=== PATIENT | female | born 1955 | race Caucasian/White ===

== ENCOUNTER 2020-04-28 10:26 | Outpatient (REF) | payer MEDICARE, SELFPAY ==
--- NOTE | 2020-04-28 10:35 | MM_ITS ---
EXAMINATION: BONE DENSITOMETRY CLINICAL INDICATION: Age-related osteoporosis without current pathological fracture. COMPARISON: Previous BD dated 05/17/2018 and baseline BD dated 01/31/2008. TECHNIQUE: Using a Manifest DXA System (software version: 13.1) manufactured by [employer], dual-energy x-ray absorptiometry was performed of the lumbar spine and left hip. The images are of good technical quality. Summary results are attached. FINDINGS: AP SPINE L1-L4: Current: BMD 1.152 g/cm2, Z-score 1.2, T-score -0.2, normal, 6.1% increase from previous, 5.6% increase from baseline (<5% change is not significant). Prior: BMD 1.086 g/cm2. Baseline: BMD 1.091 g/cm2. LEFT FEMUR, NECK: Current: BMD 0.716 g/cm2, Z-score -0.9, T-score -2.3, osteopenia. Prior: BMD 0.668 g/cm2. Baseline: BMD 0.821 g/cm2. LEFT FEMUR, TOTAL: Current: BMD 0.831 g/cm2, Z-score -0.3, T-score -1.4, osteopenia, 1.7% decrease from previous, 10.7% decrease from baseline (<5% change is not significant). Prior: BMD 0.845 g/cm2. Baseline: BMD 0.931 g/cm2. IDENTIFIED RISK FACTORS: Osteoporosis. Chronic glucocorticoids. Menopause. HISTORY OF FRACTURE: None listed. MEDICATIONS: Calcium supplement and/or multivitamin. Vitamin D. Bisphosphonates. IMPRESSION: 1. DIAGNOSIS: Osteopenia based on the lowest T-score value of -2.3 in the femoral neck applying World Health Organization criteria. 2. 10-YEAR FRACTURE RISK PREDICTION, FRAX: Major osteoporotic fracture (clinical spine, forearm, hip or shoulder) 19.8%. Hip fracture 4.6%. 3. Treatment Recommendations: NOF guidelines recommend consideration for treatment in postmenopausal women and men age 50 and older presenting with the following: -A hip or vertebral (clinical or morphometric) fracture. -T-score less than or equal to -2.5 at the femoral neck or spine after appropriate evaluation to exclude secondary causes. -Low bone mass at the hip or spine and a 10-year fracture probability by FRAX of greater than or equal to 3% for hip fracture or greater than or equal to 20% for major osteoporotic fracture based on the [place] adapted WHO algorithm. 4. Other Recommendations: All treatment decisions require clinical judgment and consideration of individual patient factors, including patient preferences, comorbidities, previous drug use, risk factors not captured in the FRAX model (e.g. frailty, falls, vitamin D deficiency, increased bone turnover, interval significant decline in bone density) and possible under or overestimation of fracture risk by FRAX. Additional medical evaluation for secondary cause of low bone mineral density may be appropriate. FUTURE SCAN RECOMMENDATION: People with diagnosed cases of osteoporosis or at high risk for fracture should have regular bone mineral density tests. For patients eligible for Medicare, routine testing is allowed once every 2 years. The testing frequency can be increased to one year for patients who have rapidly progressing disease, those who are receiving or discontinuing medical therapy to restore bone mass, or have additional risk factors.
== END 2020-04-28 10:27 | disposition home or self-care (01) ==
LOC: HO.MAMMO 10:26
PROVIDERS: Visit Provider Internal Medicine Endocrinology, Diabetes & Metabolism
DX: Z13.820 Encounter for screening for osteoporosis (principal); M85.80 Other specified disorders of bone density and structure, unspecified site; E27.49 Other adrenocortical insufficiency; Z78.0 Asymptomatic menopausal state
CPT/HCPCS: 77080

== ENCOUNTER 2020-05-19 10:41 | Outpatient (REF) | payer MEDICARE, SELFPAY ==
[2020-05-19 12:26] LABS: Alanine Aminotransferase 22 U/L (0-31); Albumin Level 4.1 g/dL (3.5-5.0); Alkaline Phosphatase 42 U/L (39-117); Anion Gap 11 (12-20); Aspartate Amino Transferase 27 U/L (5-31); Bilirubin Total 0.8 mg/dL (0.0-1.0); Blood Urea Nitrogen 12 mg/dL (9-16); Calcium 8.9 mg/dL (8.4-10.2); Carbon Dioxide 30 mmol/L (22-29); Chloride 102 mmol/L (96-108); Estimated Glomerular Filt Rate > 60; Glucose Random 94 mg/dL (60-115); Potassium 4.6 mmol/l (3.3-5.1); Sodium 138 mmol/L (135-145)
[2020-05-19 12:48] LABS: Free T4 (Free Thyroxine) 1.32 ng/dL (0.71-1.85); Thyroid Stimulating Hormone 3.17 mIU/mL (0.32-4.0); Vitamin D 25-OH Total 41.3 ng/mL (>30)
[2020-06-02 14:47] LABS: N-Telopeptide 14 (see note); NTXCreaRU 148 mg/dL (20-275)
== END 2020-05-19 10:42 | disposition home or self-care (01) ==
LOC: HO.LAB 10:41
PROVIDERS: PCP Internal Medicine; Visit Provider Internal Medicine Endocrinology, Diabetes & Metabolism
DX: E27.40 Unspecified adrenocortical insufficiency (principal); E06.3 Autoimmune thyroiditis; M81.0 Age-related osteoporosis without current pathological fracture
CPT/HCPCS: 80053; 82306; 82523; 84439; 84443

== ENCOUNTER → 2020-06-01 10:45 | Outpatient (BNVA) | payer MEDICARE, SELFPAY | PROVIDERS: PCP Internal Medicine; Visit Provider Internal Medicine Endocrinology, Diabetes & Metabolism | DX: E27.40 Unspecified adrenocortical insufficiency (principal); M81.0 Age-related osteoporosis without current pathological fracture; E03.8 Other specified hypothyroidism; E06.3 Autoimmune thyroiditis; Z79.899 Other long term (current) drug therapy | CPT/HCPCS: 99212 ==

== ENCOUNTER 2020-09-17 11:08 | Outpatient (REF) | payer MEDICARE, SELFPAY ==
[2020-09-17 11:27] LABS: MANUAL DIFF FLAG NO
[2020-09-17 11:36] LABS: Basophils Percent Auto 0.8 % (0-2); Eosinophils Absolute Auto 0.2 X10*3/uL (0.0-0.4); Hematocrit 39.4 % (37-47); Hemoglobin 12.6 g/dl (12.0-16.0); Imm Gran Abs Auto 0.01 X10*3/uL (0.00-0.03); Imm Gran Pct Auto 0.3 % (0.0-0.4); Lymphocytes Absolute Auto 1.6 X10*3/uL (1.2-4.9); Lymphocytes Percent Auto 38.8 % (20-40); Mean Corpuscular Hemoglobin 28.1 pg (27.0-33.0); Mean Corpuscular Volume 87.9 fL (80-98); Mean Platelet Volume 11.9 fL (9.4-12.3); Monocytes Absolute Auto 0.4 X10*3/uL (0.1-1.2); Monocytes Percent Auto 8.8 % (2-11); Neutrophils Absolute Auto 1.9 X10*3/uL (2.0-8.3); Neutrophils Percent Auto 47.3 % (45-73); Platelet Count 183 X10*3/uL (160-400); Red Blood Count 4.48 X10*6/uL (4.20-5.50); Red Cell Distribution Width 12.6 % (11.0-16.0)
[2020-09-17 12:32] LABS: Alanine Aminotransferase 33 U/L (0-31); Albumin Level 4.1 g/dL (3.5-5.0); Alkaline Phosphatase 39 U/L (39-117); Anion Gap 13 (12-20); Aspartate Amino Transferase 24 U/L (5-31); Bilirubin Direct 0.2 mg/dL (0.0-0.5); Bilirubin Total 0.4 mg/dL (0.0-1.0); Blood Urea Nitrogen 15 mg/dL (9-16); Carbon Dioxide 27 mmol/L (22-29); Chloride 104 mmol/L (96-108); Estimated Glomerular Filt Rate > 60; Glucose Random 97 mg/dL (60-115); Potassium 4.5 mmol/L (3.3-5.1); Sodium 139 mmol/L (135-145); Total Protein 6.9 g/dL (6.5-8.0)
[2020-09-21 13:57] LABS: Hepatitis B Viral DNA Qn - cp <1.00 NOT DETECTED Log IU/mL (NOT DETECTED); Hepatitis B Viral DNA Qn-IU/mL <10 NOT DETECTED IU/mL (NOT DETECTED)
[2020-09-21 16:17] LABS: FIB-ALT 28 U/L (6-29); FIB-Alpha-2-Macroglobulin 168 mg/dL (106-279); FIB-Apolipoprotein A1 173 mg/dL (101-198); FIB-GGT 22 U/L (3-65); FIB-Haptoglobin 109 mg/dL (43-212); FIB-Total Bilirubin 0.4 mg/dL (0.2-1.2); Liver Fibrosis Score 0.13; Liver Fibrosis Stage F0; Nec Inflam Act Grade A0
[2020-09-23 20:52] LABS: Hepatitis Delta Antibody NEGATIVE
== END 2020-09-17 11:09 | disposition home or self-care (01) ==
LOC: HO.LAB 11:08
PROVIDERS: PCP Internal Medicine; Visit Provider Internal Medicine
DX: B19.10 Unspecified viral hepatitis B without hepatic coma (principal)
CPT/HCPCS: 36415; 80048; 80076; 81596; 85025; 86692; 87517

== ENCOUNTER → 2020-10-04 10:53 | Outpatient (BNVA) | payer MEDICARE, SELFPAY | PROVIDERS: PCP Internal Medicine; Referring Provider Internal Medicine; Visit Provider Internal Medicine | DX: B19.10 Unspecified viral hepatitis B without hepatic coma (principal) | CPT/HCPCS: 99212 ==

== ENCOUNTER 2020-11-19 11:10 | Outpatient (REF) | payer MEDICARE, SELFPAY ==
[2020-11-19 14:44] LABS: Alanine Aminotransferase 12 U/L (0-31); Albumin Level 3.8 g/dL (3.5-5.0); Alkaline Phosphatase 35 U/L (39-117); Anion Gap 11 (12-20); Aspartate Amino Transferase 19 U/L (5-31); Bilirubin Total 0.6 mg/dL (0.0-1.0); Blood Urea Nitrogen 10 mg/dL (9-16); Calcium 8.4 mg/dL (8.4-10.2); Carbon Dioxide 25 mmol/L (22-29); Chloride 107 mmol/L (96-108); Estimated Glomerular Filt Rate > 60; Glucose Fasting 83 mg/dL (60-99); Sodium 139 mmol/L (135-145); Total Protein 6.4 g/dL (6.5-8.0)
[2020-11-19 14:47] LABS: Free T4 (Free Thyroxine) 1.28 ng/dL (0.71-1.85); Vitamin D 25-OH Total 40.2 ng/mL (>30)
== END 2020-11-19 11:11 | disposition home or self-care (01) ==
LOC: HO.HMGCLDS 11:10
PROVIDERS: PCP Internal Medicine; Visit Provider Internal Medicine Endocrinology, Diabetes & Metabolism
DX: M81.0 Age-related osteoporosis without current pathological fracture (principal)
CPT/HCPCS: 36415; 80053; 82306; 84439; 84443

== ENCOUNTER 2020-11-22 | Outpatient (REF) | payer MEDICARE, SELFPAY ==
[2020-11-25 22:12] LABS: N-Telopeptide 17 (see note); NTXCreaRU 123 mg/dL (20-275)
== END 2020-11-22 00:01 | disposition home or self-care (01) ==
LOC: HO.HMGCLNP
PROVIDERS: Visit Provider Internal Medicine Endocrinology, Diabetes & Metabolism
DX: M81.0 Age-related osteoporosis without current pathological fracture (principal)
CPT/HCPCS: 82523

== ENCOUNTER → 2020-11-29 10:54 | Outpatient (BNVA) | payer MEDICARE, SELFPAY | PROVIDERS: PCP Internal Medicine; Visit Provider Internal Medicine Endocrinology, Diabetes & Metabolism | DX: E27.40 Unspecified adrenocortical insufficiency (principal); E03.8 Other specified hypothyroidism; E06.3 Autoimmune thyroiditis; M81.0 Age-related osteoporosis without current pathological fracture | CPT/HCPCS: 99212 ==

== ENCOUNTER 2021-01-27 09:27 | Outpatient (REF) | payer MEDICARE, SELFPAY ==
--- NOTE | ~2021-01-27 | MM_ITS ---
EXAMINATION: MM SCREENING DIGITAL BREAST TOMOSYNTHESIS, BILATERAL CLINICAL INFORMATION: Screening. Asymptomatic. The lifetime risk of breast cancer based on the Tyrer-Cuzick Model is 4%. COMPARISON: Mammography: 09/13/2018, 09/15/2018, 09/11/2016, 12/01/2013 TECHNIQUE: Digital breast tomosynthesis is performed in both the craniocaudal and mediolateral oblique views along with computer-aided detection (CAD). Synthesized 2D images are generated from the tomosynthesis. Additional left MLO and exaggerated left CC views are provided. FINDINGS: There are scattered areas of fibroglandular density (ACR BI-RADS breast composition Category b). Parenchymal pattern is similar to prior exams. Chronic round parenchymal asymmetry posterior upper outer left breast is stable. There is no developing density or interval mass or architectural abnormality. No abnormal calcifications. The axilla and skin contours are unremarkable. MM/MM tomosynthesis screening BI IMPRESSION: No significant changes from prior exams. ASSESSMENT: BI-RADS 2: Benign RECOMMENDATION: Routine annual mammography screening. This patient's information was entered into a reminder system with a target due date for their next mammogram.
== END 2021-01-27 09:28 | disposition home or self-care (01) ==
LOC: HO.MAMMO 09:27
PROVIDERS: PCP Internal Medicine; Visit Provider Internal Medicine
DX: Z12.31 Encounter for screening mammogram for malignant neoplasm of breast (principal)
CPT/HCPCS: 77063; 77067

== ENCOUNTER 2021-05-13 14:26 | Outpatient (REF) | payer MEDICARE, SELFPAY ==
--- NOTE | ~2021-05-13 | XR_ITS ---
EXAMINATION: XR SHOULDER, LEFT CLINICAL INFORMATION: Pain COMPARISON: None TECHNIQUE: Three views of the left shoulder. FINDINGS: No fracture or dislocation. The glenohumeral joint is well aligned. Mild narrowing of the joint space with osteophyte formation. Associated soft tissue calcification. Moderate hypertrophic degenerative change at the acromioclavicular joint which is well aligned. Soft tissue calcification seen in the subacromial region. The visualized lung is clear. The visualized ribs are intact. XR/XR shoulder LT min 2V IMPRESSION: Moderate degenerative changes at the left shoulder. Possible calcific tendinosis of the rotator cuff.
== END 2021-05-13 14:27 | disposition home or self-care (01) ==
LOC: HO.HMGCX 14:26
PROVIDERS: PCP Internal Medicine; Visit Provider Internal Medicine
DX: M25.512 Pain in left shoulder (principal)
CPT/HCPCS: 73030

== ENCOUNTER 2021-05-30 11:00 | Outpatient (REF) | payer MEDICARE, SELFPAY ==
[2021-05-30 11:53] LABS: Hematocrit 40.3 % (37.0-47.0); Hemoglobin 12.9 g/dl (12.0-16.0); Mean Corpuscular Hemoglobin 28.3 pg (27.0-33.0); Mean Corpuscular Volume 88.4 fL (80.0-98.0); Mean Platelet Volume 11.6 fL (9.4-12.3); Platelet Count 197 X10*3/uL (160-400); Red Blood Count 4.56 X10*6/uL (4.20-5.50); Red Cell Distribution Width 12.6 % (11.0-16.0); White Blood Count 4.9 X10*3/uL (4.8-10.8)
[2021-05-30 12:29] LABS: Alanine Aminotransferase 14 U/L (0-31); Alkaline Phosphatase 38 U/L (39-117); Anion Gap 13 (12-20); Aspartate Amino Transferase 18 U/L (5-31); Bilirubin Total 0.6 mg/dL (0.0-1.0); Blood Urea Nitrogen 15 mg/dL (9-16); Calcium 9.1 mg/dL (8.4-10.2); Carbon Dioxide 24 mmol/L (22-29); Chloride 104 mmol/L (96-108); Cholesterol 278 mg/dL; Estimated Glomerular Filt Rate > 60; Glucose Fasting 91 mg/dL (60-99); HDL Cholesterol 53 mg/dL; LDL Cholesterol Calculated 197 mg/dl; Potassium 4.2 mmol/L (3.3-5.1); Sodium 137 mmol/L (135-145); Total Protein 6.8 g/dL (6.5-8.0); Triglycerides 140 mg/dL
[2021-05-30 12:30] LABS: TSH reflex Free T4 3.56 uIU/mL (0.32-4.0)
== END 2021-05-30 11:01 | disposition home or self-care (01) ==
LOC: HO.LAB 11:00
PROVIDERS: PCP Internal Medicine; Visit Provider Internal Medicine
DX: E78.5 Hyperlipidemia, unspecified (principal); E03.9 Hypothyroidism, unspecified; M81.0 Age-related osteoporosis without current pathological fracture
CPT/HCPCS: 36415; 80053; 80061; 84443; 85027

== ENCOUNTER → 2021-06-13 08:16 | Outpatient (BNVA) | payer MEDICARE, SELFPAY | PROVIDERS: PCP Internal Medicine; Visit Provider Internal Medicine | DX: E03.8 Other specified hypothyroidism (principal); E06.3 Autoimmune thyroiditis; E27.40 Unspecified adrenocortical insufficiency; E55.9 Vitamin D deficiency, unspecified; M81.0 Age-related osteoporosis without current pathological fracture | CPT/HCPCS: 99212 ==

== ENCOUNTER 2021-06-15 08:21 | Outpatient (REF) | payer MEDICARE, SELFPAY ==
[2021-06-15 09:22] LABS: Anion Gap 11 (12-20); Blood Urea Nitrogen 14 mg/dL (9-16); Calcium 10.2 mg/dL (8.4-10.2); Carbon Dioxide 29 mmol/L (22-29); Chloride 106 mmol/L (96-108); Estimated Glomerular Filt Rate 53; Glucose Random 94 mg/dL (60-115); Potassium 4.5 mmol/L (3.3-5.1); Sodium 141 mmol/L (135-145)
[2021-06-15 10:47] LABS: Cortisol Random 1.6 ug/dL
[2021-06-17 19:36] LABS: Adrenocorticotropic Hormone 22 pg/mL (6-50)
== END 2021-06-15 08:22 | disposition home or self-care (01) ==
LOC: HO.LAB 08:21
PROVIDERS: PCP Internal Medicine; Visit Provider Internal Medicine
DX: E27.40 Unspecified adrenocortical insufficiency (principal)
CPT/HCPCS: 36415; 80048; 82024; 82533

== ENCOUNTER 2021-06-20 10:37 | Outpatient (REF) | payer MEDICARE, SELFPAY ==
--- NOTE | ~2021-06-20 | MR_ITS ---
EXAMINATION: MR BRAIN WITHOUT AND WITH CONTRAST CLINICAL INFORMATION: Unspecified adrenal cortical insufficiency. COMPARISON: CT scan of the head 02/09/2019. TECHNIQUE: Multiplanar MR imaging of the brain was performed without and with contrast. A total of 3.5 mL Gadavist was utilized for this examination. FINDINGS: There is a questionable rounded focus of differential enhancement involving the anterior lobe of the pituitary gland best depicted on coronal image 31 of 37 series 9 measuring 0.3 cm in diameter. No suprasellar mass effect or chiasmatic compression. The overall size of the pituitary tissue remains within limits of normal variation measuring 0.4 cm in height. No suprasellar mass effect or chiasmatic compression. The pituitary stalk deviates to the right. Cavernous sinuses enhance symmetrically. Cavernous internal carotid artery flow voids are maintained. Postcontrast images reveal no abnormal mass or enhancement within the intracranial compartment. No intracranial mass effect or midline shift. Lateral and third ventricles are normal. No hydrocephalus. Midline structures including the cervicomedullary junction are normal. No acute bone marrow signal changes. There is no mastoid or middle ear effusion. Mild paranasal sinus mucosal thickening within ethmoid air cells and the maxillary sinuses. Globes and orbits are symmetric. MR/MR head/brain wo/w con IMPRESSION: There is a questionable rounded lesion within the anterior lobe of the pituitary gland. The overall size of the pituitary gland however remains within limits of normal variation. No suprasellar mass effect or chiasmatic compression. No abnormal mass or enhancement visualized elsewhere within the intracranial compartment.
== END 2021-06-20 10:38 | disposition home or self-care (01) ==
LOC: HO.MRI 10:37
PROVIDERS: PCP Internal Medicine; Visit Provider Internal Medicine
DX: E27.40 Unspecified adrenocortical insufficiency (principal)
CPT/HCPCS: 70553; A9585

== ENCOUNTER 2021-06-28 10:26 | Outpatient (REF) | payer MEDICARE, SELFPAY ==
--- NOTE | ~2021-06-28 | US_ITS ---
EXAMINATION: US THYROID CLINICAL INFORMATION: Other specified hypothyroidism. COMPARISON: None. TECHNIQUE: Linear transducer grayscale and color Doppler examination with attention to the region of the thyroid. FINDINGS: SIZE: Measurements of the thyroid lobes and nodules are given in sagittal, anteroposterior and transverse dimensions respectively. Right Thyroid Lobe: 3.5 x 1.5 x 1.1 cm, volume 3.0 mL. Parenchyma: The gland echotexture is heterogeneous. Thyroid vascularity is normal. Left Thyroid Lobe: 4.2 x 1.7 x 1.0 cm, volume 3.7 mL. Parenchyma: The gland echotexture is heterogeneous. Thyroid vascularity is normal. Isthmus: 0.4 cm in maximum AP dimension. No focal thyroid nodule is seen. NODES: No lymphadenopathy is seen in the tissue surrounding the thyroid gland. US/US thyroid IMPRESSION: Non-enlarged heterogenous thyroid lobes without nodules. ACR TI-RADS RECOMMENDATION REFERENCE: Ultrasound-guided fine-needle aspiration, followup ultrasound, no further follow up. * TR1 (0 point) and TR 2 (2 points): No FNA or follow up * TR3 (3 points): FNA if more than or equal to 2.5 cm in maximum dimension, followup ultrasound in 1, 3 and 5 years if 1.5 to 2.4 cm in maximum dimension. * TR4 (4-6 points): FNA if more than or equal to 1.5 cm in maximum dimension, followup ultrasound in 1, 2, 3 and 5 years if 1 to 1.4 cm in maximum dimension. * TR5 (more than or equal to 7 points): FNA if more than or equal to 1 cm in maximum dimension, followup ultrasound every year for 5 years if 0.5 to 0.9 cm in maximum dimension. * TR3, TR4 or TR5 nodules that are below the size threshold for follow up receive no follow up.
== END 2021-06-28 10:27 | disposition home or self-care (01) ==
LOC: HO.HMGCX 10:26
PROVIDERS: PCP Internal Medicine; Visit Provider Internal Medicine
DX: E03.8 Other specified hypothyroidism (principal); E06.3 Autoimmune thyroiditis
CPT/HCPCS: 76536

== ENCOUNTER 2021-06-29 09:47 | Outpatient (REF) | payer MEDICARE, SELFPAY ==
[2021-07-01 20:07] LABS: HPV mRNA E6/E7 Not Detected (Not Detected)
== END 2021-06-29 09:48 | disposition home or self-care (01) ==
LOC: HO.LAB 09:47
PROVIDERS: Visit Provider Internal Medicine
DX: Z00.00 Encounter for general adult medical examination without abnormal findings (principal); H93.19 Tinnitus, unspecified ear; Z11.51 Encounter for screening for human papillomavirus (HPV)
CPT/HCPCS: 87624; 88142

== ENCOUNTER → 2021-09-19 10:54 | Outpatient (BNVA) | payer MEDICARE, SELFPAY | PROVIDERS: Visit Provider Internal Medicine | DX: B19.10 Unspecified viral hepatitis B without hepatic coma (principal) | CPT/HCPCS: 99212 ==

== ENCOUNTER 2021-10-28 09:01 | Outpatient (REF) | payer MEDICARE, SELFPAY ==
[2021-10-28 10:22] LABS: INTERNATIONAL NORM RATIO 0.9 (0.9-1.1); Prothrombin Time 10.6 SEC (9.9-13.0)
[2021-10-28 10:48] LABS: Osmolality, Serum 294 mosm/kg (281-305)
[2021-10-28 10:59] LABS: Alanine Aminotransferase 76 U/L (0-31); Albumin Level 4.2 g/dL (3.5-5.0); Alkaline Phosphatase 92 U/L (39-117); Anion Gap 11 (12-20); Aspartate Amino Transferase 56 U/L (5-31); Bilirubin Total 0.6 mg/dL (0.0-1.0); Blood Urea Nitrogen 16 mg/dL (9-16); Calcium 9.7 mg/dL (8.4-10.2); Carbon Dioxide 27 mmol/L (22-29); Chloride 105 mmol/L (96-108); Cholesterol 186 mg/dL; Estimated Glomerular Filt Rate 59; Glucose Fasting 92 mg/dL (60-99); HDL Cholesterol 65 mg/dL; LDL Cholesterol Calculated 106 mg/dl; Phosphorus 3.4 mg/dL (2.7-4.5); Potassium 4.4 mmol/L (3.3-5.1); Sodium 139 mmol/L (135-145); Total Protein 7.2 g/dL (6.5-8.0); Triglycerides 76 mg/dL
[2021-10-28 11:06] LABS: Free T4 (Free Thyroxine) 1.43 ng/dL (0.71-1.85); Vitamin D 25-OH Total 44.2 ng/mL (>30)
[2021-10-28 11:09] LABS: Thyroid Stimulating Hormone 0.86 uIU/mL (0.32-4.0)
[2021-10-28 12:00] LABS: Cortisol Random 6.6 ug/dL
[2021-10-31 16:27] LABS: Hepatitis B Viral DNA Qn - cp <1.00 NOT DETECTED Log IU/mL (NOT DETECTED); Hepatitis B Viral DNA Qn-IU/mL <10 NOT DETECTED IU/mL (NOT DETECTED)
[2021-10-31 20:51] LABS: Follicle Stimulating Hormone 21.5 mIU/mL; Prolactin 5.1 ng/mL; Sex Hormone Binding Globulin 39 nmol/L (14-73)
[2021-10-31 21:31] LABS: Triiodothyronine T3 Total 95 ng/dL (76-181)
[2021-11-01 15:51] LABS: Calcium, Ionized 5.2 mg/dL (4.8-5.6)
[2021-11-01 18:27] LABS: FIB-ALT 68 U/L (6-29); FIB-Alpha-2-Macroglobulin 204 mg/dL (106-279); FIB-Apolipoprotein A1 213 mg/dL (101-198); FIB-GGT 153 U/L (3-65); FIB-Haptoglobin 127 mg/dL (43-212); FIB-Total Bilirubin 0.7 mg/dL (0.2-1.2); Liver Fibrosis Score 0.31; Liver Fibrosis Stage F1; Nec Inflam Act Grade A1-A2; Nec Inflam Act Score 0.41
[2021-11-01 21:46] LABS: Adrenocorticotropic Hormone 18 pg/mL (6-50)
[2021-11-01 22:42] LABS: Prot Elec - Albumin 4.1 g/dL (3.8-4.8); Prot Elec - Alpha1 0.3 g/dL (0.2-0.3); Prot Elec - Alpha2 0.8 g/dL (0.5-0.9); Prot Elec - Beta 1 0.4 g/dL (0.4-0.6); Prot Elec - Beta 2 0.3 g/dL (0.2-0.5); Prot Elec - Gamma 1.2 g/dL (0.8-1.7)
[2021-11-02 00:21] LABS: Calcium (PTHI) 9.9 mg/dL (8.6-10.4); PTHI 48 pg/mL (16-77)
[2021-11-03 15:36] LABS: IGF-1 (Somatomedin C) 55 ng/mL (41-279); IGF-1 Z Score (Female) -1.4 SD (-2.0 - +2.0)
[2021-11-05 15:35] LABS: N-Telopeptide 21 (see note); NTXCreaRU 120 mg/dL (20-275)
[2021-11-05 20:52] LABS: Estradiol Free <0.03 pg/mL; Estradiol, Ultrasensitive <2 pg/mL
== END 2021-10-28 09:02 | disposition home or self-care (01) ==
LOC: HO.HMGCLDS 09:01
PROVIDERS: Internal Medicine; PCP Internal Medicine; Visit Provider Internal Medicine
DX: E78.5 Hyperlipidemia, unspecified (principal); E27.40 Unspecified adrenocortical insufficiency; E55.9 Vitamin D deficiency, unspecified; B19.10 Unspecified viral hepatitis B without hepatic coma; M81.0 Age-related osteoporosis without current pathological fracture; E03.8 Other specified hypothyroidism; E06.3 Autoimmune thyroiditis
CPT/HCPCS: 36415; 80053; 80061; 81596; 82024; 82306; 82330; 82523; 82533; 82670; 82681; 83001; 83002; 83930; 83970; 84075; 84100; 84146; 84165; 84270; 84305; 84439; 84443; 84480; 85610; 87517

== ENCOUNTER 2021-11-02 11:34 | Outpatient (REF) | payer MEDICARE, SELFPAY ==
[2021-11-02 15:00] LABS: Creatinine, mg/dL 60.36
[2021-11-03 06:50] LABS: Total Volume 24 Hour Urine 1625 mL
[2021-11-04 17:11] LABS: Calcium, 24 Hr Urine 140 mg/24 h; Calcium/Creatinine Ratio 132 mg/g creat (30-275); Creatinine 24Hr Urine 1.06 g/24 h (0.50-2.15)
== END 2021-11-02 11:35 | disposition home or self-care (01) ==
LOC: HO.HMGCLNP 11:34
PROVIDERS: Visit Provider Internal Medicine
DX: M81.0 Age-related osteoporosis without current pathological fracture (principal)
CPT/HCPCS: 82340; 82570

== ENCOUNTER → 2021-11-07 08:01 | Outpatient (BNVA) | payer MEDICARE, SELFPAY | PROVIDERS: Visit Provider Internal Medicine | DX: M81.0 Age-related osteoporosis without current pathological fracture (principal); E27.40 Unspecified adrenocortical insufficiency; E03.8 Other specified hypothyroidism; E06.3 Autoimmune thyroiditis; E55.9 Vitamin D deficiency, unspecified; D35.2 Benign neoplasm of pituitary gland; Z79.899 Other long term (current) drug therapy | CPT/HCPCS: Q3014 ==

== ENCOUNTER 2021-11-08 09:55 | Outpatient (REF) | payer MEDICARE, SELFPAY ==
--- NOTE | ~2021-11-08 | US_ITS ---
EXAMINATION: US ABDOMEN COMPLETE CLINICAL INFORMATION: Unspecified viral hepatitis B without hepatic coma. COMPARISON: Ultrasound abdomen 04/13/2020 and 02/09/2019. TECHNIQUE: Real-time imaging of the abdominal viscera. FINDINGS: PANCREAS: Much of the pancreas is obscured by bowel gas. Visualized portions of the pancreatic head and body are unremarkable. ABDOMINAL AORTA: INFERIOR VENA CAVA: Visualized portions are normal. LIVER: Question slightly increased echotexture of the liver parenchyma. The liver is normal in size. The liver contour is normal. No focal hepatic lesion. There is no intrahepatic biliary duct dilatation seen. GALLBLADDER: The gallbladder is physiologically distended. There is a mobile echogenic gallstone near the neck of the gallbladder. There is a possible 3 x 2 mm structure along the gallbladder wall represent a tiny polyp or focus of redundant mucosa. There is no wall thickening or pericholecystic fluid. No sonographic Gutiérrez sign. COMMON BILE DUCT: Normal in caliber measuring 0.4 cm in diameter. RIGHT KIDNEY: There is a 1.2 x 0.8 x 1.1 cm simple cyst at the midpole. Minimal fullness of the renal pelvis without calyceal dilation. Hydronephrosis or renal calculi. The kidney measures 9.8 cm in maximum dimension. LEFT KIDNEY: There is an 8 x 6 x 7 mm simple cyst at the lower pole. No hydronephrosis or renal calculi. The kidney measures 9.5 cm in maximum dimension. SPLEEN: Normal. The spleen measures 7.1 cm in maximum dimension. FREE FLUID: None. US/US abdomen complete IMPRESSION: Arguable slightly increased echogenicity of liver parenchyma, otherwise unremarkable appearance of the liver. Cholelithiasis and possible 3 x 2 mm polyp versus redundant mucosa along the wall the gallbladder. Minimal fullness of the right renal pelvis.
== END 2021-11-08 09:56 | disposition home or self-care (01) ==
LOC: HO.US 09:55
PROVIDERS: Visit Provider Internal Medicine
DX: B19.10 Unspecified viral hepatitis B without hepatic coma (principal)
CPT/HCPCS: 76700

== ENCOUNTER 2021-11-09 07:57 | Outpatient (REF) | payer MEDICARE, SELFPAY ==
[2021-11-09 08:51] LABS: Alanine Aminotransferase 69 U/L (0-31); Albumin Level 4.1 g/dL (3.5-5.0); Alkaline Phosphatase 95 U/L (39-117); Anion Gap 11 (12-20); Aspartate Amino Transferase 49 U/L (5-31); Bilirubin Direct 0.3 mg/dL (0.0-0.5); Bilirubin Total 0.7 mg/dL (0.0-1.0); Blood Urea Nitrogen 19 mg/dL (9-16); Calcium 9.6 mg/dL (8.4-10.2); Carbon Dioxide 27 mmol/L (22-29); Chloride 106 mmol/L (96-108); Estimated Glomerular Filt Rate 58; Glucose Random 91 mg/dL (60-115); Phosphorus 3.9 mg/dL (2.7-4.5); Potassium 4.2 mmol/L (3.3-5.1); Sodium 140 mmol/L (135-145); Total Protein 6.9 g/dL (6.5-8.0)
[2021-11-09 09:08] LABS: Osmolality, Serum 296 mosm/kg (281-305)
[2021-11-09 09:13] LABS: Free T4 (Free Thyroxine) 1.65 ng/dL (0.71-1.85); Thyroid Stimulating Hormone 0.96 uIU/mL (0.32-4.0); Vitamin D 25-OH Total 42.5 ng/mL (>30)
[2021-11-09 09:53] LABS: Cortisol Random 2.4 ug/dL
[2021-11-11 06:46] LABS: Triiodothyronine T3 Total 90 ng/dL (76-181)
[2021-11-11 07:16] LABS: DHEA Sulfate 5 mcg/dL (9-118); Sex Hormone Binding Globulin 43 nmol/L (14-73)
[2021-11-11 18:46] LABS: Follicle Stimulating Hormone 20.6 mIU/mL; Lutenizing Hormone 7.1 mIU/mL; Prolactin Undiluted 5.2 ng/mL
[2021-11-14 07:17] LABS: Calcium (PTHI) 9.5 mg/dL (8.6-10.4); PTHI 34 pg/mL (16-77)
[2021-11-14 21:31] LABS: Adrenocorticotropic Hormone 24 pg/mL (6-50)
[2021-11-18 15:42] LABS: IGF-1 (Somatomedin C) 52 ng/mL (41-279); IGF-1 Z Score (Female) -1.5 SD (-2.0 - +2.0)
[2021-12-01 22:54] LABS: Estradiol Free <0.04 pg/mL; Estradiol, Ultrasensitive <2 pg/mL
== END 2021-11-09 07:58 | disposition home or self-care (01) ==
LOC: HO.LAB 07:57
PROVIDERS: PCP Internal Medicine; Visit Provider Internal Medicine
DX: M81.0 Age-related osteoporosis without current pathological fracture (principal); E27.40 Unspecified adrenocortical insufficiency; D35.2 Benign neoplasm of pituitary gland; B19.10 Unspecified viral hepatitis B without hepatic coma
CPT/HCPCS: 36415; 80048; 80076; 82024; 82306; 82533; 82627; 82670; 82681; 83001; 83002; 83930; 83970; 84100; 84146; 84270; 84305; 84439; 84443; 84480

== ENCOUNTER 2022-02-02 10:30 | Outpatient (REF) | payer MEDICARE, SELFPAY ==
--- NOTE | ~2022-02-02 | MM_ITS ---
EXAMINATION: MM SCREENING DIGITAL BREAST TOMOSYNTHESIS, BILATERAL CLINICAL INFORMATION: Screening. Asymptomatic. The lifetime risk of breast cancer based on the Tyrer-Cuzick Model is 3.5%. COMPARISON: Mammography: January 27, 2021 and studies dating back to June 30, 2009 TECHNIQUE: Digital breast tomosynthesis is performed in both the craniocaudal and mediolateral oblique views along with computer-aided detection (CAD). Synthesized 2D images are generated from the tomosynthesis. FINDINGS: There are scattered areas of fibroglandular density (ACR BI-RADS breast composition Category b). There are no significant masses, abnormal calcifications, or other abnormalities. Stable ill-defined density with calcifications again seen upper outer aspect of the left breast. MM/MM tomosynthesis screening BI IMPRESSION: There are no significant changes from prior study. ASSESSMENT: BI-RADS 2: Benign RECOMMENDATION: Routine annual mammography screening. This patient's information was entered into a reminder system with a target due date for their next mammogram.
== END 2022-02-02 10:31 | disposition home or self-care (01) ==
LOC: HO.MAMMO 10:30
PROVIDERS: Visit Provider Internal Medicine
DX: Z12.31 Encounter for screening mammogram for malignant neoplasm of breast (principal)
CPT/HCPCS: 77063; 77067

== ENCOUNTER → 2022-02-13 07:50 | Outpatient (BNVA) | payer MEDICARE, SELFPAY | PROVIDERS: PCP Internal Medicine; Visit Provider Internal Medicine | DX: M81.0 Age-related osteoporosis without current pathological fracture (principal); E27.40 Unspecified adrenocortical insufficiency; E03.8 Other specified hypothyroidism; E06.3 Autoimmune thyroiditis; E55.9 Vitamin D deficiency, unspecified; D35.2 Benign neoplasm of pituitary gland; E23.0 Hypopituitarism; Z79.899 Other long term (current) drug therapy | CPT/HCPCS: 99212 ==

== ENCOUNTER 2022-02-28 13:51 | Outpatient (REF) | payer MEDICARE, SELFPAY ==
[2022-02-28 16:32] LABS: Anion Gap 14 (12-20); Blood Urea Nitrogen 15 mg/dL (9-16); Calcium 8.9 mg/dL (8.4-10.2); Carbon Dioxide 26 mmol/L (22-29); Chloride 104 mmol/L (96-108); Estimated Glomerular Filt Rate 53; Glucose Random 94 mg/dL (60-115); Potassium 4.2 mmol/L (3.3-5.1); Sodium 140 mmol/L (135-145)
[2022-02-28 16:49] LABS: Cortisol Random 1.8 ug/dL
[2022-03-01 20:26] LABS: DHEA Sulfate 7 mcg/dL (9-118)
== END 2022-02-28 13:52 | disposition home or self-care (01) ==
LOC: HO.LAB 13:51
PROVIDERS: PCP Internal Medicine; Visit Provider Internal Medicine
DX: E27.40 Unspecified adrenocortical insufficiency (principal); M81.0 Age-related osteoporosis without current pathological fracture
CPT/HCPCS: 36415; 80048; 82040; 82533; 82627

== ENCOUNTER 2022-05-26 06:06 | Inpatient (IN) | payer MEDICARE, SELFPAY ==
[2022-05-26 06:22] VITALS: BP 164/78; PULSE 67; RESP 16; TEMP 36.6; O2SAT 98; BMI 27.8
[2022-05-26 06:35] LABS: Eosinophils Absolute Auto 0.1 X10*3/uL (0.0-0.4); Eosinophils Percent Auto 2.1 % (0-4); Hematocrit 38.4 % (37.0-47.0); Hemoglobin 12.7 g/dl (12.0-16.0); Lymphocytes Absolute Auto 1.4 X10*3/uL (1.2-4.9); Lymphocytes Percent Auto 59.6 % (20-40); Mean Corpuscular HGB Conc 33.1 g/dl (31.0-35.0); Mean Corpuscular Hemoglobin 27.7 pg (27.0-33.0); Mean Corpuscular Volume 83.7 fL (80.0-98.0); Mean Platelet Volume 11.2 fL (9.4-12.3); Monocytes Absolute Auto 0.4 X10*3/uL (0.1-1.2); Monocytes Percent Auto 14.6 % (2-11); Neutrophils Absolute Auto 0.6 x10*3/uL (2.0-8.3); Neutrophils Percent Auto 23.7 % (45-73); Platelet Count 147 X10*3/uL (160-400); Red Blood Count 4.59 X10*6/uL (4.20-5.50); Red Cell Distribution Width 12.2 % (11.0-16.0); SCAN SMEAR FLAG 1
[2022-05-26 06:38] LABS: MANUAL DIFF FLAG SCAN; White Blood Count 2.4 X10*3/uL (4.8-10.8)
[2022-05-26 06:42] LABS: COVID-19 Test Positive (Negative); IDNOW Serial# 9DB6401D
[2022-05-26 06:47] LABS: Influenza A Negative (Negative); Influenza B2 Negative (Negative)
[2022-05-26 06:57] LABS: Alanine Aminotransferase 27 U/L (0-31); Alkaline Phosphatase 58 U/L (39-117); Anion Gap 14 (12-20); Aspartate Amino Transferase 29 U/L (5-31); Bilirubin Total 0.6 mg/dL (0.0-1.0); Blood Urea Nitrogen 11 mg/dL (9-16); Carbon Dioxide 25 mmol/L (22-29); Chloride 95 mmol/L (96-108); Creatinine Clr Calc Pharmacy 58.5; Estimated Glomerular Filt Rate > 60; Glucose Random 95 mg/dL (60-115); Potassium 4.1 mmol/L (3.3-5.1); Sodium 130 mmol/L (135-145); Total Protein 6.8 g/dL (6.5-8.0)
[2022-05-26 07:15] LABS: SLIDE REVIEW VERIFIED
--- NOTE | 2022-05-26 07:19 | ED_ITS ---
HPI - Nausea/Vomiting/Diarrhea General Chief complaint: Nausea/Vomiting/Diarrhea Stated complaint: Vomiting, Endo Doc referred her to come in Time Seen by Provider: 05/26/22 06:59 Source: patient and family History of Present Illness HPI Narrative: 58-year-old female with past medical history of adrenal insufficiency presents to the emergency department today complaining of nausea and vomiting. Has been going on for approximately 24 hours. Patient has been unable to take her regular dose of hydrocortisone secondary to nausea and vomiting. The patient st ates she was diagnosed COVID several days ago, and has a mild cough, but no other significant symptoms until the vomiting started yesterday. It is moderate and intermittent. MD elicited complaint: nausea and vomiting Onset (ago): day(s) (1) Associated nausea: Yes Associated abdominal pain: No Severity: moderate Relieving factors: none Related Data Previous Rx's Medication Instructions Recorded levothyroxine 100 mcg tablet 100 mcg PO DAILY 90 days #90 tabs 09/02/21 atorvastatin 40 mg tablet (Lipitor) 40 mg PO DAILY #90 tabs 09/05/21 hydrocortisone 5 mg tablet See Rx Instructions PO BID 90 days 02/13/22 #270 tabs hydrocortisone sod succ (PF) 100 100 mg (2 mL) IM ONCE PRN Unable 02/13/22 mg/2 mL solution for injection to tolerate PO 30 days #1 ea (Solu-Cortef Act-O-Vial (PF)) nirmatrelvir 300 mg (150 mg See Rx Instructions PO .COMPLEX 05/25/22 x2)-ritonavir 100 mg tablet,dose #30 ea pack(EUA) (Paxlovid) Allergies Allergy/AdvReac Type Severity Reaction Status Date / Time No Known Allergies Allergy Verified 02/13/22 08:21 [No Known Allergies*] Review of Systems Review of Systems: Yes all other systems are reviewed and are negative Constitutional: Constitutional: Denies chills, Denies fever(s) and Denies headache(s) Eyes: Eyes: Denies blurry vision and Denies change in vision ENT: Denies dizziness, Denies otalgia and Denies headache(s) Cardiovascular: Cardiovascular: Denies chest pain, Denies lightheadedness and Denies dyspnea Respiratory: Respiratory: Reports no additional respiratory complaints and Denies dyspnea Gastrointestinal: Gastrointestinal: Denies abdominal pain, Denies diarrhea, Reports nausea, Reports vomiting and Denies hematemesis Genitourinary: Genitourinary: Reports no additional female genitourinary complaints Musculoskeletal: Musculoskeletal: Reports no additional musculoskeletal complaints Neurologic: Reports system reviewed and no additional complaints, except as do cumented, Denies Abnormal speech present, Denies dizziness and Denies headache(s) [facility] Past Medical History Attestation statement: The following information was validated with the patient. Medical History Adrenal cortex insufficiency Adrenal insufficiency Annual physical exam Hepatitis B Hepatitis B Hyperlipidemia Hypothyroidism Osteoporosis Panhypopituitarism Pituitary microadenoma Shoulder pain Tick bite Tinnitus Vitamin D deficiency Surgical History History of carpal tunnel surgery Family History Family History Father No problems noted. Mother No problems noted. Brother Hyperparathyroidism Sister Osteoporosis Social History Social History Housing: House Alcohol intake: former Patient Tobacco Use Status: Former Tobacco user Cigarette Packs Per Day: 1 Years Smoked: 25 Smoked in Last 30 Days: No e-Cigarette/Vaping Use: Never Used Advance Directives: No Advance Directives Information Provided: No Current occupational status: employed and retired Cognitive needs: No Hearing needs: No Vision needs: Yes Physical Exam Vital Signs: Vital Signs: Last Vital Signs Temp 98.3 F 05/26/22 12:51 Pulse 72 05/26/22 12:51 Resp 20 05/26/22 12:51 BP 136/69 05/26/22 12:51 Pulse Ox 96 05/26/22 12:51 O2 Del Method 05/26/22 12:51 BMI result Body Mass Index 27.8 Vital signs normal except blood pressure noted to be mildly hypertensive Const: General: cooperative, comfortable and acute distress mild Nutritional Appearance: overweight Orientation/consciousness: patient oriented x3 HEENT: Head: Yes normal to inspection, Yes normocephalic and Yes atraumatic Ears: hearing grossly normal bilaterally and external ears normal General nose exam: Normal external nose present Face and sinus: Yes normal facial exam Mouth: Normal oral and palatal mucosa present Eyes: General: appearance normal, both eyes and all related structures Conjunctivae: conjunctivae normal Sclerae: sclerae normal Pupils: Equal, round and reactive pupils present EOM: EOMs intact bilaterally Neck: Neck: Yes normal visual inspection and Yes full ROM Resp: Effort & Inspection: normal respiratory effort, able to speak in complete sentences, no cough and no respiratory distress Cardio: Rate: regular rate Rhythm: regular rhythm GI: Inspection: Yes normal to inspection Palpation (GI): nontender and no masses : General: Yes CVA tenderness Back/Spine/Pelvis: Back: CVA tenderness Cervical Spine: normal cervical lordosis and cervical ROM normal Skin: General skin exam: no rashes or lesions noted and no pallor Neuro: General: patient oriented x3 Cranial nerves: Yes CN's II-XII intact bilaterally and Yes Equal, round and reactive pupils present Speech: No Abnormal speech present Course Consultations Consultation #1: Dr. Moran from endocrinology Time: 11:00 Medications Administered Discontinued Medications Generic Name Dose Route Start Last Admin Trade Name Freq PRN Reason Stop Dose Admin Hydrocortisone Sodium Succinate 100 mg 05/26/22 07:10 05/26/22 08:36 Hydrocortisone Sod Succ/Pf 100 Mg Vial IVPUSH 05/26/22 07:11 100 mg ONCE ONE Administration Sodium Chloride 1,000 mls @ 999 mls/hr 05/26/22 08:49 05/26/22 10:18 Ns IV 05/26/22 09:49 Infused .Q1H1M ONE Infusion Ondansetron HCl 4 mg 05/26/22 07:15 05/26/22 08:36 Ondansetron Hcl 4 Mg/2 Ml Vial IVPUSH 05/26/22 07:16 4 mg ONCE ONE Administration MDM - Nausea/Vomiting/Diarrhea MDM Narrative Medical decision making narrative: 58-year-old female with history of adrenal insufficiency presents to the emergency department today after having vomiting for 24 hours. Patient is COVID positive, which is most likely contributory cause to the patient's symptoms. She has been unable to drink or eat and therefore has not taken any of her adrenal medications in the last 24 hours. Laboratory studies were reviewed which showed a low sodium x2. Consultation was undertaken with Dr. Moran, the collection systems administrator. the patient did receive IV fluids and 100 mg of IV hydrocortisone here in the ED.The patient will be admitted to the hospital for additional management Differential Diagnosis Differential diagnosis: Likely dehydration Medical Records Attestation: I reviewed the patient's medical records. Lab Data Attestation: I reviewed the patient's lab results. Lab results narrative: low-sodium and low CO2. Low WBC count. Result diagrams: 05/26/22 06:24 05/26/22 11:35 Labs: Lab Results 05/26/22 05/26/22 05/26/22 Range/Units 06:24 06:24 06:24 WBC 2.4 L (4.8-10.8) X10*3/uL RBC 4.59 (4.20-5.50) X10*6/uL Hgb 12.7 (12.0-16.0) g/dl Hct 38.4 (37.0-47.0) % MCV 83.7 (80.0-98.0) fL MCH 27.7 (27.0-33.0) pg MCHC 33.1 (31.0-35.0) g/dl RDW 12.2 (11.0-16.0) % Plt Count 147 L D (160-400) X10*3/uL MPV 11.2 (9.4-12.3) fL Immature Gran % (Auto) 0.0 (0.0-0.4) % Neut % (Auto) 23.7 L (45-73) % Lymph % (Auto) 59.6 H (20-40) % [place] % (Auto) 14.6 H (2-11) % Eos % (Auto) 2.1 (0-4) % Baso % (Auto) 0.0 (0-2) % Lymph # (Auto) 1.4 (1.2-4.9) X10*3/uL [place] # (Auto) 0.4 (0.1-1.2) X10*3/uL Eos # (Auto) 0.1 (0.0-0.4) X10*3/uL Baso # (Auto) 0.0 (0.0-0.2) X10*3/uL Abs Immat Gran (auto) 0.00 (0.00-0.03) X10*3/uL Absolute Neuts (auto) 0.6 L (2.0-8.3) x10*3/uL Absolute Nucleated RBC 0.000 (0.0-0.012) X10*3/uL Nucleated RBC % (auto) 0.0 (0.0-0.2) /100WBC Smear Tech's Comments VERIFIED Smear Path Review SEE NOTE Sodium 130 L (135-145) mmol/L Potassium 4.1 (3.3-5.1) mmol/L Chloride 95 L (96-108) mmol/L Carbon Dioxide 25 (22-29) mmol/L Anion Gap 14 (12-20) BUN 11 (9-16) mg/dL Creatinine 0.87 (0.5-1.4) mg/dL Estim Creat Clear Calc 58.5 Estimated GFR > 60 Random Glucose 95 (60-115) mg/dL Calcium 9.0 (8.4-10.2) mg/dL Total Bilirubin 0.6 (0.0-1.0) mg/dL AST 29 D (5-31) U/L ALT 27 (0-31) U/L Alkaline Phosphatase 58 D (39-117) U/L Total Protein 6.8 (6.5-8.0) g/dL Albumin 4.0 (3.5-5.0) g/dL COVID-19 ([facility]) (Negative) COVID-19 Clin Com Influenza Type A ([facility]) Negative (Negative) Influenza Type B ([facility]) Negative (Negative) Influenza A & B Note See Note 05/26/22 05/26/22 Range/Units 06:24 11:35 WBC (4.8-10.8) X10*3/uL RBC (4.20-5.50) X10*6/uL Hgb (12.0-16.0) g/dl Hct (37.0-47.0) % MCV (80.0-98.0) fL MCH (27.0-33.0) pg MCHC (31.0-35.0) g/dl RDW (11.0-16.0) % Plt Count (160-400) X10*3/uL MPV (9.4-12.3) fL Immature Gran % (Auto) (0.0-0.4) % Neut % (Auto) (45-73) % Lymph % (Auto) (20-40) % [place] % (Auto) (2-11) % Eos % (Auto) (0-4) % Baso % (Auto) (0-2) % Lymph # (Auto) (1.2-4.9) X10*3/uL [place] # (Auto) (0.1-1.2) X10*3/uL Eos # (Auto) (0.0-0.4) X10*3/uL Baso # (Auto) (0.0-0.2) X10*3/uL Abs Immat Gran (auto) (0.00-0.03) X10*3/uL Absolute Neuts (auto) (2.0-8.3) x10*3/uL Absolute Nucleated RBC (0.0-0.012) X10*3/uL Nucleated RBC % (auto) (0.0-0.2) /100WBC Smear Tech's Comments Smear Path Review Sodium 128 L (135-145) mmol/L Potassium 4.1 (3.3-5.1) mmol/L Chloride 98 (96-108) mmol/L Carbon Dioxide 17 L (22-29) mmol/L Anion Gap 17 (12-20) BUN 10 (9-16) mg/dL Creatinine 0.76 (0.5-1.4) mg/dL Estim Creat Clear Calc 67.0 Estimated GFR > 60 Random Glucose 105 (60-115) mg/dL Calcium 7.9 L D (8.4-10.2) mg/dL Total Bilirubin (0.0-1.0) mg/dL AST (5-31) U/L ALT (0-31) U/L Alkaline Phosphatase (39-117) U/L Total Protein (6.5-8.0) g/dL Albumin (3.5-5.0) g/dL COVID-19 ([facility]) Positive A (Negative) COVID-19 Clin Com See Note Influenza Type A ([facility]) (Negative) Influenza Type B ([facility]) (Negative) Influenza A & B Note Discharge Plan Discharge Clinical Impression: Adrenal insufficiency, COVID-19 virus infection, Acute hyponatremia Patient Disposition: Admitted As Inpatient
[2022-05-26 07:20] VITALS: BP 164/88; PULSE 62; RESP 20; TEMP 36.9; O2SAT 97
[2022-05-26] MEDS: Hydrocortisone Sod Succ/PF 100 MG VIAL IVPUSH (08:36)
[2022-05-26] MEDS: ondansetron HCL 4 MG/2 ML VIAL IVPUSH (08:36)
[2022-05-26] MEDS: 0.9 % Sodium Chloride 1,000 ML 999 ML IV (08:56)
--- NOTE | 2022-05-26 09:00 | PC.NURSE ---
patient a/ox4 . karishmala . heart rate regular at 68 beats per minute . lungs clear throughout . skin pink warm and dry . abdomen soft . positive bowel sounds throughout . patient reports vomiting since yesterday . IV placed in left A.C . medicated as ordered with zofran and Solu-Cortef . and given IV fluids as ordered . patient aware of plan of care .
[2022-05-26 11:39] VITALS: BP 155/70; PULSE 68; TEMP 36.7; O2SAT 98
[2022-05-26 12:01] LABS: Anion Gap 17 (12-20); Blood Urea Nitrogen 10 mg/dL (9-16); Calcium 7.9 mg/dL (8.4-10.2); Carbon Dioxide 17 mmol/L (22-29); Chloride 98 mmol/L (96-108); Estimated Glomerular Filt Rate > 60; Glucose Random 105 mg/dL (60-115); Potassium 4.1 mmol/L (3.3-5.1); Sodium 128 mmol/L (135-145)
[2022-05-26 12:51] VITALS: BP 136/69; PULSE 72; RESP 20; TEMP 36.8; O2SAT 96
--- NOTE | 2022-05-26 14:23 | PM.IMHP ---
History of Present Illness Date of Service: 05/26/22 Chief Complaint: Vomiting 58-year-old female with past medical history of adrenal insufficiency presented to the emergency room complaining of nausea and vomiting over the last 24 hours. She states she has been unable to take her usual dose of hydrocortisone. She states in the past, she would wait and by the time she came in her sodium would be 115-118. At this time she has received 100 mg of hydrocortisone IV x1. She is hemodynamically stable. She will be admitted IV volume repletion and labs to be checked in a.m.. Review of Systems Review of Systems: Denies chest pain Denies shortness of breath Denies fever chills [facility] Medical History Adrenal cortex insufficiency Adrenal insufficiency Annual physical exam Hepatitis B Hepatitis B Hyperlipidemia Hypothyroidism Osteoporosis Panhypopituitarism Pituitary microadenoma Shoulder pain Tick bite Tinnitus Vitamin D deficiency Family History Father No problems noted. Mother No problems noted. Brother Hyperparathyroidism Sister Osteoporosis Surgical History History of carpal tunnel surgery Social History Housing: House Alcohol intake: former Patient Tobacco Use Status: Former Tobacco user Cigarette Packs Per Day: 1 Years Smoked: 25 Smoked in Last 30 Days: No e-Cigarette/Vaping Use: Never Used Advance Directives: No Advance Directives Information Provided: No Current occupational status: employed and retired Cognitive needs: No Hearing needs: No Vision needs: Yes Meds Allergies Allergy/AdvReac Type Severity Reaction Status Date / Time No Known Allergies Allergy Verified 02/13/22 08:21 [No Known Allergies*] Active Medications: Current Medications Acetaminophen (Acetaminophen 325 Mg Tablet) 650 mg PO Q6H PRN PRN Reason: Pain, Mild (Pain Scale 1-3) Sodium Chloride (Ns) 1,000 mls @ 100 mls/hr IVCONT .Q10H TRINA Ondansetron HCl (Ondansetron Hcl 4 Mg/2 Ml Vial) 4 mg IVPUSH Q6H PRN PRN Reason: Nausea and Vomiting Pharmacy Consult (Consult Rx Perform Med Rec) 1 each MISCELLANE ONCE PRN PRN Reason: Consult order Sodium Chloride (0.9 % Sodium Chloride Flush 3 Ml Syringe) 3 ml IVFLUSH QSHIFT TRINA Physical Exam Vital Signs and Narrative: Vital Signs: Last Vital Signs Temp 98.3 F 05/26/22 12:51 Pulse 72 05/26/22 12:51 Resp 20 05/26/22 12:51 BP 136/69 05/26/22 12:51 Pulse Ox 96 05/26/22 12:51 O2 Del Method 05/26/22 12:51 BMI result Body Mass Index 27.8 Const: Other: Awake alert no acute distress HEENT: Other: Membranes moist Resp: Other: Clear to auscultation bilaterally no rales rhonchi wheezes Cardio: Other: No S4; positive S1-S2; no S3 murmurs rubs gallops GI: Other: Soft nontender nondistended normoactive bowel sounds Neuro: Other: Cranial nerves 2-12 grossly intact as tested. Motor is 5/5 all extremities. Sensation is intact. Cognition appropriate Extrem: Other: No edema bilaterally Results Labs CBC and Chem 7: 05/26/22 06:24 05/26/22 11:35 Labs: Laboratory Results - last 24 hr 05/26/22 05/26/22 05/26/22 06:24 06:24 06:24 MCV 83.7 MCH 27.7 MCHC 33.1 RDW 12.2 Plt Count 147 L D MPV 11.2 Immature Gran % (Auto) 0.0 Neut % (Auto) 23.7 L Lymph % (Auto) 59.6 H [place] % (Auto) 14.6 H Eos % (Auto) 2.1 Baso % (Auto) 0.0 Lymph # (Auto) 1.4 [place] # (Auto) 0.4 Eos # (Auto) 0.1 Baso # (Auto) 0.0 Abs Immat Gran (auto) 0.00 Absolute Neuts (auto) 0.6 L Absolute Nucleated RBC 0.000 Nucleated RBC % (auto) 0.0 Smear Tech's Comments VERIFIED Smear Path Review SEE NOTE Anion Gap 14 Estim Creat Clear Calc 58.5 Estimated GFR > 60 Random Glucose 95 Calcium 9.0 Total Bilirubin 0.6 AST 29 D ALT 27 Alkaline Phosphatase 58 D Total Protein 6.8 Albumin 4.0 COVID-19 ([facility]) COVID-19 Clin Com Influenza Type A ([facility]) Negative Influenza Type B ([facility]) Negative Influenza A & B Note See Note 05/26/22 05/26/22 06:24 11:35 MCV MCH MCHC RDW Plt Count MPV Immature Gran % (Auto) Neut % (Auto) Lymph % (Auto) [place] % (Auto) Eos % (Auto) Baso % (Auto) Lymph # (Auto) [place] # (Auto) Eos # (Auto) Baso # (Auto) Abs Immat Gran (auto) Absolute Neuts (auto) Absolute Nucleated RBC Nucleated RBC % (auto) Smear Tech's Comments Smear Path Review Anion Gap 17 Estim Creat Clear Calc 67.0 Estimated GFR > 60 Random Glucose 105 Calcium 7.9 L D Total Bilirubin AST ALT Alkaline Phosphatase Total Protein Albumin COVID-19 ([facility]) Positive A COVID-19 Clin Com See Note Influenza Type A ([facility]AYNE) Influenza Type B (SHAYNE) Influenza A & B Note Assessment and Plan (1) COVID-19 virus infection: Status: Acute (2) Adrenal insufficiency: Status: Acute (3) Nausea & vomiting: Status: Acute (4) Hypothyroidism: Qualifiers: 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 She was diagnosed COVID-19 positive 5 days ago and had mild cold symptoms without fever chills. She is hemodynamically stable her sodium was 132 1. COVID-19 infection with nausea vomiting -admit to isolation room -gentle IV volume repletion -no O2 requirement.. . No steroids indicated 2. Adrenal insufficiency -received 100 mg of IV hydrocortisone today. No further dosing -will dose in a.m. with 1:1 conversion of oral to IV hydrocortisone 3. Hyponatremia (mild) -check serum/urine osmoles along with spot urine for sodium -gentle volume repletion -follow renals/diavakents 4. Hypothyroidism -continue outpatient supplements Full code Lovenox Patient will require at least 2 midnights of inpatient stay to adequately continue IV hydrocortisone in the backdrop of nausea and vomiting Quality Stroke Does the patient have a stroke diagnosis?: No VTE Prior VTE?: No VTE Risk Level:: Medical - moderate - high VTE Device Contraindication: Treatment Not Indicated VTE Drug Contraindication: N/A - Med Ordered
--- NOTE | 2022-05-26 14:51 | PHA.MEDREC ---
Pharmacy Consult ? Medication Reconciliation Pharmacy has completed the medication reconciliation. Patient reported all medications. Jody Nolan, LuizD
[2022-05-26] MEDS: 0.9 % Sodium Chloride 1,000 ML 100 ML IVCONT (15:44)
[2022-05-26] MEDS: 0.9 % Sodium Chloride Flush 3 ML SYRINGE IVFLUSH ×2 (15:44→19:38)
[2022-05-26 15:49] VITALS: BP 120/58; PULSE 61; RESP 16; TEMP 36.8; O2SAT 96
[2022-05-26 16:20] LABS: Osmolality, Serum 266 mosm/kg (281-305)
--- NOTE | 2022-05-26 17:56 | PC.NURSE ---
Report given to Alejo DIEGO . patient aware of transfer to floor . patient aware of plan of care .
[2022-05-26 19:28] VITALS: BMI 28.5
[2022-05-26 19:42] VITALS: BP 131/78; PULSE 78; RESP 16; TEMP 36.1; O2SAT 96
[2022-05-26] MEDS: Atorvastatin Calcium 40 MG TABLET PO (20:58)
[2022-05-26] MEDS: guaiFENesin 100 MG/5 ML LIQUID PO (20:58)
[2022-05-26 22:14] LABS: Sodium Urine Random < 20.0 mmol/L
[2022-05-26 22:38] LABS: Osmolality Urine 172 mosm/kg (373-1093)
[2022-05-27] VITALS: BP 139/63; PULSE 72; RESP 19; TEMP 37.1; O2SAT 96
[2022-05-27 04:00] VITALS: BP 140/78; PULSE 87; RESP 18; TEMP 37.1; O2SAT 97
[2022-05-27] MEDS: 0.9 % Sodium Chloride 1,000 ML 100 ML IVCONT (04:59)
[2022-05-27] MEDS: guaiFENesin 100 MG/5 ML LIQUID PO (05:56)
[2022-05-27] MEDS: Levothyroxine Sodium 100 MCG TABLET PO (05:56)
[2022-05-27 06:52] LABS: Basophils Percent Auto 0.4 % (0-2); Eosinophils Percent Auto 0.7 % (0-4); Hematocrit 35.7 % (37.0-47.0); Hemoglobin 11.3 g/dl (12.0-16.0); Imm Gran Abs Auto 0.01 X10*3/uL (0.00-0.03); Imm Gran Pct Auto 0.4 % (0.0-0.4); Lymphocytes Absolute Auto 1.6 X10*3/uL (1.2-4.9); Lymphocytes Percent Auto 54.4 % (20-40); MANUAL DIFF FLAG SCAN; Mean Corpuscular HGB Conc 31.7 g/dl (31.0-35.0); Mean Corpuscular Hemoglobin 27.4 pg (27.0-33.0); Mean Corpuscular Volume 86.4 fL (80.0-98.0); Mean Platelet Volume 11.6 fL (9.4-12.3); Monocytes Absolute Auto 0.4 X10*3/uL (0.1-1.2); Neutrophils Absolute Auto 0.9 x10*3/uL (2.0-8.3); Neutrophils Percent Auto 30.1 % (45-73); Platelet Count 136 X10*3/uL (160-400); Red Blood Count 4.13 X10*6/uL (4.20-5.50); Red Cell Distribution Width 12.5 % (11.0-16.0); SCAN SMEAR FLAG 1; White Blood Count 2.9 X10*3/uL (4.8-10.8)
[2022-05-27 07:29] LABS: Alanine Aminotransferase 21 U/L (0-31); Albumin Level 3.3 g/dL (3.5-5.0); Alkaline Phosphatase 46 U/L (39-117); Anion Gap 13 (12-20); Aspartate Amino Transferase 21 U/L (5-31); Bilirubin Total 0.3 mg/dL (0.0-1.0); Blood Urea Nitrogen 12 mg/dL (9-16); Calcium 8.3 mg/dL (8.4-10.2); Carbon Dioxide 23 mmol/L (22-29); Chloride 107 mmol/L (96-108); Creatinine Clr Calc Pharmacy 67.8; Estimated Glomerular Filt Rate > 60; Glucose Fasting 86 mg/dL (60-99); Potassium 4.4 mmol/L (3.3-5.1); Sodium 139 mmol/L (135-145); Total Protein 5.8 g/dL (6.5-8.0)
[2022-05-27 08:00] VITALS: BP 119/71; PULSE 70; RESP 18; TEMP 36.7; O2SAT 96
[2022-05-27 08:10] LABS: SLIDE REVIEW VERIFIED
[2022-05-27 11:59] VITALS: BP 122/63; PULSE 63; RESP 16; TEMP 36.8; O2SAT 96
--- NOTE | 2022-05-27 12:46 | PM.DS ---
DS: Providers Provider Date of Service: 05/27/22 Date of admission: 05/26/22 14:01 Date of discharge: 05/27/22 Primary care physician: Kika Miner MD DS: Diagnosis Discharge Diagnosis (1) COVID-19 virus infection: Status: Acute (2) Adrenal insufficiency: Status: Acute (3) Nausea & vomiting: Status: Acute (4) Hypothyroidism: Status: Acute DS: Summary Hospital Course Hospital Course: 58-year-old female with past medical history of adrenal insufficiency presented to the emergency room complaining of nausea and vomiting over the last 24 hours.? She states she has been unable to take her usual dose of hydrocortisone.? She states in the past, she would wait and by the time she came in her sodium would be 115-118.? At this time she has received 100 mg of hydrocortisone IV x1.? She is hemodynamically stable.? She will be admitted IV volume repletion and labs to be checked in a.m.. Hospital course Patient admitted to [facility] floor overnight. No acute issues. No further vomiting; hemodynamically stable. At this point she is medically acceptable for discharge to home to resume normal medical regimen Time Spent with Patient Time attestation: Total time spent providing and/or coordinating discharge services: Discharge coordination time: Greater than 30 minutes Quality: Safe Use of Opioids Does Pt have an Active Cancer Diagnosis on the Problem List?: No Quality: Stroke Does the patient have a stroke diagnosis?: No Physical Exam Vital Signs: Vital Signs: Last Vital Signs Temp 98.3 F 05/27/22 11:59 Pulse 63 05/27/22 11:59 Resp 16 05/27/22 11:59 BP 122/63 05/27/22 11:59 Pulse Ox 96 05/27/22 11:59 O2 Del Method 05/27/22 11:59 BMI result Body Mass Index 28.5 Const: Other: Awake alert no acute distress HEENT: Other: Membranes moist Resp: Other: Clear to auscultation bilaterally no rales rhonchi wheezes Cardio: Other: No S4; positive S1-S2; no S3 murmurs rubs gallops GI: Other: Soft nontender nondistended normoactive bowel sounds Neuro: Other: Cranial nerves 2-12 grossly intact as tested. Motor is 5/5 all extremities. Sensation is intact. Cognition appropriate Extrem: Other: No edema bilaterally DS: Data Data Completed and Pending Labs on day of discharge: Laboratory Results - last 24 hr 05/26/22 05/26/22 05/26/22 11:35 21:35 21:35 WBC RBC Hgb Hct MCV MCH MCHC RDW Plt Count MPV Immature Gran % (Auto) Neut % (Auto) Lymph % (Auto) [place] % (Auto) Eos % (Auto) Baso % (Auto) Lymph # (Auto) [place] # (Auto) Eos # (Auto) Baso # (Auto) Abs Immat Gran (auto) Absolute Neuts (auto) Absolute Nucleated RBC Nucleated RBC % (auto) Smear Tech's Comments Sodium Potassium Chloride Carbon Dioxide Anion Gap BUN Creatinine Estim Creat Clear Calc Estimated GFR Fasting Glucose Osmolality 266 L Calcium Total Bilirubin AST ALT Alkaline Phosphatase Total Protein Albumin Urine Osmolality 172 L Ur Random Sodium < 20.0 05/27/22 05/27/22 06:16 06:16 WBC 2.9 L RBC 4.13 L Hgb 11.3 L Hct 35.7 L MCV 86.4 MCH 27.4 MCHC 31.7 RDW 12.5 Plt Count 136 L MPV 11.6 Immature Gran % (Auto) 0.4 Neut % (Auto) 30.1 L Lymph % (Auto) 54.4 H [place] % (Auto) 14.0 H Eos % (Auto) 0.7 Baso % (Auto) 0.4 Lymph # (Auto) 1.6 [place] # (Auto) 0.4 Eos # (Auto) 0.0 Baso # (Auto) 0.0 Abs Immat Gran (auto) 0.01 Absolute Neuts (auto) 0.9 L Absolute Nucleated RBC 0.000 Nucleated RBC % (auto) 0.0 Smear Tech's Comments VERIFIED Sodium 139 Potassium 4.4 Chloride 107 Carbon Dioxide 23 Anion Gap 13 BUN 12 Creatinine 0.76 Estim Creat Clear Calc 67.8 Estimated GFR > 60 Fasting Glucose 86 Osmolality Calcium 8.3 L Total Bilirubin 0.3 AST 21 ALT 21 Alkaline Phosphatase 46 D Total Protein 5.8 L Albumin 3.3 L Urine Osmolality Ur Random Sodium Discharge Plan Discharge Anticipated Discharge Date/Time: 05/27/22 12:50 Patient Disposition: Home, Self-Care Discharge Diagnosis: COVID-19 with nausea and vomiting Referrals: Kika Miner MD [Primary Care Provider] - 1 Week Discharge Medications: Continued levothyroxine 100 mcg tablet 100 mcg PO DAILY 90 Days Qty: 90 2RF atorvastatin [Lipitor] 40 mg tablet 40 mg PO DAILY Qty: 90 3RF hydrocortisone 5 mg tablet 5 mg PO TID Solu-Cortef Act-O-Vial (PF) 100 mg/2 mL recon soln 100 mg IM ONCE PRN (Reason: Unable to tolerate PO) 30 Days Qty: 1 3RF Discharge Orders: Discharge Order (Routine); Ordered 05/27/22 Ordered By: Gianfranco Carmona Diet: Advance to usual diet Activity on Discharge: As tolerated Stand Alone Forms: Patient Portal Discharge page Care Plan Goals: Resume all pre-hospital medications and dosing Health Concerns: Utilize Zofran for nausea. Return if you cannot keep down your hydrocortisone Plan of Treatment: Follow-up with endocrinology as scheduled and PCP same Assessment: See care plan
--- NOTE | 2022-05-27 13:01 | MHC.CM.PN ---
order for home, self care. CM acknowledge.
== END 2022-05-27 14:22 | disposition home or self-care (01) | DRG 178 ==
LOC: HO.ED 14:35 → HO.EDOVER 15:07 → HO.IMC 17:18
PROVIDERS: Physician Assistant Medical; Admitting Provider Hospitalist; Emergency Provider Emergency Medicine; PCP Internal Medicine; Visit Provider Hospitalist
DX: U07.1 COVID-19 (principal); E27.40 Unspecified adrenocortical insufficiency; E87.1 Hypo-osmolality and hyponatremia; E03.9 Hypothyroidism, unspecified; Z91.14 Patient's other noncompliance with medication regimen; Z79.52 Long term (current) use of systemic steroids; Z79.890 Hormone replacement therapy; Z79.899 Other long term (current) drug therapy
CPT/HCPCS: 36415; 80048; 80053; 83930; 83935; 84300; 85025; 87502; 87635; 99285; J2405

== ENCOUNTER 2022-06-01 10:29 | Outpatient (REF) | payer MEDICARE, SELFPAY ==
[2022-06-01 13:49] LABS: MANUAL DIFF FLAG NO
[2022-06-01 13:55] LABS: Basophils Percent Auto 0.4 % (0-2); Eosinophils Absolute Auto 0.1 X10*3/uL (0.0-0.4); Eosinophils Percent Auto 2.5 % (0-4); Hematocrit 41.7 % (37.0-47.0); Hemoglobin 13.2 g/dl (12.0-16.0); Imm Gran Abs Auto 0.03 X10*3/uL (0.00-0.03); Imm Gran Pct Auto 0.6 % (0.0-0.4); Lymphocytes Absolute Auto 1.6 X10*3/uL (1.2-4.9); Lymphocytes Percent Auto 32.4 % (20-40); Mean Corpuscular HGB Conc 31.7 g/dl (31.0-35.0); Mean Corpuscular Hemoglobin 27.9 pg (27.0-33.0); Mean Corpuscular Volume 88.2 fL (80.0-98.0); Mean Platelet Volume 12.5 fL (9.4-12.3); Monocytes Absolute Auto 0.5 X10*3/uL (0.1-1.2); Monocytes Percent Auto 10.5 % (2-11); Neutrophils Absolute Auto 2.6 x10*3/uL (2.0-8.3); Neutrophils Percent Auto 53.6 % (45-73); Platelet Count 275 X10*3/uL (160-400); Red Blood Count 4.73 X10*6/uL (4.20-5.50); Red Cell Distribution Width 12.6 % (11.0-16.0); White Blood Count 4.9 X10*3/uL (4.8-10.8)
[2022-06-01 14:03] LABS: Cholesterol 181 mg/dL; HDL Cholesterol 58 mg/dL; LDL Cholesterol Calculated 105 mg/dl; Triglycerides 91 mg/dL
[2022-06-01 14:12] LABS: Alanine Aminotransferase 21 U/L (0-31); Albumin Level 4.3 g/dL (3.5-5.0); Alkaline Phosphatase 54 U/L (39-117); Anion Gap 13 (12-20); Aspartate Amino Transferase 23 U/L (5-31); Bilirubin Total 0.5 mg/dL (0.0-1.0); Blood Urea Nitrogen 13 mg/dL (9-16); Calcium 9.5 mg/dL (8.4-10.2); Carbon Dioxide 27 mmol/L (22-29); Chloride 104 mmol/L (96-108); Cholesterol 183 mg/dL; Estimated Glomerular Filt Rate 56; Glucose Fasting 94 mg/dL (60-99); HDL Cholesterol 58 mg/dL; LDL Cholesterol Calculated 107 mg/dl; Potassium 4.6 mmol/L (3.3-5.1); Sodium 139 mmol/L (135-145); Total Protein 7.2 g/dL (6.5-8.0); Triglycerides 93 mg/dL
[2022-06-01 14:26] LABS: TSH reflex Free T4 1.68 uIU/mL (0.32-4.0)
[2022-06-01 14:33] LABS: TSH reflex Free T4 1.65 uIU/mL (0.32-4.0)
== END 2022-06-01 10:30 | disposition home or self-care (01) ==
LOC: HO.HMGCLDS 10:29
PROVIDERS: PCP Internal Medicine; Visit Provider Internal Medicine
DX: Z00.00 Encounter for general adult medical examination without abnormal findings (principal); E03.8 Other specified hypothyroidism; E06.3 Autoimmune thyroiditis; E27.40 Unspecified adrenocortical insufficiency; E78.5 Hyperlipidemia, unspecified
CPT/HCPCS: 36415; 80053; 80061; 84443; 85025

== ENCOUNTER 2022-07-12 14:07 | Inpatient (IN) | payer MEDICARE, SELFPAY ==
--- NOTE | ~2022-07-12 | XR_ITS ---
EXAMINATION: XR CHEST CLINICAL INFORMATION: Cough COMPARISON: Previous chest x-ray January 2019 TECHNIQUE: Frontal view of the chest was obtained. FINDINGS: No significant abnormality is noted involving the heart, lungs, mediastinum, bony thorax or soft tissues. XR/XR chest 1V IMPRESSION: Unremarkable examination.
[2022-07-12 14:37] VITALS: BP 99/57; PULSE 81; RESP 16; TEMP 36.9; O2SAT 95; BMI 27.4
--- NOTE | 2022-07-12 14:37 | ED_ITS ---
HPI - General Adult General Chief complaint: Weakness <FRANK Nicole - Last Filed: 07/12/22 14:43> Stated complaint: Adrenal Insuffiency, Adrenal crisis <FRANK Nicole - Last Filed: 07/12/22 14:43> Time Seen by Provider: 07/12/22 17:28 <FRANK Nicole - Last Filed: 07/12/22 14:43> Source: patient <Mayda Cain MD - Last Filed: 07/12/22 18:36> Mode of arrival: ambulatory <Mayda Cain MD - Last Filed: 07/12/22 18:36> Limitations: no limitations <Mayda Cain MD - Last Filed: 07/12/22 18:36> History of Present Illness HPI narrative: Patient comes to the emergency room complaining of 2-3 days of nausea, no vomiting or diarrhea, complaining feeling unable to eat because of the nausea, very weak, still able to stand up but with significant difficulty due to weakness. Patient is any chest pain or abdominal pain. <Mayda Cain MD - Last Filed: 07/12/22 18:36> Related Data Home medications: Home Medications Medication Instructions Recorded Confirmed hydrocortisone 5 mg tablet 5 mg PO TID 05/26/22 06/01/22 Previous Rx's Medication Instructions Recorded atorvastatin 40 mg tablet (Lipitor) 40 mg PO DAILY #90 tabs 09/05/21 hydrocortisone sod succ (PF) 100 100 mg (2 mL) IM ONCE PRN Unable 02/13/22 mg/2 mL solution for injection to tolerate PO 30 days #1 ea (Solu-Cortef Act-O-Vial (PF)) levothyroxine 100 mcg tablet 100 mcg PO DAILY 90 days #90 tabs 06/05/22 <FRANK Nicole - Last Filed: 07/12/22 14:43> Allergies/adverse reactions: Allergies Allergy/AdvReac Type Severity Reaction Status Date / Time No Known Allergies Allergy Verified 07/12/22 14:40 [No Known Allergies*] <FRANK Nicole - Last Filed: 07/12/22 14:43> Review of Systems Review of Systems: Constitutional : No Weight loss, No Fever, No Chills, No Night Sweats, complaining of fatigue and generalized malaise and significant weakness ENT/Mouth : No Hearing loss, No Ear Pain, No Nasal Congestion, No Sinus Pain, No Hoarseness, No sore throat, No Rhinorrhea, No Swallowing Difficulty Eyes: No Eye Pain, No Swelling, No Redness, No Foreign Body, No Discharge, No Vision Changes Cardiovascular : No Chest Pain, No SOB, No Dyspnea on Exertion, No Orthopnea, No Edema, No Palpitations Respiratory : No Cough, No Sputum, No Wheezing, No Smoke Exposure, No Dyspnea Gastrointestinal : Complaining of Nausea, No Vomiting, No Diarrhea, No Constipation, No abdominal Pain, No Hematochezia, No Melena Genitourinary : no irregular bleeding, No Dysuria, No Urinary Frequency, No Hematuria, No Urinary Incontinence, No Urgency, No Flank Pain, No Urinary Flow Changes, No Hesitancy Musculoskeletal : No joint pain, No Myalgias, No Joint Swelling Skin : No Skin Lesions, No rash Neuro : No Weakness, No Numbness, No Paresthesias, No Loss of Consciousness, No Dizziness, No Headache Psych : No Anxiety/Panic, No Depression, No SI/HI/AH/VH, No Social Issues, Heme/Lymph: No Bruising, No Bleeding,No Lymphadenopathy Endocrine : No Polyuria, No Polydipsia, No Temperature Intolerance <Mayda Cain MD - Last Filed: 07/12/22 18:36> [facility] Past Medical History Medical History: Medical History Adrenal cortex insufficiency Adrenal insufficiency Annual physical exam Hepatitis B Hepatitis B Hyperlipidemia Hypothyroidism Osteoporosis Panhypopituitarism Pituitary microadenoma Shoulder pain Tick bite Tinnitus Vitamin D deficiency <FRANK Nicole - Last Filed: 07/12/22 14:43> Surgical History: Surgical History History of carpal tunnel surgery <FRANK Nicole - Last Filed: 07/12/22 14:43> Family History Family History: Family History Father No problems noted. Mother No problems noted. Brother Hyperparathyroidism Sister Osteoporosis <FRANK Nicole - Last Filed: 07/12/22 14:43> Social History Social History: Social History Household Members: Spouse Housing: House Do you presently have visiting nurse or other home services: No Alcohol intake: former Patient Tobacco Use Status: Former Tobacco user Cigarette Packs Per Day: 1 Years Smoked: 25 e-Cigarette/Vaping Use: Never Used Substance Use Type: Marijuana Advance Directives: No Advance Directives Information Provided: No Current occupational status: employed and retired Cognitive needs: No Hearing needs: No Vision needs: Yes <FRANK Nicole - Last Filed: 07/12/22 14:43> Physical Exam ED Vital Signs: Vital Signs - 24 hr 07/12/22 14:37 Temperature 98.5 F Pulse Rate 81 Respiratory Rate 16 Blood Pressure 99/57 L Pulse Oximetry 95 Oxygen Delivery Method Room Air BMI result Body Mass Index 27.4 <FRANK Nicole - Last Filed: 07/12/22 14:43> Vital Signs - 24 hr 07/12/22 14:37 Temperature 98.5 F Pulse Rate 81 Respiratory Rate 16 Blood Pressure 99/57 L Pulse Oximetry 95 Oxygen Delivery Method Room Air BMI result Body Mass Index 27.4 <Mayda Cain MD - Last Filed: 07/12/22 18:36> Const Other: Appearance: Alert. Oriented X3. No acute distress. Difficulty sitting up due to weakness Eyes: Pupils equal, round and reactive to light. ENT: Pharynx normal. Neck: Normal inspection. Neck supple. No lymph nodes noted. No crepitus CVS: Normal heart rate and rhythm. Pulses normal. Normal S1 and S2 Respiratory: No respiratory distress. Breath sounds normal. No Wheezing. No ra les Abdomen: Soft and nontender. No rigidity. No distention. Skin: Skin warm and dry. Normal skin color. Normal skin turgor. Extremities: No lower extremity edema. No Lacerations. No Rash Neuro: Oriented X 3. No motor deficit. No sensory deficit. Moving all extremities. No slurred speech. CN 2 through 12 grossly intact Psych: calm, cooperative, normal affect <Mayda Cain MD - Last Filed: 07/12/22 18:36> Course Course Course Narrative: 14: 37 - RME - 67 yo female with history of panhypopitutarism, HLD, hypothyroidism, adrenal insufficiency who presents to the ER with decreased PO intake for the last 2 days, nausea, confusion, brain fog, and unsteadiness on her feet. New fever of 101.8 today, got tylenol. Slight cough and sore throat. A dmitted last month for adrenal crisis. BP soft 90/50s. Afebrile after tylenol. Will check labs, CXR, EKG, viral swabs, and start IVF and solucortef given low BP. <FRANK Nicole - Last Filed: 07/12/22 14:43> 14: 37 - RME - 67 yo female with history of panhypopitutarism, HLD, hypothyroidism, adrenal insufficiency who presents to the ER with decreased PO intake for the last 2 days, nausea, confusion, brain fog, and unsteadiness on her feet. New fever of 101.8 today, got tylenol. Slight cough and sore throat. Admitted last month for adrenal crisis. BP soft 90/50s. Afebrile after tylenol. Will check labs, CXR, EKG, viral swabs, and start IVF and solucortef given low BP. I discussed with the patient that her sodium is on the lower side, 130, also, patient tested positive for influenza and COVID I discussed the patient with Dr. English, pt being admitted <Mayda Cain MD - Last Filed: 07/12/22 18:36> Medications Administered Discontinued Medications Generic Name Dose Route Start Last Admin Trade Name Freq PRN Reason Stop Dose Admin Hydrocortisone Sodium Succinate 100 mg 07/12/22 14:41 07/12/22 16:59 Hydrocortisone Sod Succ/Pf 100 Mg Vial IVPUSH 07/12/22 14:42 100 mg ONCE ONE Administration Hydrocortisone Sodium Succinate 100 mg 07/12/22 17:38 07/12/22 17:51 Hydrocortisone Sod Succ/Pf 100 Mg Vial IVPUSH 07/12/22 17:39 Not Given ONCE ONE Lactated Ringer's 1,000 mls @ 999 mls/hr 07/12/22 14:45 07/12/22 17:00 Lr IV 07/12/22 15:45 999 mls/hr .Q1H1M TRINA Administration <FRANK Nicole - Last Filed: 07/12/22 14:43> Medications Administered Discontinued Medications Generic Name Dose Route Start Last Admin Trade Name Freq PRN Reason Stop Dose Admin Hydrocortisone Sodium Succinate 100 mg 07/12/22 14:41 07/12/22 16:59 Hydrocortisone Sod Succ/Pf 100 Mg Vial IVPUSH 07/12/22 14:42 100 mg ONCE ONE Administration Hydrocortisone Sodium Succinate 100 mg 07/12/22 17:38 07/12/22 17:51 Hydrocortisone Sod Succ/Pf 100 Mg Vial IVPUSH 07/12/22 17:39 Not Given ONCE ONE Lactated Ringer's 1,000 mls @ 999 mls/hr 07/12/22 14:45 07/12/22 17:00 Lr IV 07/12/22 15:45 999 mls/hr .Q1H1M TRINA Administration <Mayda Cain MD - Last Filed: 07/12/22 18:36> Medical Decision Making Differential Diagnosis Differential Diagnoses: The differential diagnosis associated with the presentation includes (Influenza, COVID, UTI, adrenal insufficiency) <Mayda Cain MD - Last Filed: 07/12/22 18:36> Admission/Observation Consideration of admission/observation: Escalation of care including admission/observation considered (Patient has history of adrenal insufficiency, has influenza and COVID. Patient is too weak to stand up and walk by herself) <Mayda Cain MD - Last Filed: 07/12/22 18:36> Consult Healthcare Provider Management of the patient was discussed with: Hospitalist (Discussed the patient with Dr. English, patient being admitted) <Mayda Cain MD - Last Filed: 07/12/22 18:36> Lab Data MDM Lab Attestation statement: I reviewed the patient's lab results. <Mayda Cain MD - Last Filed: 07/12/22 18:36> Result Diagrams: : 07/12/22 15:46 07/12/22 15:46 <FRANK Nicole - Last Filed: 07/12/22 14:43> Labs: Lab Results 07/12/22 07/12/22 07/12/22 Range/Units 15:46 15:46 15:46 WBC 5.4 (4.8-10.8) X10*3/uL RBC 4.27 (4.20-5.50) X10*6/uL Hgb 11.9 L (12.0-16.0) g/dl Hct 37.0 (37.0-47.0) % MCV 86.7 (80.0-98.0) fL MCH 27.9 (27.0-33.0) pg MCHC 32.2 (31.0-35.0) g/dl RDW 13.2 (11.0-16.0) % Plt Count 153 L D (160-400) X10*3/uL MPV 12.1 (9.4-12.3) fL Immature Gran % (Auto) 0.4 (0.0-0.4) % Neut % (Auto) 66.4 (45-73) % Lymph % (Auto) 15.3 L (20-40) % [place] % (Auto) 17.1 H (2-11) % Eos % (Auto) 0.2 (0-4) % Baso % (Auto) 0.6 (0-2) % Lymph # (Auto) 0.8 L (1.2-4.9) X10*3/uL [place] # (Auto) 0.9 (0.1-1.2) X10*3/uL Eos # (Auto) 0.0 (0.0-0.4) X10*3/uL Baso # (Auto) 0.0 (0.0-0.2) X10*3/uL Abs Immat Gran (auto) 0.02 (0.00-0.03) X10*3/uL Absolute Neuts (auto) 3.6 (2.0-8.3) x10*3/uL Absolute Nucleated RBC 0.000 (0.0-0.012) X10*3/uL Nucleated RBC % (auto) 0.0 (0.0-0.2) /100WBC Sodium 130 L (135-145) mmol/L Potassium 4.6 (3.3-5.1) mmol/L Chloride 96 (96-108) mmol/L Carbon Dioxide 25 (22-29) mmol/L Anion Gap 14 (12-20) BUN 16 (9-16) mg/dL Creatinine 1.29 (0.5-1.4) mg/dL Estim Creat Clear Calc 38.7 Estimated GFR 41 Random Glucose 102 (60-115) mg/dL Lactic Acid 1.1 (0.5-2.0) mmol/L Calcium 8.7 D (8.4-10.2) mg/dL Magnesium 1.6 (1.6-2.6) mg/dL Total Bilirubin 0.8 (0.0-1.0) mg/dL Direct Bilirubin 0.3 (0.0-0.5) mg/dL AST 37 H (5-31) U/L ALT 38 H (0-31) U/L Alkaline Phosphatase 52 (39-117) U/L Total Protein 6.4 L (6.5-8.0) g/dL Albumin 3.8 (3.5-5.0) g/dL TSH (0.32-4.0) uIU/mL Free T4 (0.71-1.85) ng/dL Influenza Type A (PCR) (Negative) Influenza Type B (PCR) (Negative) RSV RNA Qual (PCR) (Negative) SARS-CoV-2 RNA (RT-PCR) (Negative) 07/12/22 07/12/22 Range/Units 15:46 15:46 WBC (4.8-10.8) X10*3/uL RBC (4.20-5.50) X10*6/uL Hgb (12.0-16.0) g/dl Hct (37.0-47.0) % MCV (80.0-98.0) fL MCH (27.0-33.0) pg MCHC (31.0-35.0) g/dl RDW (11.0-16.0) % Plt Count (160-400) X10*3/uL MPV (9.4-12.3) fL Immature Gran % (Auto) (0.0-0.4) % Neut % (Auto) (45-73) % Lymph % (Auto) (20-40) % [place] % (Auto) (2-11) % Eos % (Auto) (0-4) % Baso % (Auto) (0-2) % Lymph # (Auto) (1.2-4.9) X10*3/uL [place] # (Auto) (0.1-1.2) X10*3/uL Eos # (Auto) (0.0-0.4) X10*3/uL Baso # (Auto) (0.0-0.2) X10*3/uL Abs Immat Gran (auto) (0.00-0.03) X10*3/uL Absolute Neuts (auto) (2.0-8.3) x10*3/uL Absolute Nucleated RBC (0.0-0.012) X10*3/uL Nucleated RBC % (auto) (0.0-0.2) /100WBC Sodium (135-145) mmol/L Potassium (3.3-5.1) mmol/L Chloride (96-108) mmol/L Carbon Dioxide (22-29) mmol/L Anion Gap (12-20) BUN (9-16) mg/dL Creatinine (0.5-1.4) mg/dL Estim Creat Clear Calc Estimated GFR Random Glucose (60-115) mg/dL Lactic Acid (0.5-2.0) mmol/L Calcium (8.4-10.2) mg/dL Magnesium (1.6-2.6) mg/dL Total Bilirubin (0.0-1.0) mg/dL Direct Bilirubin (0.0-0.5) mg/dL AST (5-31) U/L ALT (0-31) U/L Alkaline Phosphatase (39-117) U/L Total Protein (6.5-8.0) g/dL Albumin (3.5-5.0) g/dL TSH 0.21 L (0.32-4.0) uIU/mL Free T4 1.45 (0.71-1.85) ng/dL Influenza Type A (PCR) POSITIVE A (Negative) Influenza Type B (PCR) NEGATIVE (Negative) RSV RNA Qual (PCR) NEGATIVE (Negative) SARS-CoV-2 RNA (RT-PCR) POSITIVE A (Negative) <FRANK Nicole - Last Filed: 07/12/22 14:43> Lab Results 07/12/22 07/12/22 07/12/22 Range/Units 15:46 15:46 15:46 WBC 5.4 (4.8-10.8) X10*3/uL RBC 4.27 (4.20-5.50) X10*6/uL Hgb 11.9 L (12.0-16.0) g/dl Hct 37.0 (37.0-47.0) % MCV 86.7 (80.0-98.0) fL MCH 27.9 (27.0-33.0) pg MCHC 32.2 (31.0-35.0) g/dl RDW 13.2 (11.0-16.0) % Plt Count 153 L D (160-400) X10*3/uL MPV 12.1 (9.4-12.3) fL Immature Gran % (Auto) 0.4 (0.0-0.4) % Neut % (Auto) 66.4 (45-73) % Lymph % (Auto) 15.3 L (20-40) % [place] % (Auto) 17.1 H (2-11) % Eos % (Auto) 0.2 (0-4) % Baso % (Auto) 0.6 (0-2) % Lymph # (Auto) 0.8 L (1.2-4.9) X10*3/uL [place] # (Auto) 0.9 (0.1-1.2) X10*3/uL Eos # (Auto) 0.0 (0.0-0.4) X10*3/uL Baso # (Auto) 0.0 (0.0-0.2) X10*3/uL Abs Immat Gran (auto) 0.02 (0.00-0.03) X10*3/uL Absolute Neuts (auto) 3.6 (2.0-8.3) x10*3/uL Absolute Nucleated RBC 0.000 (0.0-0.012) X10*3/uL Nucleated RBC % (auto) 0.0 (0.0-0.2) /100WBC Sodium 130 L (135-145) mmol/L Potassium 4.6 (3.3-5.1) mmol/L Chloride 96 (96-108) mmol/L Carbon Dioxide 25 (22-29) mmol/L Anion Gap 14 (12-20) BUN 16 (9-16) mg/dL Creatinine 1.29 (0.5-1.4) mg/dL Estim Creat Clear Calc 38.7 Estimated GFR 41 Random Glucose 102 (60-115) mg/dL Lactic Acid 1.1 (0.5-2.0) mmol/L Calcium 8.7 D (8.4-10.2) mg/dL Magnesium 1.6 (1.6-2.6) mg/dL Total Bilirubin 0.8 (0.0-1.0) mg/dL Direct Bilirubin 0.3 (0.0-0.5) mg/dL AST 37 H (5-31) U/L ALT 38 H (0-31) U/L Alkaline Phosphatase 52 (39-117) U/L Total Protein 6.4 L (6.5-8.0) g/dL Albumin 3.8 (3.5-5.0) g/dL TSH (0.32-4.0) uIU/mL Free T4 (0.71-1.85) ng/dL Influenza Type A (PCR) (Negative) Influenza Type B (PCR) (Negative) RSV RNA Qual (PCR) (Negative) SARS-CoV-2 RNA (RT-PCR) (Negative) 07/12/22 07/12/22 Range/Units 15:46 15:46 WBC (4.8-10.8) X10*3/uL RBC (4.20-5.50) X10*6/uL Hgb (12.0-16.0) g/dl Hct (37.0-47.0) % MCV (80.0-98.0) fL MCH (27.0-33.0) pg MCHC (31.0-35.0) g/dl RDW (11.0-16.0) % Plt Count (160-400) X10*3/uL MPV (9.4-12.3) fL Immature Gran % (Auto) (0.0-0.4) % Neut % (Auto) (45-73) % Lymph % (Auto) (20-40) % [place] % (Auto) (2-11) % Eos % (Auto) (0-4) % Baso % (Auto) (0-2) % Lymph # (Auto) (1.2-4.9) X10*3/uL [place] # (Auto) (0.1-1.2) X10*3/uL Eos # (Auto) (0.0-0.4) X10*3/uL Baso # (Auto) (0.0-0.2) X10*3/uL Abs Immat Gran (auto) (0.00-0.03) X10*3/uL Absolute Neuts (auto) (2.0-8.3) x10*3/uL Absolute Nucleated RBC (0.0-0.012) X10*3/uL Nucleated RBC % (auto) (0.0-0.2) /100WBC Sodium (135-145) mmol/L Potassium (3.3-5.1) mmol/L Chloride (96-108) mmol/L Carbon Dioxide (22-29) mmol/L Anion Gap (12-20) BUN (9-16) mg/dL Creatinine (0.5-1.4) mg/dL Estim Creat Clear Calc Estimated GFR Random Glucose (60-115) mg/dL Lactic Acid (0.5-2.0) mmol/L Calcium (8.4-10.2) mg/dL Magnesium (1.6-2.6) mg/dL Total Bilirubin (0.0-1.0) mg/dL Direct Bilirubin (0.0-0.5) mg/dL AST (5-31) U/L ALT (0-31) U/L Alkaline Phosphatase (39-117) U/L Total Protein (6.5-8.0) g/dL Albumin (3.5-5.0) g/dL TSH 0.21 L (0.32-4.0) uIU/mL Free T4 1.45 (0.71-1.85) ng/dL Influenza Type A (PCR) POSITIVE A (Negative) Influenza Type B (PCR) NEGATIVE (Negative) RSV RNA Qual (PCR) NEGATIVE (Negative) SARS-CoV-2 RNA (RT-PCR) POSITIVE A (Negative) <Mayda Cain MD - Last Filed: 07/12/22 18:36> Independent Interpretation I performed an independent interpretation of an: Plain X-Ray (My interpretation of the x-ray: No infiltrates) <Mayda Cain MD - Last Filed: 07/12/22 18:36> Radiology Impression Discussion of test interpretation with radiology: I have reviewed the radiologist's reading. <Mayda Cain MD - Last Filed: 07/12/22 18:36> Radiologist Impression: No significant abnormality is noted involving the heart, lungs, mediastinum, bony thorax or soft tissues. XR/XR chest 1V IMPRESSION: Unremarkable examination. <Mayda Cain MD - Last Filed: 07/12/22 18:36> Critical Care Time Critical Care Time Critical Care Time: Yes <Mayda Cain MD - Last Filed: 07/12/22 18:36> Total Critical Care Time: 60 <Mayda Cain MD - Last Filed: 07/12/22 18:36> Attestation: I have personally provided critical care time. Time includes review of lab data, radiology results, discussion with consultants, and monitoring for potential decompensation. Intervention performed as documented. <Mayda Cain MD - Last Filed: 07/12/22 18:36> Discharge Plan Discharge Clinical Impression: COVID-19, Adrenal insufficiency, Influenza A <FRANK Nicole - Last Filed: 07/12/22 14:43> Patient Disposition: Admitted As Inpatient <FRANK Nicole - Last Filed: 07/12/22 14:43> Prescriptions: No Action atorvastatin [Lipitor] 40 mg tablet 40 mg PO DAILY Qty: 90 3RF levothyroxine 100 mcg tablet 100 mcg PO DAILY 90 Days Qty: 90 0RF hydrocortisone 5 mg tablet 5 mg PO TID Solu-Cortef Act-O-Vial (PF) 100 mg/2 mL recon soln 100 mg IM ONCE PRN (Reason: Unable to tolerate PO) 30 Days Qty: 1 3RF <FRANK Nicole - Last Filed: 07/12/22 14:43>
--- NOTE | 2022-07-12 14:40 | ECG_ITS ---
Test Reason : weakness Blood Pressure : / mmHG Vent. Rate : 074 BPM Atrial Rate : 074 BPM P-R Int : 160 ms QRS Dur : 080 ms QT Int : 396 ms P-R-T Axes : 073 060 060 degrees QTc Int : 439 ms Normal sinus rhythm Normal ECG No previous ECGs available Referred By: Julissa Acuña Electronically Signed By:VALERIA HERRERA MD
[2022-07-12 15:52] LABS: MANUAL DIFF FLAG NO
[2022-07-12 15:57] LABS: Basophils Percent Auto 0.6 % (0-2); Eosinophils Percent Auto 0.2 % (0-4); Hemoglobin 11.9 g/dl (12.0-16.0); Imm Gran Abs Auto 0.02 X10*3/uL (0.00-0.03); Imm Gran Pct Auto 0.4 % (0.0-0.4); Lymphocytes Absolute Auto 0.8 X10*3/uL (1.2-4.9); Lymphocytes Percent Auto 15.3 % (20-40); Mean Corpuscular HGB Conc 32.2 g/dl (31.0-35.0); Mean Corpuscular Hemoglobin 27.9 pg (27.0-33.0); Mean Corpuscular Volume 86.7 fL (80.0-98.0); Mean Platelet Volume 12.1 fL (9.4-12.3); Monocytes Absolute Auto 0.9 X10*3/uL (0.1-1.2); Monocytes Percent Auto 17.1 % (2-11); Neutrophils Absolute Auto 3.6 x10*3/uL (2.0-8.3); Neutrophils Percent Auto 66.4 % (45-73); Platelet Count 153 X10*3/uL (160-400); Red Blood Count 4.27 X10*6/uL (4.20-5.50); Red Cell Distribution Width 13.2 % (11.0-16.0); White Blood Count 5.4 X10*3/uL (4.8-10.8)
[2022-07-12 16:05] LABS: Lactic Acid 1.1 mmol/L (0.5-2.0)
[2022-07-12 16:10] LABS: Alanine Aminotransferase 38 U/L (0-31); Albumin Level 3.8 g/dL (3.5-5.0); Alkaline Phosphatase 52 U/L (39-117); Anion Gap 14 (12-20); Aspartate Amino Transferase 37 U/L (5-31); Bilirubin Direct 0.3 mg/dL (0.0-0.5); Bilirubin Total 0.8 mg/dL (0.0-1.0); Blood Urea Nitrogen 16 mg/dL (9-16); Calcium 8.7 mg/dL (8.4-10.2); Carbon Dioxide 25 mmol/L (22-29); Chloride 96 mmol/L (96-108); Creatinine Clr Calc Pharmacy 38.7; Estimated Glomerular Filt Rate 41; Glucose Random 102 mg/dL (60-115); Magnesium 1.6 mg/dL (1.6-2.6); Potassium 4.6 mmol/L (3.3-5.1); Sodium 130 mmol/L (135-145); Total Protein 6.4 g/dL (6.5-8.0)
[2022-07-12 16:29] LABS: TSH reflex Free T4 0.21 uIU/mL (0.32-4.0)
[2022-07-12 16:33] LABS: Influenza A PCR POSITIVE (Negative); Influenza B PCR NEGATIVE (Negative); Resp Syncy Virus RNA Qual PCR NEGATIVE (Negative); SARS COV2 PCR INHOUSE POSITIVE (Negative)
[2022-07-12] MEDS: Hydrocortisone Sod Succ/PF 100 MG VIAL IVPUSH (16:59)
[2022-07-12] MEDS: Lactated Ringers 1,000 ML 999 ML IV (17:00)
[2022-07-12 17:07] LABS: Free T4 (Free Thyroxine) 1.45 ng/dL (0.71-1.85)
--- NOTE | 2022-07-12 18:35 | P.HPHOSP_ITS ---
History of Present Illness Date of Service: 07/12/22 Chief Complaint: Nausea and weakness 67-year-old female with history of adrenal insufficiency on hydrocortisone 15mg/day, and other past medical history as listed below. She presented with several days of increasing malaise, weakness nausea but without vomiting, no shortness of breath she was found to have positive COVID as well as positive influenza A. She she is borderline hypotensive with blood pressure 99/57. No other source of infection. subjective fever. Review of Systems Review of Systems: weakness, nausea, malaise, no sob, no fever Yes all other systems are reviewed and are negative [facility] Medical History Adrenal cortex insufficiency Adrenal insufficiency Annual physical exam Hepatitis B Hepatitis B Hyperlipidemia Hypothyroidism Osteoporosis Panhypopituitarism Pituitary microadenoma Shoulder pain Tick bite Tinnitus Vitamin D deficiency Family History Father No problems noted. Mother No problems noted. Brother Hyperparathyroidism Sister Osteoporosis Surgical History History of carpal tunnel surgery Social History Household Members: Spouse Housing: House Do you presently have visiting nurse or other home services: No Alcohol intake: former Patient Tobacco Use Status: Former Tobacco user Cigarette Packs Per Day: 1 Years Smoked: 25 e-Cigarette/Vaping Use: Never Used Substance Use Type: Marijuana Advance Directives: No Advance Directives Information Provided: No Current occupational status: employed and retired Cognitive needs: No Hearing needs: No Vision needs: Yes Meds Allergies Allergy/AdvReac Type Severity Reaction Status Date / Time No Known Allergies Allergy Verified 07/12/22 14:40 [No Known Allergies*] Active Medications: Current Medications Sodium Chloride (Ns) 1,000 mls @ 999 mls/hr IVCONT .Q1H1M ONE Stop: 07/12/22 18:39 Pharmacy Consult (Consult Rx Perform Med Rec) 1 each MISCELLANE ONCE PRN PRN Reason: Consult order Home Medications Medication Instructions Recorded Confirmed Last Taken Type hydrocortisone 5 mg tablet 5 mg PO TID 05/26/22 06/01/22 05/25/22 History Physical Exam Vital Signs and Narrative: Vital Signs: Last Vital Signs Temp 98.5 F 07/12/22 14:37 Pulse 81 07/12/22 14:37 Resp 16 07/12/22 14:37 BP 99/57 L 07/12/22 14:37 Pulse Ox 95 07/12/22 14:37 O2 Del Method 07/12/22 14:37 BMI result Body Mass Index 27.4 Const: Other: Constitutional: Alert, in no distress, Mental Status: Oriented to person, place and time. Eyes: Pupils are equal, round and reactive to light. Ear, Nose and Throat: Oropharynx clear, mucous membranes moist. Ears and nose without eformities. Trachea midline. Respiratory: Clear to auscultation. No wheezing, rales or rhonchi. Cardiovascular: S1 S2 regular. No murmurs, rubs or gallops. Gastrointestinal: Abdomen soft, non-tender, non-distended. Normal bowel sounds.? Neurologic: Cranial nerves II-XII grossly intact. No focal neurological deficits. Moves all extremities spontaneously.? Skin: No rashes or lesions.? Musculoskeletal: No cyanosis or clubbing. Psychiatric: Normal mood and affect? Results Labs CBC and Chem 7: 07/12/22 15:46 07/12/22 15:46 Labs: Laboratory Results - last 24 hr 07/12/22 07/12/22 07/12/22 15:46 15:46 15:46 MCV 86.7 MCH 27.9 MCHC 32.2 RDW 13.2 Plt Count 153 L D MPV 12.1 Immature Gran % (Auto) 0.4 Neut % (Auto) 66.4 Lymph % (Auto) 15.3 L [place] % (Auto) 17.1 H Eos % (Auto) 0.2 Baso % (Auto) 0.6 Lymph # (Auto) 0.8 L [place] # (Auto) 0.9 Eos # (Auto) 0.0 Baso # (Auto) 0.0 Abs Immat Gran (auto) 0.02 Absolute Neuts (auto) 3.6 Absolute Nucleated RBC 0.000 Nucleated RBC % (auto) 0.0 Anion Gap 14 Estim Creat Clear Calc 38.7 Estimated GFR 41 Random Glucose 102 Lactic Acid 1.1 Calcium 8.7 D Magnesium 1.6 Total Bilirubin 0.8 Direct Bilirubin 0.3 AST 37 H ALT 38 H Alkaline Phosphatase 52 Total Protein 6.4 L Albumin 3.8 TSH Free T4 Influenza Type A (PCR) Influenza Type B (PCR) RSV RNA Qual (PCR) SARS-CoV-2 RNA (RT-PCR) 07/12/22 07/12/22 15:46 15:46 MCV MCH MCHC RDW Plt Count MPV Immature Gran % (Auto) Neut % (Auto) Lymph % (Auto) [place] % (Auto) Eos % (Auto) Baso % (Auto) Lymph # (Auto) [place] # (Auto) Eos # (Auto) Baso # (Auto) Abs Immat Gran (auto) Absolute Neuts (auto) Absolute Nucleated RBC Nucleated RBC % (auto) Anion Gap Estim Creat Clear Calc Estimated GFR Random Glucose Lactic Acid Calcium Magnesium Total Bilirubin Direct Bilirubin AST ALT Alkaline Phosphatase Total Protein Albumin TSH 0.21 L Free T4 1.45 Influenza Type A (PCR) POSITIVE A Influenza Type B (PCR) NEGATIVE RSV RNA Qual (PCR) NEGATIVE SARS-CoV-2 RNA (RT-PCR) POSITIVE A Imaging Radiologist's Impressions: Impressions Chest X-Ray 07/12/22 14:54 IMPRESSION: Unremarkable examination. Assessment and Plan (1) Adrenal insufficiency: Status: Acute (2) COVID-19: Status: Acute (3) Influenza A: Status: Acute Plan 67/ with adrenal insuficiency on hydrocortisone 15 mg daily here with malasise, weakness and found to have +covid and influeza A and halmarks of adrenal insuficiency (low BP, hyponatremia, malaise) 1/Adrenal insuficincy trigered by covid and influenza -Stress dose of Hydrocortizone 100 mg q8 and discuss with endo re how to wily -IVF hydration 2/Hyponatremia--d/t above, normal saline and repeat in the morning 3/Influanze A--no respiratory issures at this time, Tamiflu 4/Covid 19--assymptomatic and no indication for remdesevir at this time. 5/HLD--Lipitor DVT-prophy Lovenox full code Admission to [facility] for management of adrenal crisis, covid and influenza Med rec pending Time Spent With Patient Time: Total time managing care of this patient today ____ minutes. Quality Stroke Does the patient have a stroke diagnosis?: No VTE Prior VTE?: No VTE Risk Level:: Medical - moderate - high VTE Device Contraindication: Treatment Not Indicated VTE Drug Contraindication: N/A - Med Ordered
[2022-07-12] MEDS: 0.9 % Sodium Chloride 1,000 ML 999 ML IVCONT (18:42)
[2022-07-12] MEDS: ondansetron HCL 4 MG/2 ML VIAL IVPUSH ×2 (18:43→21:55)
--- NOTE | 2022-07-12 18:51 | PHA.MEDREC ---
Pharmacy Consult ? Medication Reconciliation Pharmacy has completed the medication reconciliation.
--- NOTE | 2022-07-12 20:11 | PC.NURSE ---
Assumed care for pt. Pt has a room available for admission at this time. Vesper text sent to JOHNATHON Barber to provide report.
[2022-07-12] MEDS: 0.9 % Sodium Chloride 1,000 ML 125 ML IVCONT (21:55)
[2022-07-12 23:27] VITALS: BP 114/60; PULSE 85; RESP 16; TEMP 37.1; O2SAT 97
[2022-07-13 03:05] VITALS: BP 125/65; PULSE 83; RESP 16; TEMP 37.6; O2SAT 96
[2022-07-13] MEDS: 0.9 % Sodium Chloride 1,000 ML 125 ML IVCONT (04:41)
[2022-07-13 06:27] LABS: Anion Gap 10 (12-20); Blood Urea Nitrogen 14 mg/dL (9-16); Calcium 8.1 mg/dL (8.4-10.2); Carbon Dioxide 24 mmol/L (22-29); Chloride 105 mmol/L (96-108); Creatinine Clr Calc Pharmacy 56.7; Estimated Glomerular Filt Rate > 60; Glucose Random 110 mg/dL (60-115); Sodium 135 mmol/L (135-145)
[2022-07-13 07:37] VITALS: BP 121/59; PULSE 80; RESP 20; TEMP 36.4; O2SAT 96
--- NOTE | 2022-07-13 08:37 | MHC.CM.PN ---
IMM EXPLAINED TO PT OVER PHONE, WHITE COPY TO BE MAILED AND YELLOW COPY TO CHART. LIVES WITH SPOUSE IN A [facility]. NO PRIOR SERVICES OR DME . INDEPENDENT AT BASELINE. + COVID VAX X3 NO HCP, DECLINES AT THIS TIME. [place] [facility] [place] [facility] [place], NO SERVICES ANTICIPATED. [facility] WILL TRANSPORT AT [place]. CM WILL CONTINUE TO FOLLOW FOR ANY CHANGE IN PLAN.
[2022-07-13] MEDS: 0.9 % Sodium Chloride Flush 3 ML SYRINGE IVFLUSH ×2 (10:00→17:39)
[2022-07-13] MEDS: Hydrocortisone Sod Succ/PF 100 MG VIAL IVPUSH ×2 (10:00→17:39)
--- NOTE | 2022-07-13 11:09 | P.PNIM_ITS ---
Subjective Subjective Date of Service: 07/13/22 Interval History: Follow-up on adrenal crisis Interval history: Still feels weak, no COVID symptoms Review of Systems weakness, nausea, malaise, no sob, no fever Physical Exam Vital Signs: Vital Signs: Last Vital Signs Temp 97.5 F 07/13/22 07:37 Pulse 80 07/13/22 07:37 Resp 20 07/13/22 07:37 BP 121/59 L 07/13/22 07:37 Pulse Ox 96 07/13/22 07:37 O2 Del Method 07/13/22 07:37 BMI result Body Mass Index 27.4 Const: Other: General: AO X 3, no acute distress Resp: CTA bilateral CVS: S1,S2,RRR GI: +BS, NT, no distention Skin: No rash Neuro: motor grossly intact Psych: appropriate affect Objective Data Active Medications Acetaminophen (Acetaminophen 325 Mg Tablet) 650 mg PO Q6H PRN PRN Reason: Pain, Mild (Pain Scale 1-3) Hydrocortisone Sodium Succinate (Hydrocortisone Sod Succ/Pf 100 Mg Vial) 100 mg IVPUSH Q8H [facility] Last Admin: 07/13/22 10:00 Dose: 100 mg Documented By: SANDRITA Sodium Chloride (Ns) 1,000 mls @ 125 mls/hr IVCONT .Q8H [facility] Last Admin: 07/13/22 04:41 Dose: 125 mls/hr Documented By: CICI Magnesium Hydroxide (Milk Of Magnesia 30 Ml Oral.Susp) 30 ml PO DAILY PRN PRN Reason: Constipation Melatonin (Melatonin 3 Mg Tablet) 6 mg PO BEDTIME PRN PRN Reason: Insomnia Ondansetron HCl (Ondansetron Hcl 4 Mg/2 Ml Vial) 4 mg IVPUSH Q8H PRN PRN Reason: Nausea and Vomiting Last Admin: 07/12/22 21:55 Dose: 4 mg Documented By: CICI Pharmacy Consult (Consult Rx Perform Med Rec) 1 each MISCELLANE ONCE PRN PRN Reason: Consult order Sodium Chloride (0.9 % Sodium Chloride Flush 3 Ml Syringe) 3 ml IVFLUSH QSHIFT [facility] Last Admin: 07/13/22 10:00 Dose: 3 ml Documented By: SANDRITA Labs CBC & Chem 7: 07/12/22 15:46 07/13/22 05:44 Labs: Laboratory Results - last 24 hr 07/12/22 07/12/22 07/12/22 15:46 15:46 15:46 MCV 86.7 MCH 27.9 MCHC 32.2 RDW 13.2 Plt Count 153 L D MPV 12.1 Immature Gran % (Auto) 0.4 Neut % (Auto) 66.4 Lymph % (Auto) 15.3 L Addison % (Auto) 17.1 H Eos % (Auto) 0.2 Baso % (Auto) 0.6 Lymph # (Auto) 0.8 L Addison # (Auto) 0.9 Eos # (Auto) 0.0 Baso # (Auto) 0.0 Abs Immat Gran (auto) 0.02 Absolute Neuts (auto) 3.6 Absolute Nucleated RBC 0.000 Nucleated RBC % (auto) 0.0 Anion Gap 14 Estim Creat Clear Calc 38.7 Estimated GFR 41 Random Glucose 102 Lactic Acid 1.1 Calcium 8.7 D Magnesium 1.6 Total Bilirubin 0.8 Direct Bilirubin 0.3 AST 37 H ALT 38 H Alkaline Phosphatase 52 Total Protein 6.4 L Albumin 3.8 TSH Free T4 Influenza Type A (PCR) Influenza Type B (PCR) RSV RNA Qual (PCR) SARS-CoV-2 RNA (RT-PCR) 07/12/22 07/12/22 07/13/22 15:46 15:46 05:44 MCV MCH MCHC RDW Plt Count MPV Immature Gran % (Auto) Neut % (Auto) Lymph % (Auto) Addison % (Auto) Eos % (Auto) Baso % (Auto) Lymph # (Auto) Addison # (Auto) Eos # (Auto) Baso # (Auto) Abs Immat Gran (auto) Absolute Neuts (auto) Absolute Nucleated RBC Nucleated RBC % (auto) Anion Gap 10 L Estim Creat Clear Calc 56.7 Estimated GFR > 60 Random Glucose 110 Lactic Acid Calcium 8.1 L D Magnesium Total Bilirubin Direct Bilirubin AST ALT Alkaline Phosphatase Total Protein Albumin TSH 0.21 L Free T4 1.45 Influenza Type A (PCR) POSITIVE A Influenza Type B (PCR) NEGATIVE RSV RNA Qual (PCR) NEGATIVE SARS-CoV-2 RNA (RT-PCR) POSITIVE A Assessment and Plan (1) Adrenal insufficiency: Status: Acute (2) COVID-19: Status: Acute (3) Influenza A: Status: Acute Plan 67/ with adrenal insuficiency on hydrocortisone 15 mg daily here with malasise, weakness and found to have +covid and influeza A and halmarks of adrenal insuficiency (low BP, hyponatremia, malaise) 1/Adrenal insuficincy trigered by covid and influenza -Stress dose of Hydrocortizone 100 mg q8 and discuss with endo re how to wily -IVF hydration 2/Hyponatremia--d/t above, normal and now resolved, dc IVf 3/Influanze A--no respiratory issures at this time, no Tamiflu 4/Covid 19--assymptomatic and no indication for remdesevir at this time. 5/HLD--Lipitor 6/ Hypothyroism--Levothyroxine DVT-prophy Lovenox full code Need for admit: IV Steroid for adreanl crisis Time Spent With Patient Time: Total time managing care of this patient today ____ minutes. Quality Stroke Does the patient have a stroke diagnosis?: No VTE Prior VTE?: No VTE Risk Level:: Medical - moderate - high VTE Device Contraindication: Treatment Not Indicated VTE Drug Contraindication: N/A - Med Ordered
[2022-07-13 11:54] LABS: Thyroid Stimulating Hormone 0.13 uIU/mL (0.32-4.0)
[2022-07-13 15:02] VITALS: BP 140/65; PULSE 80; RESP 20; TEMP 36.1; O2SAT 94
[2022-07-13] MEDS: Levothyroxine Sodium 100 MCG TABLET PO (18:41)
[2022-07-13 19:12] VITALS: BP 133/71; PULSE 81; RESP 20; TEMP 37.3; O2SAT 96
[2022-07-13 23:11] VITALS: BP 118/72; PULSE 80; RESP 18; TEMP 36; O2SAT 98
[2022-07-14] MEDS: Hydrocortisone Sod Succ/PF 100 MG VIAL IVPUSH (01:03)
[2022-07-14] MEDS: 0.9 % Sodium Chloride Flush 3 ML SYRINGE IVFLUSH ×2 (01:07→11:45)
[2022-07-14 03:19] VITALS: BP 119/67; PULSE 85; RESP 18; TEMP 37; O2SAT 98
[2022-07-14] MEDS: Levothyroxine Sodium 100 MCG TABLET PO (06:17)
[2022-07-14 08:00] VITALS: BP 141/65; PULSE 70; RESP 20; TEMP 36.7; O2SAT 96
--- NOTE | 2022-07-14 09:50 | P.DS_ITS ---
DS: Providers Provider Date of Service: 07/14/22 Date of admission: 07/12/22 18:47 Primary care physician: Beatrice He DO DS: Diagnosis Discharge Diagnosis (1) Adrenal insufficiency: Status: Resolved (2) COVID-19: Status: Resolved (3) Influenza A: Status: Acute DS: Summary Hospital Course Hospital Course: Chief Complaint: Nausea and weakness 67-year-old female with history of adrenal insufficiency on hydrocortisone 15mg/day, and other past medical history as listed below.? She presented with several days of increasing malaise, weakness nausea but without vomiting, no shortness of breath she was found to have positive COVID as well as positive influenza A.? She she is borderline hypotensive with blood pressure 99/57.? No other source of infection. subjective fever. Hospital course: The patient presented with symptoms of adrenal crisis, mild in nature in the setting of recent COVID and influenza.. She was nauseous, mild hyponatremia and generalized weakness. She was treated with IV hydrocortisone 100 mg 3 times a day and at this point is feeling much better nearly back at her baseline and will be transitioned back to her oral Solu-Cortef. She was taking 15 mg a day and will increase E to 20 mg a day and ultimately to be transitioned back to her baseline of 15 mg daily. The influenza and COVID were both asymptomatic. Time Spent with Patient Time attestation: Total time managing care of this patient today ____ minutes. Discharge coordination time: Greater than 30 minutes Quality: Safe Use of Opioids Does Pt have an Active Cancer Diagnosis on the Problem List?: No Quality: Stroke Does the patient have a stroke diagnosis?: No Physical Exam Vital Signs: Vital Signs: Last Vital Signs Temp 98.0 F 07/14/22 08:00 Pulse 70 07/14/22 08:00 Resp 20 07/14/22 08:00 BP 141/65 H 07/14/22 08:00 Pulse Ox 96 07/14/22 08:00 O2 Del Method 07/14/22 08:00 BMI result Body Mass Index 27.4 DS: Data Data Completed and Pending Labs on day of discharge: Laboratory Results - last 24 hr 07/13/22 05:44 TSH 0.13 L Discharge Plan Discharge Anticipated Discharge Date/Time: 07/14/22 09:45 Patient Disposition: Home, Self-Care Discharge Diagnosis: Adrenal crisis, influenza, and COVID Referrals: Beatrice Navas DO [Primary Care Provider] - 1 Week Discharge Medications: New ondansetron 4 mg tablet,disintegrating 4 mg PO Q8H PRN (Reason: nausea and vomiting) 10 Days Qty: 30 0RF Continued atorvastatin [Lipitor] 40 mg tablet 40 mg PO DAILY Qty: 90 3RF levothyroxine 100 mcg tablet 100 mcg PO DAILY 90 Days Qty: 90 0RF hydrocortisone 5 mg tablet 7.5 mg PO BIDWM No Action azithromycin 250 mg tablet See Rx Instructions PO .COMPLEX Qty: 6 0RF Rx Instructions: take 500 mg today (day 1), then 250 mg for 4 days (days 2-5) PO Discharge Orders: Discharge Order (Routine); Ordered 07/14/22 Ordered By: Justin English Diet: Advance to usual diet Activity on Discharge: As tolerated Stand Alone Forms: Patient Portal Discharge page Care Plan Goals: Full recovery from adrenal crisis Health Concerns: Adrenal crisis, COVID, influenza. Plan of Treatment: Take hydrocortisone as directed. Follow-up with your supplier diversity director, call for appointment. Double the usual dose of Hydrocortisone to 30 mg a day for 3 days, then cut back to the usual dose of 15 mg a day and call your Health Care Facility Administrator next week Assessment: as above Discharge Date/Time: 07/14/22 16:00
--- NOTE | 2022-07-14 11:27 | MHC.CM.PN ---
DP: PT MEDICALLY CLEARED FOR DC HOME, NO SERVICES. RN AWARE. [facility] WILL TRANSPORT.
[2022-07-14] MEDS: Hydrocortisone 10 MG TABLET 15 MG PO (11:42)
[2022-07-14] MEDS: Atorvastatin Calcium 40 MG TABLET PO (11:45)
[2022-07-14 12:24] LABS: COVID-19 Test Negative (Negative); IDNOW Serial# 55D5AD1C
== END 2022-07-14 16:00 | disposition home or self-care (01) | DRG 643 ==
LOC: HO.ED 18:36 → HO.EDOVER 18:58 → HO.IMC 19:29
PROVIDERS: Physician Assistant; Admitting Provider Internal Medicine; Emergency Provider Emergency Medicine; PCP Internal Medicine; Visit Provider Internal Medicine
DX: E27.2 Addisonian crisis (principal); U07.1 COVID-19; E87.1 Hypo-osmolality and hyponatremia; E27.49 Other adrenocortical insufficiency; J10.1 Influenza due to other identified influenza virus with other respiratory manifestations; E78.5 Hyperlipidemia, unspecified; Z87.891 Personal history of nicotine dependence; Z79.890 Hormone replacement therapy; Z79.899 Other long term (current) drug therapy
CPT/HCPCS: 0241U; 36415; 71045; 80048; 80076; 83605; 83735; 84439; 84443; 85025; 87635; 93005; 99285; J2405

== ENCOUNTER 2022-07-19 14:08 | Outpatient (REF) | payer MEDICARE, SELFPAY ==
--- NOTE | ~2022-07-19 | MM_ITS ---
EXAMINATION: BONE DENSITOMETRY CLINICAL INDICATION: Age-related osteoporosis without current pathological fracture. COMPARISON: Previous BD dated 04/28/2020 and baseline BD dated 01/31/2008. TECHNIQUE: Using a [employer] DXA System (software version: 13.1) manufactured by [employer], dual-energy x-ray absorptiometry was performed of the lumbar spine and left hip. The images are of good technical quality. Summary results are attached. FINDINGS: AP SPINE L1-L4: Current: BMD 1.188 g/cm2, Z-score 1.5, T-score 0.1, normal, 3.1% increase from previous, 8.9% increase from baseline (<5% change is not significant). Prior: BMD 1.152 g/cm2. Baseline: BMD 1.091 g/cm2. LEFT FEMUR, NECK: Current: BMD 0.700 g/cm2, Z-score -0.9, T-score -2.4, osteopenia. Prior: BMD 0.716 g/cm2. Baseline: BMD 0.821 g/cm2. LEFT FEMUR, TOTAL: Current: BMD 0.824 g/cm2, Z-score -0.2, T-score -1.5, osteopenia, 0.8% decrease from previous, 11.5% decrease from baseline (<5% change is not significant). Prior: BMD 0.831 g/cm2. Baseline: BMD 0.931 g/cm2. IDENTIFIED RISK FACTORS: Glucocorticoids (chronic), menopause. HISTORY OF FRACTURE: None listed. MEDICATIONS: Calcium supplements or multivitamin, vitamin D. MM/XR DEXA axial skeleton IMPRESSION: 1. DIAGNOSIS: Osteopenia based on the lowest T-score value of -2.4 in the femoral neck applying World Health Organization criteria. 2. 10-YEAR FRACTURE RISK PREDICTION, FRAX: Major osteoporotic fracture (clinical spine, forearm, hip or shoulder) 21.8%. Hip fracture 5.9%. 3. Treatment Recommendations: NOF guidelines recommend consideration for treatment in postmenopausal women and men age 50 and older presenting with the following: -A hip or vertebral (clinical or morphometric) fracture. -T-score less than or equal to -2.5 at the femoral neck or spine after appropriate evaluation to exclude secondary causes. -Low bone mass at the hip or spine and a 10-year fracture probability by FRAX of greater than or equal to 3% for hip fracture or greater than or equal to 20% for major osteoporotic fracture based on the [place] adapted WHO algorithm. 4. Other Recommendations: All treatment decisions require clinical judgment and consideration of individual patient factors, including patient preferences, comorbidities, previous drug use, risk factors not captured in the FRAX model (e.g. frailty, falls, vitamin D deficiency, increased bone turnover, interval significant decline in bone density) and possible under or overestimation of fracture risk by FRAX. Additional medical evaluation for secondary cause of low bone mineral density may be appropriate. FUTURE SCAN RECOMMENDATION: People with diagnosed cases of osteoporosis or at high risk for fracture should have regular bone mineral density tests. For patients eligible for Medicare, routine testing is allowed once every 2 years. The testing frequency can be increased to one year for patients who have rapidly progressing disease, those who are receiving or discontinuing medical therapy to restore bone mass, or have additional risk factors.
== END 2022-07-19 14:09 | disposition home or self-care (01) ==
LOC: HO.MAMMO 14:08
PROVIDERS: PCP Internal Medicine; Visit Provider Internal Medicine
DX: M81.0 Age-related osteoporosis without current pathological fracture (principal)
CPT/HCPCS: 77080

== ENCOUNTER 2022-07-22 13:10 | Outpatient (REF) | payer MEDICARE, SELFPAY ==
--- NOTE | ~2022-07-22 | XR_ITS ---
EXAMINATION: XR CHEST CLINICAL INFORMATION: Cough. COMPARISON: None TECHNIQUE: 2 views of the chest were obtained. FINDINGS: The lungs are well-expanded and clear. The heart size and pulmonary vascularity is normal. No gross bony abnormality seen. XR/XR chest 2V IMPRESSION: Unremarkable chest examination.
[2022-07-22 16:29] LABS: Influenza A PCR NEGATIVE (Negative); Influenza B PCR NEGATIVE (Negative); Resp Syncy Virus RNA Qual PCR NEGATIVE (Negative); SARS COV2 PCR INHOUSE NEGATIVE (Negative)
== END 2022-07-22 13:11 | disposition home or self-care (01) ==
LOC: HO.HMGCX 13:10
PROVIDERS: PCP Internal Medicine; Visit Provider Physician Assistant Medical
DX: Z20.822 Contact with and (suspected) exposure to COVID-19 (principal); R05.9 Cough, unspecified
CPT/HCPCS: 0241U; 71046

== ENCOUNTER 2022-07-24 09:52 | Outpatient (REF) | payer MEDICARE, SELFPAY ==
--- NOTE | ~2022-07-24 | MR_ITS ---
EXAMINATION: MRI OF THE BRAIN WITHOUT AND WITH CONTRAST CLINICAL INFORMATION: Benign neoplasm of pituitary gland. Follow-up. COMPARISON: MRI scan of the brain 06/20/2021. TECHNIQUE: Multiplanar, multisequential imaging was obtained without and with intravenous administration of contrast. Intravenous contrast: Gadavist3.5 mL. FINDINGS: There is an area of decreased differential enhancement the anterior lobe of the pituitary gland in the midline which measures 4.0 x 2.0 x 2.0 mm in AP, transverse and craniocaudal dimensions. This measured 5.0 x 4.0 x 2.0 cm on the prior study. The infundibulum is midline. The cavernous sinuses opacify symmetrically. The internal carotid artery flow-voids are maintained. The optic chiasm is normal. No suprasellar soft tissue abnormality is seen. The sella turcica is normal. No diffusion abnormalities are identified to suggest an acute or subacute infarct. The ventricles and sulci are slightly commensurately prominent consistent with diffuse volume loss. Brain parenchymal signal is unremarkable. No mass effect or midline shift is seen. There is no acute or chronic hemorrhage. No extra-axial fluid collections are noted. The brainstem and cerebellum are normal. On postcontrast imaging, there is no other abnormal parenchymal or leptomeningeal enhancement. The craniovertebral junction, marrow signal, and midline structures are normal. The mastoid air cells are well-aerated. There is a retention cyst in the inferior right maxillary sinus. MR/MR head/brain wo/w con IMPRESSION: 1. The study redemonstrates an area of decreased differential enhancement in the anterior lobe of the pituitary gland which is slightly smaller compared to prior imaging. This area is consistent with a microadenoma. 2. There is mild diffuse volume loss. The brain parenchymal signal appears normal. No other masses are demonstrated and there is no abnormal enhancement elsewhere.
[2022-07-24 11:24] LABS: Alanine Aminotransferase 20 U/L (0-31); Alkaline Phosphatase 44 U/L (39-117); Anion Gap 11 (12-20); Aspartate Amino Transferase 19 U/L (5-31); Bilirubin Total 0.7 mg/dL (0.0-1.0); Blood Urea Nitrogen 12 mg/dL (9-16); Calcium 9.2 mg/dL (8.4-10.2); Carbon Dioxide 27 mmol/L (22-29); Chloride 106 mmol/L (96-108); Estimated Glomerular Filt Rate > 60; Glucose Random 83 mg/dL (60-115); Potassium 4.3 mmol/L (3.3-5.1); Sodium 140 mmol/L (135-145); Total Protein 6.6 g/dL (6.5-8.0)
[2022-07-24 12:10] LABS: Free T4 (Free Thyroxine) 1.66 ng/dL (0.71-1.85); Thyroid Stimulating Hormone 0.74 uIU/mL (0.32-4.0); Vitamin D 25-OH Total 37.8 ng/mL (>30)
[2022-07-24 12:20] LABS: Cortisol Random 2.8 ug/dL
[2022-07-24 13:38] LABS: Osmolality, Serum 293 mosm/kg (281-305)
[2022-07-25 12:58] LABS: Calcium (PTHI) 9.2 mg/dL (8.6-10.4); PTHI 72 pg/mL (16-77)
[2022-07-25 13:34] LABS: Hepatitis B Viral DNA Qn - cp <1.00 NOT DETECTED Log IU/mL (NOT DETECTED); Hepatitis B Viral DNA Qn-IU/mL <10 NOT DETECTED IU/mL (NOT DETECTED)
[2022-07-26 01:09] LABS: Adrenocorticotropic Hormone 22 pg/mL (6-50)
[2022-07-26 03:38] LABS: Sex Hormone Binding Globulin 38 nmol/L (14-73); Triiodothyronine T3 Total 102 ng/dL (76-181)
[2022-07-26 17:35] LABS: Follicle Stimulating Hormone 23.2 mIU/mL; Lutenizing Hormone 7.9 mIU/mL
[2022-07-29 18:14] LABS: FIB-ALT 18 U/L (6-29); FIB-Alpha-2-Macroglobulin 164 mg/dL (106-279); FIB-Apolipoprotein A1 177 mg/dL (101-198); FIB-GGT 29 U/L (3-65); FIB-Haptoglobin 181 mg/dL (43-212); FIB-Total Bilirubin 0.6 mg/dL (0.2-1.2); Liver Fibrosis Score 0.14; Liver Fibrosis Stage F0; Nec Inflam Act Grade A0; Nec Inflam Act Score 0.05
[2022-07-29 21:39] LABS: Estradiol Ultra Sensitive <2 pg/mL
[2022-07-30 18:24] LABS: IGF-1 (Somatomedin C) 50 ng/mL (41-279); IGF-1 Z Score (Female) -1.5 SD (-2.0 - +2.0)
[2022-08-04 00:58] LABS: N-Telopeptide 36 (see note); NTXCreaRU 162 mg/dL (20-275)
== END 2022-07-24 09:53 | disposition home or self-care (01) ==
LOC: HO.MRI 09:52
PROVIDERS: PCP Internal Medicine; Referring Provider Internal Medicine; Visit Provider Internal Medicine
DX: D35.2 Benign neoplasm of pituitary gland (principal); M81.0 Age-related osteoporosis without current pathological fracture; E55.9 Vitamin D deficiency, unspecified; B19.10 Unspecified viral hepatitis B without hepatic coma
CPT/HCPCS: 36415; 70553; 80053; 81596; 82024; 82306; 82523; 82533; 82670; 83001; 83002; 83930; 83970; 84100; 84146; 84270; 84305; 84439; 84443; 84480; 87517; A9585

== ENCOUNTER → 2022-08-21 09:01 | Outpatient (BNVA) | payer MEDICARE, SELFPAY | PROVIDERS: PCP Internal Medicine; Visit Provider Internal Medicine | DX: D35.2 Benign neoplasm of pituitary gland (principal); E03.9 Hypothyroidism, unspecified; E23.0 Hypopituitarism; E55.9 Vitamin D deficiency, unspecified; M81.0 Age-related osteoporosis without current pathological fracture | CPT/HCPCS: 99212 ==

== ENCOUNTER → 2022-08-29 13:53 | Outpatient (BNVA) | payer MEDICARE, SELFPAY | PROVIDERS: PCP Internal Medicine; Visit Provider Internal Medicine | DX: Z13.89 Encounter for screening for other disorder (principal) ==

== ENCOUNTER → 2022-09-11 10:42 | Outpatient (BNVA) | payer MEDICARE, SELFPAY | PROVIDERS: PCP Internal Medicine; Referring Provider Internal Medicine; Visit Provider Nurse Practitioner Family | DX: Z12.11 Encounter for screening for malignant neoplasm of colon (principal) | CPT/HCPCS: 99202 ==

== ENCOUNTER → 2022-09-22 11:24 | Outpatient (BNVA) | payer MEDICARE, SELFPAY | PROVIDERS: PCP Internal Medicine; Visit Provider Internal Medicine | DX: B19.10 Unspecified viral hepatitis B without hepatic coma (principal) | CPT/HCPCS: 99212 ==

== ENCOUNTER 2022-10-10 06:27 | Day surgery (SDC) | payer MEDICARE, SELFPAY ==
[2022-10-05 12:42] VITALS: BMI 29.7
--- NOTE | 2022-10-09 13:14 | P.CONAN_ITS ---
HPI - Anesthesia Eval Consult details Narrative: 67yo F for Colonoscopy hydrocortisone PO bid for adrenal insufficiency PMFSH Active Problems Active Problems: All Active Problems (Updated 07/22/22 @ 00:02 by Mario Alberto Tilley) Influenza A (Acute) Positive colorectal cancer screening using Cologuard test (Acute) Panhypopituitarism (Acute) Hyperlipidemia (Acute) Pituitary microadenoma (Acute) Hepatitis B (Acute) Annual physical exam (Acute) Tinnitus (Acute) Vitamin D deficiency (Acute) Adrenal insufficiency (Acute) Hyperlipidemia (Acute) Tick bite (Acute) Shoulder pain (Acute) Hepatitis B (Acute) Osteoporosis (Acute) Hypothyroidism (Acute) Adrenal cortex insufficiency (Acute) Past Medical History Medical History (Updated 10/20/22 @ 09:57 by Elise Wilburn [facility]) Adrenal cortex insufficiency Adrenal insufficiency Annual physical exam Diverticulosis Hepatitis B Hepatitis B Hyperlipidemia Hypothyroidism Osteoporosis Panhypopituitarism Pituitary microadenoma Sessile serrated polyp of colon Shoulder pain Tick bite Tinnitus Vitamin D deficiency Family History Family History Father No problems noted. Mother No problems noted. Brother Hyperparathyroidism Sister Osteoporosis Surgical History Surgical History History of carpal tunnel surgery Hx of colonoscopy Social History Social History Household Members: Spouse Housing: House Do you presently have visiting nurse or other home services: No Alcohol intake: former Patient Tobacco Use Status: Former Tobacco user Cigarette Packs Per Day: 1 Years Smoked: 25 e-Cigarette/Vaping Use: Never Used Substance Use Type: Marijuana service: No Current occupational status: retired Cognitive needs: No Hearing needs: No Vision needs: Yes Meds Allergies Allergy/AdvReac Type Severity Reaction Status Date / Time No Known Allergies Allergy Verified 10/20/22 09:23 [No Known Allergies*] Home Medications Medication Instructions Recorded Confirmed Last Taken Type hydrocortisone 5 mg tablet 7.5 mg PO BIDWM 05/26/22 10/10/22 10/10/22 History Exam Exam Date and Time: October 09, 2022 1314 Height,Weight and Vital Signs: Height 5 ft 2 in Weight 73.6 kg Pertinent Lab Results Pertinent Lab Results: Laboratory Tests 07/12/22 07/24/22 15:46 10:17 WBC 5.4 Hgb 11.9 L Hct 37.0 Plt Count 153 L D Sodium 140 Potassium 4.3 Chloride 106 Carbon Dioxide 27 BUN 12 Creatinine 0.90 Narrative Narrative: EKG 06/2022 Vent. Rate : 074 BPM ? ? Atrial Rate : 074 BPM ?? P-R Int : 160 ms? QRS Dur : 080 ms ? ? QT Int : 396 ms ? ? ? P-R-T Axes : 073 060 060 degrees ?? QTc Int : 439 ms ? Normal sinus rhythm Normal ECG No previous ECGs available Assessment and Plan Assessment Anesthesia Assessment: Chart Reviewed
--- NOTE | 2022-10-10 06:26 | MHC.SHP ---
Pre-Procedural Eval Section A Date of Service: 10/10/22 Section B Chief Complaint: Other fecal abnormalities Details of Present Illness: pos cologuard test Relevant Family History (Specify if Yes): No Relevant Social History: None Present Medications: see Short Stay Collaborative assessment Medical History: Significant History (Adrenal cortex insufficiency Adrenal insufficiency Annual physical exam Hepatitis B Hepatitis B Hyperlipidemia Hypothyroidism Osteoporosis Panhypopituitarism Pituitary microadenoma Shoulder pain Tick bite Tinnitus Vitamin D deficiency) History of Previous Operations: No relevant previous surgery Allergies: Allergies Allergy/AdvReac Type Severity Reaction Status Date / Time No Known Allergies Allergy Verified 09/22/22 12:05 [No Known Allergies*] Review of Systems Sugical H&P ROS: Negative: Constitution, Cardiovascular, Respiratory, Neurological, Psychiatric, Hem-Onc, Allergic/Immunologic, Gastrointestinal, Genitourinary, Musculoskeletal, Integumentary, Endocrine and Eyes/Ears/Nose/Throat Exam Surgical H&P Exam: Normal: HEENT, Normal: Heart, Normal: Lungs, Normal: Extremities, Normal: Abdomen, Normal: Skin and Normal: Neurological Plan Diagnosis/Plan: Unchanged I have reviewed the history and physical and performed a pertinent physical examination on my patient. No changes have occurred unless specified. Time Spent With Patient Time: Total time managing care of this patient today ____ minutes.
[2022-10-10 06:32] VITALS: BMI 28.9
[2022-10-10 06:37] VITALS: BP 121/63; PULSE 70; RESP 16; TEMP 36.4; O2SAT 98
[2022-10-10] MEDS: Lactated Ringers 1,000 ML 100 ML IVCONT (06:53)
--- NOTE | 2022-10-10 07:13 | P.CONAN_ITS ---
[facility] Active Problems Active Problems: All Active Problems (Updated 07/22/22 @ 00:02 by Mario Alberto Tilley) Influenza A (Acute) Positive colorectal cancer screening using Cologuard test (Acute) Panhypopituitarism (Acute) Hyperlipidemia (Acute) Pituitary microadenoma (Acute) Hepatitis B (Acute) Annual physical exam (Acute) Tinnitus (Acute) Vitamin D deficiency (Acute) Adrenal insufficiency (Acute) Hyperlipidemia (Acute) Tick bite (Acute) Shoulder pain (Acute) Hepatitis B (Acute) Osteoporosis (Acute) Hypothyroidism (Acute) Adrenal cortex insufficiency (Acute) Past Medical History Medical History Adrenal cortex insufficiency Adrenal insufficiency Annual physical exam Hepatitis B Hepatitis B Hyperlipidemia Hypothyroidism Osteoporosis Panhypopituitarism Pituitary microadenoma Shoulder pain Tick bite Tinnitus Vitamin D deficiency Functional capacity: independent ambulation Patient : No Family History Family History Father No problems noted. Mother No problems noted. Brother Hyperparathyroidism Sister Osteoporosis Surgical History Surgical History History of carpal tunnel surgery Social History Social History Household Members: Spouse Housing: House Do you presently have visiting nurse or other home services: No Alcohol intake: former Patient Tobacco Use Status: Former Tobacco user Cigarette Packs Per Day: 1 Years Smoked: 25 e-Cigarette/Vaping Use: Never Used Use of substances other than those prescribed or required for medical reasons: No Substance Use Type: Marijuana Are you DNR?: No Advance Directives: No Advance Directives Information Provided: Yes Recently lost weight without trying: No Nutrition Risks: No Nutritional Risk service: No Current occupational status: retired Cognitive needs: No Hearing needs: No Vision needs: Yes Meds Allergies Allergy/AdvReac Type Severity Reaction Status Date / Time No Known Allergies Allergy Verified 09/22/22 12:05 [No Known Allergies*] Active Medications: Current Medications Lactated Ringer's (Lr) 1,000 mls @ 100 mls/hr IVCONT .Q10H [facility] Last Admin: 10/10/22 06:53 Dose: 100 mls/hr Home Medications Medication Instructions Recorded Confirmed Last Taken Type hydrocortisone 5 mg tablet 7.5 mg PO BIDWM 05/26/22 10/10/22 10/10/22 History Exam Exam Date and Time: October 10, 2022712 Height,Weight and Vital Signs: Height 5 ft 2 in Weight 71.668 kg Last Vital Signs Temp 97.6 F 10/10/22 06:37 Pulse 70 10/10/22 06:37 Resp 16 10/10/22 06:37 BP 121/63 10/10/22 06:37 Pulse Ox 98 10/10/22 06:37 O2 Del Method Room Air 10/10/22 06:37 Airway Mallampati Class: III TM Dist: >3cm Neck ROM: Full Heart: RRR Lungs: CTA Assessment and Plan Final Anesthetic Review ASA Class: II Final Preanesthetic Review: Meds/Allgs Chart Reviewed, Consent Obtained/Reviewed and Anes Risks/Benef Reviewed Patient Risk: Low Procedure Risk: Low Anesthetic Plan Anesthetic Plan: MAC: Disposition: Standard PACU
--- NOTE | 2022-10-10 07:45 | W.PM.OPN ---
Operative Note Operative Note Date of Service: 10/10/22 Narrative: Operative Information Procedure Description: Colonoscopy Indication: pos cologuard Anesthesia: MAC COLONOSCOPY Instrument: Olympus variable stiffness pediatric scope 190L Colonoscopy Monitoring: Vital signs and clinical assessment, continuous EKG monitoring, Pulse oximetry, Carbon Dioxide monitoring and blood pressure monitoring were done throughout the procedure. Colon withdrawal time was 13 minutes. Procedure: The patient was placed in the left lateral decubitis position and pre-procedure medications were administered. After a digital rectal examination of the ano-rectum, the video colonoscope was inserted into the rectum and advanced through the colon to the cecum/TI. The colonoscope was slowly withdrawn in a retrograde panoramic fashion and the colon mucosa was carefully examined including a retroflexed view of the rectum. Findings and interventions are described below. Procedure Difficulty: moderate Findings: Terminal Ileum-normal Cecum: 10-11 mm flat polyp lifted wt eleview and then removed with cold snare Ascending Colon: normal Transverse Colon -normal Descending Colon:normal Sigmoid Colon: severe diverticulosis with luminal narrowing Rectum: Retroflexion with small internal hemorrhoids, grade I Anorectum - normal Colon preparation: [place] Bowel Preparation Scale Right colon; 2 Transverse colon: 2 Left colon; 2 (0 = Unprepared colon segment with mucosa not seen due to solid stool that cannot be cleared. 1 = Portion of mucosa of the colon segment seen, but other areas of the colon segment not well seen due to staining, residual stool and/or opaque liquid. 2 = Minor amount of residual staining, small fragments of stool and/or opaque liquid, but mucosa of colon segment seen well. 3 = Entire mucosa of colon segment seen well with no residual staining, small fragments of stool or opaque liquid) Impression and Post Procedure Diagnosis: polyp internal hemorrhoids diverticular disease Plan: High fiber diet leaflet Avoid straining at stool, epsom salts and sitz bath, anusol supps or cream Repeat Colonoscopy in 5 years due to flat polyp or earlier if clinically indicated Above findings were reviewed with the patient and relevant handouts were provided if indicated.
[2022-10-10 08:12] VITALS: BP 85/52; PULSE 66; RESP 16; TEMP 36.1; O2SAT 98
[2022-10-10 08:27] VITALS: BP 109/58; PULSE 60; RESP 16; TEMP 36.1; O2SAT 97
--- NOTE | 2022-10-10 08:32 | HO.POSTANES ---
Post Anesthesia Evaluation Post Anesthesia Evaluation Vital Signs: Vital Signs Temp Pulse Resp BP Pulse Ox O2 Del Method 10/10/22 08:27 97 F 60 16 109/58 L 97 Room Air 10/10/22 08:12 97 F 66 16 85/52 L 98 Room Air 10/10/22 06:37 97.6 F 70 16 121/63 98 Room Air Anesthesia: Monitored Mental Status: Awake Pain Control: Satisfactory Nausea/Vomiting: None Hydration: Adequate Anesthesia-Related Issues: No Anes. Related Issues
== END 2022-10-10 08:59 | disposition home or self-care (01) ==
PROVIDERS: PCP Internal Medicine; Visit Provider Internal Medicine Gastroenterology
PROC: 0DJD8ZZ Inspection of Lower Intestinal Tract, Via Natural or Artificial Opening Endoscopic (ICD-10-PCS; CPT 45378; principal; 2022-10-10 07:30)
DX: R19.5 Other fecal abnormalities (principal); Z86.010 Personal history of colon polyps; D12.0 Benign neoplasm of cecum; K57.30 Diverticulosis of large intestine without perforation or abscess without bleeding; K64.0 First degree hemorrhoids; E27.40 Unspecified adrenocortical insufficiency; E78.5 Hyperlipidemia, unspecified; E03.9 Hypothyroidism, unspecified; E23.0 Hypopituitarism; B18.1 Chronic viral hepatitis B without delta-agent; M81.0 Age-related osteoporosis without current pathological fracture; E55.9 Vitamin D deficiency, unspecified; Z79.899 Other long term (current) drug therapy; Z87.891 Personal history of nicotine dependence; F12.90 Cannabis use, unspecified, uncomplicated; Z86.16 Personal history of COVID-19
CPT/HCPCS: 45385; 45381; 88305

== ENCOUNTER → 2022-10-20 09:15 | Outpatient (BNVA) | payer MEDICARE, SELFPAY | PROVIDERS: PCP Internal Medicine; Visit Provider Nurse Practitioner Family | DX: K57.90 Diverticulosis of intestine, part unspecified, without perforation or abscess without bleeding (principal); D12.6 Benign neoplasm of colon, unspecified; Z98.890 Other specified postprocedural states | CPT/HCPCS: 99212 ==

== ENCOUNTER 2023-02-01 10:23 | Outpatient (REF) | payer MEDICARE, SELFPAY ==
[2023-02-01 14:01] LABS: Osmolality, Serum 295 mosm/kg (281-305)
[2023-02-01 14:57] LABS: Alanine Aminotransferase 19 U/L (0-31); Alkaline Phosphatase 42 U/L (39-117); Anion Gap 12 (12-20); Aspartate Amino Transferase 21 U/L (5-31); Bilirubin Total 0.6 mg/dL (0.0-1.0); Blood Urea Nitrogen 14 mg/dL (9-16); Calcium 9.4 mg/dL (8.4-10.2); Carbon Dioxide 27 mmol/L (22-29); Chloride 106 mmol/L (96-108); Estimated Glomerular Filt Rate 59; Glucose Random 82 mg/dL (60-115); Phosphorus 3.2 mg/dL (2.7-4.5); Potassium 4.1 mmol/L (3.3-5.1); Sodium 141 mmol/L (135-145); Total Protein 7.1 g/dL (6.5-8.0)
[2023-02-01 14:59] LABS: Free T4 (Free Thyroxine) 1.25 ng/dL (0.71-1.85); Thyroid Stimulating Hormone 0.96 uIU/mL (0.32-4.0); Vitamin D 25-OH Total 47.9 ng/mL (>30)
[2023-02-03 08:18] LABS: Triiodothyronine T3 Total 109 ng/dL (76-181)
[2023-02-05 14:58] LABS: Calcium (PTHI) 9.1 mg/dL (8.6-10.4); PTHI 74 pg/mL (16-77)
[2023-02-06 23:13] LABS: Prolactin Undiluted 7.6 ng/mL
[2023-02-11 13:43] LABS: IGF-1 (Somatomedin C) 59 ng/mL (41-279); IGF-1 Z Score (Female) -1.2 SD (-2.0 - +2.0)
== END 2023-02-01 10:24 | disposition home or self-care (01) ==
LOC: HO.HMGCLDS 10:23
PROVIDERS: PCP Internal Medicine; Visit Provider Internal Medicine
DX: D35.2 Benign neoplasm of pituitary gland (principal); M81.0 Age-related osteoporosis without current pathological fracture; E55.9 Vitamin D deficiency, unspecified
CPT/HCPCS: 36415; 80053; 82306; 83930; 83970; 84100; 84146; 84305; 84439; 84443; 84480

== ENCOUNTER 2023-02-05 08:57 | Outpatient (REF) | payer MEDICARE, SELFPAY ==
[2023-02-10 13:58] LABS: Adrenocorticotropic Hormone 30 pg/mL (6-50)
== END 2023-02-05 08:58 | disposition home or self-care (01) ==
LOC: HO.LAB 08:57
PROVIDERS: PCP Internal Medicine; Visit Provider Internal Medicine
DX: D35.2 Benign neoplasm of pituitary gland (principal)
CPT/HCPCS: 36415; 82024

== ENCOUNTER 2023-02-19 08:28 | Outpatient (AMB) | payer MEDICARE, SELFPAY ==
--- NOTE | 2023-02-19 08:29 | MHC.OFFVIS ---
Intake Intake Visit Reasons: Pituitary microadenoma/Osteoporosis 1 hour per md Intake Note: Pituitary Microadenoma and Osteoporosis follow up visit. 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 She was previously followed by Dr. Ching. 1) Osteoporosis: First diagnosed in 2017 with her DEXA revealing Osteoporosis of the Hip. She was started on Alendronate 12/03/2018, but we stopped this after her initial visit in order to complete a full workup for secondary causes of Osteoporosis. She stopped this as of 05/2021. She does have a brother with primary hyperparathyroidism who had a parathyroidectomy. Workup for secondary causes of Osteoporosis was largely WNL, other than Calcium high normal. She does report going through menopause in her early 40's. She used HRT for only 1-2 months after. She remains off alendronate for the time being. No history of pathologic fracture or ONJ. Has 2-3 servings of dietary calcium per day in the form of milk and cheese. Takes Calcium supplement 600 mg daily. Takes 1000 IU of Vitamin D daily. She does have adrenal insufficiency and uses Hydrocortisone 5 mg PO q am and 2 mg PO q pm. Denies ever using PPI, anticoagulant, or antiepileptic medication. Does no scheduled exercise. 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 Menses were always regular. . Did not breastfeed. Menopause was age 51. Denies any HRT. Denies history of Kidney stones: Does have a family history of Osteoporosis in his Brother and his Sister. His Brother had hyperparathyroidism and suffered a hip fracture. UTD on dental cleanings and sees dentist every 6 months. No planned upcoming dental work or extractions. 2) Adrenal Insufficiency: She was initially diagnosed with adrenal insufficiency in [address] Lui. She was having frequent admissions for hyponatremia. 07/04/2016 she underwent cosyntropin stim testing which was inappropriate. She was diagnosed with adrenal insufficiency and was started on hydrocortisone. She remains on 5 mg PO q am and 2.5 mg PO q pm. She did have multiple admissions over the past few months for adrenal crisis. These both occurred after febrile illnesses where she did not follow sick day rules. 3) Pituitary Microadenoma. She had a pituitary MRI which revealed a 4 mm pituitary microadenoma. Pituitary panel was WNL. 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 She remains on levothyroxine 100 mcg PO daily and takes this correctly. Thyroid US was completely WNL. She denies any compressive symptoms. She denies symptoms of hyper or hypothyroidism. She denies a family history of thyroid cancer. DXA: 07/19/2022 FINDINGS: AP SPINE L1-L4: Current: BMD 1.188 g/cm2, Z-score 1.5, T-score 0.1, normal, 3.1% increase from previous, 8.9% increase from baseline (<5% change is not significant). Prior: BMD 1.152 g/cm2. Baseline: BMD 1.091 g/cm2. LEFT FEMUR, NECK: Current: BMD 0.700 g/cm2, Z-score -0.9, T-score -2.4, osteopenia. Prior: BMD 0.716 g/cm2. Baseline: BMD 0.821 g/cm2. LEFT FEMUR, TOTAL: Current: BMD 0.824 g/cm2, Z-score -0.2, T-score -1.5, osteopenia, 0.8% decrease from previous, 11.5% decrease from baseline (<5% change is not significant). Prior: BMD 0.831 g/cm2. Baseline: BMD 0.931 g/cm2. Pituitary MRI: 07/24/2022 FINDINGS: There is an area of decreased differential enhancement the anterior lobe of the pituitary gland in the midline which measures 4.0 x 2.0 x 2.0 mm in AP, transverse and craniocaudal dimensions. This measured 5.0 x 4.0 x 2.0 cm on the prior study. The infundibulum is midline. The cavernous sinuses opacify symmetrically. The internal carotid artery flow-voids are maintained. The optic chiasm is normal. No suprasellar soft tissue abnormality is seen. The sella turcica is normal. No diffusion abnormalities are identified to suggest an acute or subacute infarct. The ventricles and sulci are slightly commensurately prominent consistent with diffuse volume loss. Brain parenchymal signal is unremarkable. No mass effect or midline shift is seen. There is no acute or chronic hemorrhage. No extra-axial fluid collections are noted. The brainstem and cerebellum are normal. On postcontrast imaging, there is no other abnormal parenchymal or leptomeningeal enhancement. The craniovertebral junction, marrow signal, and midline structures are normal. The mastoid air cells are well-aerated. There is a retention cyst in the inferior right maxillary sinus. Thyroid US: 06/28/2021 Right Thyroid Lobe: 3.5 x 1.5 x 1.1 cm, volume 3.0 mL. Parenchyma: The gland echotexture is heterogeneous. Thyroid vascularity is normal. Left Thyroid Lobe: 4.2 x 1.7 x 1.0 cm, volume 3.7 mL. Parenchyma: The gland echotexture is heterogeneous. Thyroid vascularity is normal. Isthmus: 0.4 cm in maximum AP dimension. No focal thyroid nodule is seen. NODES: No lymphadenopathy is seen in the tissue surrounding the thyroid gland. Labs: Laboratory Tests 02/01/23 02/01/23 02/01/23 10:34 10:34 10:34 Sodium 141 Potassium 4.1 Creatinine 0.94 Estimated GFR 59 Osmolality 295 25-OH Vitamin D To didi 47.9 TSH 0.96 Free T4 1.25 Total T3 109 Prolactin Undilute d 7.6 Somatomedin-C 59 PTH Intact 74 Calcium (PTH Intac t) 9.1 ACTH 02/05/23 09:13 Sodium Potassium Creatinine Estimated GFR Osmolality 25-OH Vitamin D To didi TSH Free T4 Total T3 Prolactin Undilute d Somatomedin-C PTH Intact Calcium (PTH Intac t) ACTH 30 PFSH Medical History Adrenal cortex insufficiency Adrenal insufficiency Annual physical exam Diverticulosis Hepatitis B Hepatitis B Hyperlipidemia Hypothyroidism Osteoporosis Panhypopituitarism Pituitary microadenoma Sessile serrated polyp of colon Shoulder pain Tick bite Tinnitus Vitamin D deficiency Surgical History History of carpal tunnel surgery Hx of colonoscopy Family History Father No problems noted. Mother No problems noted. Brother Hyperparathyroidism Sister Osteoporosis Social History Household Members: Spouse Housing: House Do you presently have visiting nurse or other home services: No Alcohol intake: former Patient Tobacco Use Status: Former Tobacco user Cigarette Packs Per Day: 1 Years Smoked: 25 e-Cigarette/Vaping Use: Never Used Substance Use Type: Marijuana service: No Current occupational status: retired Cognitive needs: No Hearing needs: No Vision needs: Yes Assessment & Plan Assessment & Plan (1) Adrenal insufficiency: Comment: brain MRI 07/05 no pituitary mass, f/u [facility] [place] endo on Hydrocortisone Code(s): E27.40 - Unspecified adrenocortical insufficiency Plan: Patient with adrenal insufficiency, currently on hydrocortisone 10 mg PO q am and 5 mg PO q pm. She did have 2 admissions over the past few months for adrenal crisis, after she developed febrile illness from influenza and then covid and did not follow sick day rules. I advised her to change her sick day rules to double her dose if she is ever feeling unwell, and continue the doubled dose for 3 days, and to return to her usual dose only if feeling better. If she has a fever of any degree she should triple her dose, and continue for 3 days. If fever has not resolved in 3 days she should continue the higher dose longer and notify our office. I advised if she is nauseous or vomiting she should use her solucortef emergency injection kit and present immediately to the ED. I have also set her up for teaching with our nurse to review how to use her act-o-vial. Since making these changes she has not had any further hospitalizations. She does have her emergency alert medical ID bracelet. She will then F/U in 6 months time with labs prior. All questions were answered. She is in agreement with this plan of care. I spent 20 minutes in reviewing the record, seeing the patient and documenting in the medical record, including 5 minutes on the phone with the patient. (2) Osteoporosis: Code(s): M81.0 - Age-related osteoporosis without current pathological fracture Qualifiers: Osteoporosis type: age-related Presence of current pathological fracture: without current pathological fracture Qualified Code(s): M81.0 - Age-related osteoporosis without current pathological fracture Plan: Patient with Osteopenia. Frax score is 21% for 10 year risk of a major osteoporotic fracture and 5.6% for a 10 year risk of a hip fracture. This does meet indication for treatment. We reviewed this in detail today. Workup for secondary causes of Osteoporosis was WNL. She remains on alendronate. She previously completed 1.5 years of treatment, and stopped this as of 05/2021. We discussed potential ADRs of flu like symptoms with body aches, osteonecrosis of the jaw and atypical fracture. All questions were answered. She is optimized on Calcium and Vitamin D. 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 FT4 and TT3 WNL. Will continue with levothyroxine 100 mcg PO daily. (4) Vitamin D deficiency: Code(s): E55.9 - Vitamin D deficiency, unspecified Plan: Vitamin D at goal. No changes. (5) Pituitary microadenoma: Code(s): D35.2 - Benign neoplasm of pituitary gland Plan: Patient with a 4 mm pituitary microadenoma. Due for repeat imaging 07/2023. 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 Will repeat her full pituitary panel in 6 months time and she will F/U thereafter. Telehealth Telehealth Location of provider rendering services: practice address Location of patient: address on file Patient Identification confirmed using: Name, : Yes Telehealth method: voice only Patient verbally consented to treatment: Yes Patient verbally consented to billing insurance company: Yes Patient informed of any privacy concerns related to visit: Yes Coding Level of Care Code Tele Est Pt Level 3 (20662) Diagnoses Adrenal insufficiency E27.40 Osteoporosis M81.0 Osteoporosis type: age-related Presence of current pathological fracture: without current pathological fracture Hypothyroidism E03.8; E06.3 Hypothyroidism type: due to Adam's thyroiditis Vitamin D deficiency E55.9 Pituitary microadenoma D35.2 Panhypopituitarism E23.0
== END 2023-02-19 10:12 | disposition home or self-care (01) ==
LOC: HO.ENCR 08:28
PROVIDERS: PCP Internal Medicine; Visit Provider Internal Medicine
DX: E27.40 Unspecified adrenocortical insufficiency (principal); M81.0 Age-related osteoporosis without current pathological fracture; E03.8 Other specified hypothyroidism; E06.3 Autoimmune thyroiditis; E55.9 Vitamin D deficiency, unspecified; D35.2 Benign neoplasm of pituitary gland; E23.0 Hypopituitarism
CPT/HCPCS: 99443

== ENCOUNTER → 2023-02-19 08:28 | Outpatient (BNVA) | payer MEDICARE, SELFPAY | PROVIDERS: PCP Internal Medicine; Visit Provider Internal Medicine ==

== ENCOUNTER 2023-05-21 08:55 | Outpatient (REF) | payer MEDICARE, SELFPAY ==
[2023-05-21 10:54] LABS: Cortisol Random 6.8 ug/dL
== END 2023-05-21 08:56 | disposition home or self-care (01) ==
LOC: HO.LAB 08:55
PROVIDERS: PCP Internal Medicine; Visit Provider Internal Medicine
DX: D35.2 Benign neoplasm of pituitary gland (principal)
CPT/HCPCS: 36415; 82533

== ENCOUNTER 2023-05-24 10:59 | Outpatient (AMB) | payer MEDICARE, SELFPAY ==
[2023-05-24 11:01] VITALS: BP 124/60; PULSE 58; BMI 30.9
--- NOTE | 2023-05-24 11:01 | A.OFFVIS_ITS ---
Intake Vital Signs 05/24/23 11:01 Height 5 ft 2 in Weight 168 lb 13.985 oz BMI 30.9 BP 124/60 Blood Pressure Location Lt brachial Position Sitting Pulse 58 Pulse Source Pulse Oximeter Intake Visit Reasons: Pituitary microadenoma/Osteoporosis Intake Note: New patient to Dr. Moran present today for Pituitary Microadenoma and Osteoporosis. Previously followed by Dr. Loco. 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 She was previously followed by Dr. Ching.. Patient last saw Dr. Loco on 02/19/2023 1) Osteoporosis: First diagnosed in 2017 with her DEXA revealing Osteoporosis of the Hip. She was started on Alendronate 12/03/2018, but we stopped this after her initial visit in order to complete a full workup for secondary causes of Osteoporosis. She stopped this as of 05/2021. She does have a brother with primary hyperparathyroidism who had a parathyroidectomy. Workup for secondary causes of Osteoporosis was largely WNL, other than Calcium high normal. She does report going through menopause in her early 40's. She used HRT for only 1-2 months after. She remains off alendronate for the time being. No history of pathologic fracture or ONJ. Has 2-3 servings of dietary calcium per day in the form of milk and cheese. Takes Calcium supplement 600 mg daily. Takes 1000 IU of Vitamin D daily. She does have adrenal insufficiency and uses Hydrocortisone 5 mg PO q am and 2 mg PO q pm. Denies ever using PPI, anticoagulant, or antiepileptic medication. Does no scheduled exercise. 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 Menses were always regular. . Did not breastfeed. Menopause was age 51. Denies any HRT. Denies history of Kidney stones: Does have a family history of Osteoporosis in his Brother and his Sister. His Brother had hyperparathyroidism and suffered a hip fracture. UTD on dental cleanings and sees dentist every 6 months. No planned upcoming dental work or extractions. 2) Adrenal Insufficiency: She was initially diagnosed with adrenal insufficiency in [address] Lui. She was having frequent admissions for hyponatremia. 07/04/2016 she underwent cosyntropin stim testing which was inappropriate. She was diagnosed with adrenal insufficiency and was started on hydrocortisone. She remains on 5 mg PO q am and 2.5 mg PO q pm. She did have multiple admissions over the past few months for adrenal crisis. These both occurred after febrile illnesses where she did not follow sick day rules. 3) Pituitary Microadenoma. She had a pituitary MRI which revealed a 4 mm pituitary microadenoma. Pituitary panel was WNL. 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 She remains on levothyroxine 100 mcg PO daily and takes this correctly. Thyroid US was completely WNL. She denies any compressive symptoms. She denies symptoms of hyper or hypothyroidism. She denies a family history of thyroid cancer. DXA: 07/19/2022 FINDINGS: AP SPINE L1-L4: Current: BMD 1.188 g/cm2, Z-score 1.5, T-score 0.1, normal, 3.1% increase from previous, 8.9% increase from baseline (<5% change is not significant). Prior: BMD 1.152 g/cm2. Baseline: BMD 1.091 g/cm2. LEFT FEMUR, NECK: Current: BMD 0.700 g/cm2, Z-score -0.9, T-score -2.4, osteopenia. Prior: BMD 0.716 g/cm2. Baseline: BMD 0.821 g/cm2. LEFT FEMUR, TOTAL: Current: BMD 0.824 g/cm2, Z-score -0.2, T-score -1.5, osteopenia, 0.8% decrease from previous, 11.5% decrease from baseline (<5% change is not significant). Prior: BMD 0.831 g/cm2. Baseline: BMD 0.931 g/cm2. Pituitary MRI: 07/24/2022 FINDINGS: There is an area of decreased differential enhancement the anterior lobe of the pituitary gland in the midline which measures 4.0 x 2.0 x 2.0 mm in AP, transverse and craniocauda l dimensions. This measured 5.0 x 4.0 x 2.0 cm on the prior study. The infundibulum is midline. The cavernous sinuses opacify symmetrically. The internal carotid artery flow-voids are maintained. The optic chiasm is normal. No suprasellar soft tissue abnormality is seen. The sella turcica is normal. No diffusion abnormalities are identified to suggest an acute or subacute infarct. The ventricles and sulci are slightly commensurately prominent consistent with diffuse volume loss. Brain parenchymal signal is unremarkable. No mass effect or midline shift is seen. There is no acute or chronic hemorrhage. No extra-axial fluid collections are noted. The brainstem and cerebellum are normal. On postcontrast imaging, there is no other abnormal parenchymal or leptomeningeal enhancement. The craniovertebral junction, marrow signal, and midline structures are normal. The mastoid air cells are well-aerated. There is a retention cyst in the inferior right maxillary sinus. Thyroid US: 06/28/2021 Right Thyroid Lobe: 3.5 x 1.5 x 1.1 cm, volume 3.0 mL. Parenchyma: The gland echotexture is heterogeneous. Thyroid vascularity is normal. Left Thyroid Lobe: 4.2 x 1.7 x 1.0 cm, volume 3.7 mL. Parenchyma: The gland echotexture is heterogeneous. Thyroid vascularity is normal. Isthmus: 0.4 cm in maximum AP dimension. No focal thyroid nodule is seen. NODES: No lymphadenopathy is seen in the tissue surrounding the thyroid gland. Labs: Laboratory Tests 02/01/23 02/01/23 02/01/23 10:34 10:34 10:34 Sodium 141 Potassium 4.1 Creatinine 0.94 Estimated GFR 59 Osmolality 295 25-OH Vitamin D To didi 47.9 TSH 0.96 Free T4 1.25 Total T3 109 Prolactin Undilute d 7.6 Somatomedin-C 59 PTH Intact 74 Calcium (PTH Intac t) 9.1 ACTH 02/05/23 09:13 Sodium Potassium Creatinine Estimated GFR Osmolality 25-OH Vitamin D To didi TSH Free T4 Total T3 Prolactin Undilute d Somatomedin-C PTH Intact Calcium (PTH Intac t) ACTH 30 PFSH Medical History Adrenal cortex insufficiency Adrenal insufficiency Annual physical exam Diverticulosis Hepatitis B Hepatitis B Hyperlipidemia Hypothyroidism Osteoporosis Panhypopituitarism Pituitary microadenoma Sessile serrated polyp of colon Shoulder pain Tick bite Tinnitus Vitamin D deficiency Surgical History History of carpal tunnel surgery Hx of colonoscopy Family History Father No problems noted. Mother No problems noted. Brother Hyperparathyroidism Sister Osteoporosis Social History Household Members: Spouse Housing: House Do you presently have visiting nurse or other home services: No Alcohol intake: former Patient Tobacco Use Status: Former Tobacco user Cigarette Packs Per Day: 1 Years Smoked: 25 e-Cigarette/Vaping Use: Never Used Substance Use Type: Marijuana service: No Current occupational status: retired Cognitive needs: No Hearing needs: No Vision needs: Yes Physical Exam Const Other: Thyroid gland is normal size weighs about 15 g. There are no thyroid nodules palpated Assessment & Plan Assessment & Plan (1) Adrenal insufficiency: Comment: brain MRI 07/05 no pituitary mass, f/u [facility] [place] endo on Hydrocortisone Code(s): E27.40 - Unspecified adrenocortical insufficiency Plan: This 67-year-old white female with a history of secondary adrenal insufficiency currently replaced on hydrocortisone 5 mg in the a.m. and 2 mg in the p.m.. She appears to be doing clinically well. Plan is to continue the current management (2) Pituitary microadenoma: Code(s): D35.2 - Benign neoplasm of pituitary gland Plan: Incidental finding of micro adenoma pituitary lesion with negative workup. Recent MRI shows no change in the size of the micro adenoma No need for further follow-up (3) Hypothyroidism: Code(s): E03.9 - Hypothyroidism, unspecified Qualifiers: Hypothyroidism type: due to Adam's thyroiditis Qualified Code(s): E03.8 - Other specified hypothyroidism; E06.3 - Autoimmune thyroiditis Plan: History of Adam's thyroiditis and primary hypothyroidism be replaced on 100 mcg levothyroxine. Appears to be clinically biochemically euthyroid. Plan is to continue the current management (4) Osteoporosis: Code(s): M81.0 - Age-related osteoporosis without current pathological fracture Qualifiers: Osteoporosis type: age-related Presence of current pathological fra cture: without current pathological fracture Qualified Code(s): M81.0 - Age- related osteoporosis without current pathological fracture Plan: Currently on alendronate, vitamin-D and calcium supplementation. Recent DEXA bone density was stable Will continue current management Coding Level of Care Code Est Pt Level 3 (11666) Diagnoses Adrenal insufficiency E27.40 Pituitary microadenoma D35.2 Hypothyroidism due to Adam's thyroiditis E03.8; E06.3 Hypothyroidism type: due to Adam's thyroiditis Age-related osteoporosis without current pathological fracture M81.0 Osteoporosis type: age-related Presence of current pathological fracture: without current pathological fracture
== END 2023-05-24 11:32 | disposition home or self-care (01) ==
PROVIDERS: PCP Internal Medicine; Visit Provider Internal Medicine Endocrinology, Diabetes & Metabolism
DX: E27.40 Unspecified adrenocortical insufficiency (principal); D35.2 Benign neoplasm of pituitary gland; E03.8 Other specified hypothyroidism; E06.3 Autoimmune thyroiditis; M81.0 Age-related osteoporosis without current pathological fracture
CPT/HCPCS: 99213

== ENCOUNTER → 2023-05-24 10:59 | Outpatient (BNVA) | payer MEDICARE, SELFPAY | PROVIDERS: PCP Internal Medicine; Visit Provider Internal Medicine Endocrinology, Diabetes & Metabolism | DX: E27.40 Unspecified adrenocortical insufficiency (principal); E03.8 Other specified hypothyroidism; E06.3 Autoimmune thyroiditis; D35.2 Benign neoplasm of pituitary gland; M81.0 Age-related osteoporosis without current pathological fracture | CPT/HCPCS: 99212 ==

== ENCOUNTER 2023-09-13 11:29 | Outpatient (REF) | payer MEDICARE, SELFPAY ==
[2023-09-13 13:05] LABS: MANUAL DIFF FLAG NO
[2023-09-13 13:13] LABS: Basophils Percent Auto 0.6 % (0-2); Eosinophils Absolute Auto 0.2 X10*3/uL (0.0-0.4); Eosinophils Percent Auto 3.4 % (0-4); Hematocrit 41.6 % (37.0-47.0); Hemoglobin 13.1 g/dl (12.0-16.0); Imm Gran Abs Auto 0.02 X10*3/uL (0.00-0.03); Imm Gran Pct Auto 0.4 % (0.0-0.4); Lymphocytes Absolute Auto 1.1 X10*3/uL (1.2-4.9); Lymphocytes Percent Auto 21.9 % (20-40); Mean Corpuscular HGB Conc 31.5 g/dl (31.0-35.0); Mean Corpuscular Volume 88.9 fL (80.0-98.0); Mean Platelet Volume 12.6 fL (9.4-12.3); Monocytes Absolute Auto 0.5 X10*3/uL (0.1-1.2); Monocytes Percent Auto 10.1 % (2-11); Neutrophils Absolute Auto 3.2 x10*3/uL (2.0-8.3); Neutrophils Percent Auto 63.6 % (45-73); Platelet Count 184 X10*3/uL (160-400); Red Blood Count 4.68 X10*6/uL (4.20-5.50); Red Cell Distribution Width 12.9 % (11.0-16.0); White Blood Count 5.1 X10*3/uL (4.8-10.8)
[2023-09-13 13:42] LABS: Alanine Aminotransferase 18 U/L (0-31); Albumin Level 4.1 g/dL (3.5-5.0); Alkaline Phosphatase 47 U/L (39-117); Anion Gap 11 (12-20); Aspartate Amino Transferase 19 U/L (5-31); Bilirubin Direct 0.2 mg/dL (0.0-0.5); Bilirubin Total 0.5 mg/dL (0.0-1.0); Blood Urea Nitrogen 18 mg/dL (9-16); Calcium 9.4 mg/dL (8.4-10.2); Carbon Dioxide 28 mmol/L (22-29); Chloride 107 mmol/L (96-108); Estimated Glomerular Filt Rate > 60; Glucose Random 84 mg/dL (60-115); Sodium 142 mmol/L (135-145); Total Protein 7.2 g/dL (6.5-8.0)
[2023-09-14 16:23] LABS: Hepatitis B Viral DNA Qn - cp NOT DETECTED Log IU/mL (NOT DETECTED); Hepatitis B Viral DNA Qn-IU/mL NOT DETECTED (NOT DETECTED)
[2023-09-19 22:38] LABS: Hepatitis Delta Antibody NEGATIVE
[2023-09-20 16:44] LABS: FIB-ALT 16 U/L (6-29); FIB-Alpha-2-Macroglobulin 170 mg/dL (106-279); FIB-Apolipoprotein A1 200 mg/dL (101-198); FIB-GGT 21 U/L (3-65); FIB-Haptoglobin 109 mg/dL (43-212); FIB-Total Bilirubin 0.4 mg/dL (0.2-1.2); Liver Fibrosis Stage F0; Nec Inflam Act Grade A0; Nec Inflam Act Score 0.04
== END 2023-09-13 11:30 | disposition home or self-care (01) ==
LOC: HO.HMGCLDS 11:29
PROVIDERS: PCP Internal Medicine; Visit Provider Internal Medicine
DX: B19.10 Unspecified viral hepatitis B without hepatic coma (principal)
CPT/HCPCS: 36415; 80048; 80076; 81596; 85025; 86692; 87517

== ENCOUNTER → 2023-09-21 13:57 | Outpatient (BNVA) | payer MEDICARE, SELFPAY | PROVIDERS: PCP Internal Medicine; Visit Provider Internal Medicine | DX: B19.10 Unspecified viral hepatitis B without hepatic coma (principal) | CPT/HCPCS: 99212 ==

== ENCOUNTER 2023-09-21 14:24 | Outpatient (AMB) | payer MEDICARE, SELFPAY ==
--- NOTE | 2023-09-21 14:02 | A.OFFVIS_ITS ---
Intake Vital Signs 09/21/23 14:06 Height 5 ft 2 in Weight 171 lb BMI 31.3 Pulse 63 Pulse Source Pulse Oximeter Pulse Oximetry (%) 98 Intake Visit Reasons: F/U-1 yr.Hep-B Allergies No Known Allergies [No Known Allergies*] Allergy (Verified 09/21/23 14:07) HPI F/U-1 yr.Hep-B HPI Details She feels well She has no dark urine or light stools or liver discomfort. Hepatitis B viral load is undetectable and no Hepatitis D. [facility] Medical History Sessile serrated polyp of colon Diverticulosis Panhypopituitarism Pituitary microadenoma Hepatitis B Annual physical exam Tinnitus Vitamin D deficiency Adrenal insufficiency Hyperlipidemia Tick bite Shoulder pain Hepatitis B Osteoporosis Hypothyroidism Adrenal cortex insufficiency Surgical History Hx of colonoscopy History of carpal tunnel surgery Family History Father No problems noted. Mother No problems noted. Brother Hyperparathyroidism Sister Osteoporosis Social History Household Members: Spouse Housing: House Do you presently have visiting nurse or other home services: No Alcohol intake: former Patient Tobacco Use Status: Former Tobacco user Cigarette Packs Per Day: 1 Years Smoked: 25 e-Cigarette/Vaping Use: Never Used Substance Use Type: Marijuana service: No Current occupational status: retired Cognitive needs: No Hearing needs: No Vision needs: Yes Review of Systems Const All systems reviewed & are unremarkable except as noted in HPI and below Physical Exam Vital Signs: Last Vital Signs Pulse 63 09/21/23 14:06 Pulse Ox 98 09/21/23 14:06 BMI result Body Mass Index 31.3 Const General: cooperative Orientation/consciousness: patient oriented x3 HEENT Head: Yes normal to inspection Mouth: Normal oral and palatal mucosa present Eyes General: appearance normal, both eyes and all related structures Pupils: Equal, round and reactive pupils present Resp Effort & Inspection: normal respiratory effort Cardio Rate: regular rate Rhythm: regular rhythm GI Palpation (GI): Soft to palpation and nontender General: Yes no CVA tenderness Back/Spine/Pelvis Back: no CVA tenderness Skin General skin exam: no rashes or lesions noted Neuro General: patient oriented x3 Cranial nerves: Yes CN's II-XII intact bilaterally and Yes Equal, round and reactive pupils present Extrem General: Yes normal to inspection Psych Appearance: grossly normal Assessment & Plan Assessment & Plan (1) Hepatitis B: Comment: She has been doing well with no increase in steroids or immunosuppressive medication Code(s): B19.10 - Unspecified viral hepatitis B without hepatic coma Plan: Check labs in one year and see her. No medication. Orders: Orders Hepatitis Delta Antibody 1 Year B19.10 - Unspecified viral hepatitis B without hepatic coma Liver Panel 1 Year B19.10 - Unspecified viral hepatitis B without hepatic coma Liver Fibrosis Pnl 1 Year B19.10 - Unspecified viral hepatitis B without hepatic coma US abdomen wu w elastography 1 Year B19.10 - Unspecified viral hepatitis B without hepatic coma Hepatitis B Viral DNA Qn 1 Year B19.10 - Unspecified viral hepatitis B without hepatic coma Coding Level of Care Code Est Pt Level 3 (70304) Diagnoses Hepatitis B B19.10
[2023-09-21 14:06] VITALS: PULSE 63; O2SAT 98; BMI 31.3
== END 2023-09-21 14:47 | disposition home or self-care (01) ==
PROVIDERS: PCP Internal Medicine; Visit Provider Internal Medicine
DX: B19.10 Unspecified viral hepatitis B without hepatic coma (principal)
CPT/HCPCS: 99213

== ENCOUNTER 2023-11-09 11:22 | Outpatient (REF) | payer MEDICARE, SELFPAY ==
[2023-11-09 14:19] LABS: Thyroid Stimulating Hormone 0.16 uIU/mL (0.32-4.0)
== END 2023-11-09 11:23 | disposition home or self-care (01) ==
LOC: HO.HMGCLDS 11:22
PROVIDERS: PCP Internal Medicine; Visit Provider Internal Medicine Endocrinology, Diabetes & Metabolism
DX: E03.8 Other specified hypothyroidism (principal); E06.3 Autoimmune thyroiditis
CPT/HCPCS: 36415; 84439; 84443

== ENCOUNTER 2023-11-13 10:00 | Outpatient (AMB) | payer MEDICARE, SELFPAY ==
--- NOTE | 2023-11-13 10:01 | MHC.OFFVIS ---
Vital Signs 11/13/23 10:03 Height 5 ft 2 in Weight 166 lb 14.239 oz BMI 30.5 BP 118/56 L Blood Pressure Location Lt brachial Position Sitting Pulse 94 Pulse Source Pulse Oximeter Intake Visit Reasons: Pituitary microadenoma/Osteoporosis Intake Note: Patient present today for Pituitary microadenoma/Osteoporosis follow up visit. 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 She was previously followed by Dr. Ching.. 1) Osteoporosis: First diagnosed in 2017 with her DEXA revealing Osteoporosis of the Hip. She was started on Alendronate 12/03/2018, but we stopped this after her initial visit in order to complete a full workup for secondary causes of Osteoporosis. She stopped this as of 05/2021. She does have a brother with primary hyperparathyroidism who had a parathyroidectomy. Workup for secondary causes of Osteoporosis was largely WNL, other than Calcium high normal. She does report going through menopause in her early 40's. She used HRT for only 1-2 months after. She remains on alendronate for the time being.On alendronate for >5 yrs No history of pathologic fracture or ONJ. Has 2-3 servings of dietary calcium per day in the form of milk and cheese. Takes Calcium supplement 600 mg daily. Takes 1000 IU of Vitamin D daily. She does have adrenal insufficiency and uses Hydrocortisone 5 mg PO q am and 5 mg PO q pm. Denies ever using PPI, anticoagulant, or antiepileptic medication. Does no scheduled exercise. 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 Menses were always regular. . Did not breastfeed. Menopause was age 51. Denies any HRT. Denies history of Kidney stones: Does have a family history of Osteoporosis in his Brother and his Sister. His Brother had hyperparathyroidism and suffered a hip fracture. UTD on dental cleanings and sees dentist every 6 months. No planned upcoming dental work or extractions. 2) Adrenal Insufficiency: She was initially diagnosed with adrenal insufficiency in [address] Lui. She was having frequent admissions for hyponatremia. 07/04/2016 she underwent cosyntropin stim testing which was inappropriate. She was diagnosed with adrenal insufficiency and was started on hydrocortisone. She remains on 5 mg PO q am and 5 mg PO q pm. She did have multiple admissions over the past few months for adrenal crisis. These both occurred after febrile illnesses where she did not follow sick day rules. 3) Pituitary Microadenoma. She had a pituitary MRI which revealed a 4 mm pituitary microadenoma. Pituitary panel was WNL. 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 She remains on levothyroxine 100 mcg PO daily and takes this correctly. Thyroid US was completely WNL. She denies any compressive symptoms. She denies symptoms of hyper or hypothyroidism. She denies a family history of thyroid cancer. DXA: 07/19/2022 FINDINGS: AP SPINE L1-L4: Current: BMD 1.188 g/cm2, Z-score 1.5, T-score 0.1, normal, 3.1% increase from previous, 8.9% increase from baseline (<5% change is not significant). Prior: BMD 1.152 g/cm2. Baseline: BMD 1.091 g/cm2. LEFT FEMUR, NECK: Current: BMD 0.700 g/cm2, Z-score -0.9, T-score -2.4, osteopenia. Prior: BMD 0.716 g/cm2. Baseline: BMD 0.821 g/cm2. LEFT FEMUR, TOTAL: Current: BMD 0.824 g/cm2, Z-score -0.2, T-score -1.5, osteopenia, 0.8% decrease from previous, 11.5% decrease from baseline (<5% change is not significant). Prior: BMD 0.831 g/cm2. Baseline: BMD 0.931 g/cm2. Pituitary MRI: 07/24/2022 FINDINGS: There is an area of decreased differential enhancement the anterior lobe of the pituitary gland in the midline which measures 4.0 x 2.0 x 2.0 mm in AP, transverse and craniocaudal dimensions. This measured 5.0 x 4.0 x 2.0 cm on the prior study. The infundibulum is midline. The cavernous sinuses opacify symmetrically. The internal carotid artery flow-voids are maintained. The optic chiasm is normal. No suprasellar soft tissue abnormality is seen. The sella turcica is normal. No diffusion abnormalities are identified to suggest an acute or subacute infarct. The ventricles and sulci are slightly commensurately prominent consistent with diffuse volume loss. Brain parenchymal signal is unremarkable. No mass effect or midline shift is seen. There is no acute or chronic hemorrhage. No extra-axial fluid collections are noted. The brainstem and cerebellum are normal. On postcontrast imaging, there is no other abnormal parenchymal or leptomeningeal enhancement. The craniovertebral junction, marrow signal, and midline structures are normal. The mastoid air cells are well-aerated. There is a retention cyst in the inferior right maxillary sinus. Thyroid US: 06/28/2021 Right Thyroid Lobe: 3.5 x 1.5 x 1.1 cm, volume 3.0 mL. Parenchyma: The gland echotexture is heterogeneous. Thyroid vascularity is normal. Left Thyroid Lobe: 4.2 x 1.7 x 1.0 cm, volume 3.7 mL. Parenchyma: The gland echotexture is heterogeneous. Thyroid vascularity is normal. Isthmus: 0.4 cm in maximum AP dimension. No focal thyroid nodule is seen. NODES: No lymphadenopathy is seen in the tissue surrounding the thyroid gland. Labs: Laboratory Tests 02/01/23 02/01/23 02/01/23 10:34 10:34 10:34 Sodium 141 Potassium 4.1 Creatinine 0.94 Estimated GFR 59 Osmolality 295 25-OH Vitamin D Total 47.9 TSH 0.96 Free T4 1.25 Total T3 109 Prolactin Undiluted 7.6 Somatomedin-C 59 PTH Intact 74 Calcium (PTH Intact) 9.1 ACTH 02/05/23 09:13 Sodium Potassium Creatinine Estimated GFR Osmolality 25-OH Vitamin D Total TSH Free T4 Total T3 Prolactin Undiluted Somatomedin-C PTH Intact Calcium (PTH Intact) ACTH 30 PFSH Medical History Sessile serrated polyp of colon Diverticulosis Panhypopituitarism Pituitary microadenoma Hepatitis B Annual physical exam Tinnitus Vitamin D deficiency Adrenal insufficiency Hyperlipidemia Tick bite Shoulder pain Hepatitis B Osteoporosis Hypothyroidism Adrenal cortex insufficiency Surgical History Hx of colonoscopy History of carpal tunnel surgery Family History Father No problems noted. Mother No problems noted. Brother Hyperparathyroidism Sister Osteoporosis Social History Household Members: Spouse Housing: House Do you presently have visiting nurse or other home services: No Alcohol intake: former Patient Tobacco Use Status: Former Tobacco user Cigarette Packs Per Day: 1 Years Smoked: 25 e-Cigarette/Vaping Use: Never Used Substance Use Type: Marijuana service: No Current occupational status: retired Cognitive needs: No Hearing needs: No Vision needs: Yes Physical Exam Vital Signs: Last Vital Signs Pulse 94 11/13/23 10:03 BP 118/56 L 11/13/23 10:03 BMI result Body Mass Index 30.5 Const Other: Thyroid gland is normal size weighs about 15 g. There are no thyroid nodules palpated Assessment & Plan Assessment & Plan (1) Adrenal insufficiency: Comment: brain MRI 07/05 no pituitary mass, f/u [facility] endo on Hydrocortisone Code(s): E27.40 - Unspecified adrenocortical insufficiency Category: Medical Plan: This 67-year-old white female with a history of secondary adrenal insufficiency currently replaced on hydrocortisone 5 mg in the a.m. and 2.5 mg in the p.m.. She appears to be doing clinically well. Plan is to continue the current management (2) Pituitary microadenoma: Code(s): D35.2 - Benign neoplasm of pituitary gland Category: Medical Plan: Incidental finding of micro adenoma pituitary lesion with negative workup. Recent MRI shows no change in the size of the micro adenoma No need for further follow-up (3) Hypothyroidism: Code(s): E03.9 - Hypothyroidism, unspecified Category: Medical Qualifiers: Hypothyroidism type: due to Russel's thyroiditis Qualified Code(s): E03.8 - Other specified hypothyroidism; E06.3 - Autoimmune thyroiditis Plan: History of Russel's thyroiditis and primary hypothyroidism be replaced on 100 mcg levothyroxine. Appears to be clinically euthyroid but has a suppressed TSH. Plan is to decrease levothyroxine to 88 mcg and recheck TSH and free T4 in 6 weeks time (4) Osteoporosis: Code(s): M81.0 - Age-related osteoporosis without current pathological fracture Category: Medical Qualifiers: Osteoporosis type: age-related Presence of current pathological fracture: without current pathological fracture Qualified Code(s): M81.0 - Age-related osteoporosis without current pathological fracture Plan: Currently on alendronate, vitamin-D and calcium supplementation. Recent DEXA bone density was stable Will start drug holiday have patient hold alendronate. Will check urine NTX in 6 months' time Orders: Orders Free T4 (Free Thyroxine) 6 Weeks E03.8 - Other specified hypothyroidism, E06.3 - Autoimmune thyroiditis Thyroid Stimulating Hormone 6 Weeks E03.8 - Other specified hypothyroidism, E06.3 - Autoimmune thyroiditis Medications: New levothyroxine 88 mcg PO DAILY 30 tabs 5RF Discontinued levothyroxine Discontinued Reason: Doctor's Order 100 mcg PO DAILY 90 days 90 tabs 11RF E03.8 - Other specified hypothyroidism, E06.3 - Autoimmune thyroiditis Coding Level of Care Code Est Pt Level 3 (27885) Diagnoses Adrenal insufficiency E27.40 Pituitary microadenoma D35.2 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; E06.3 Hypothyroidism type: due to Russel's thyroiditis Age-related osteoporosis without current pathological fracture M81.0 Osteoporosis type: age-related Presence of current pathological fracture: without current pathological fracture
[2023-11-13 10:03] VITALS: BP 118/56; PULSE 94; BMI 30.5
== END 2023-11-13 10:17 | disposition home or self-care (01) ==
PROVIDERS: PCP Internal Medicine; Visit Provider Internal Medicine Endocrinology, Diabetes & Metabolism
DX: E27.40 Unspecified adrenocortical insufficiency (principal); D35.2 Benign neoplasm of pituitary gland; E03.8 Other specified hypothyroidism; E06.3 Autoimmune thyroiditis; M81.0 Age-related osteoporosis without current pathological fracture
CPT/HCPCS: 99213

== ENCOUNTER → 2023-11-13 10:00 | Outpatient (BNVA) | payer MEDICARE, SELFPAY | PROVIDERS: PCP Internal Medicine; Visit Provider Internal Medicine Endocrinology, Diabetes & Metabolism | DX: D35.2 Benign neoplasm of pituitary gland (principal); M81.0 Age-related osteoporosis without current pathological fracture; E03.8 Other specified hypothyroidism; E06.3 Autoimmune thyroiditis; E27.40 Unspecified adrenocortical insufficiency | CPT/HCPCS: 99212 ==

== ENCOUNTER 2023-12-05 08:57 | Outpatient (REF) | payer MEDICARE, SELFPAY ==
[2023-12-05 10:11] LABS: MANUAL DIFF FLAG NO
[2023-12-05 10:28] LABS: Basophils Percent Auto 0.8 % (0-2); Eosinophils Absolute Auto 0.1 X10*3/uL (0.0-0.4); Eosinophils Percent Auto 3.3 % (0-4); Hematocrit 39.7 % (37.0-47.0); Hemoglobin 12.6 g/dl (12.0-16.0); Imm Gran Abs Auto 0.01 X10*3/uL (0.00-0.03); Imm Gran Pct Auto 0.3 % (0.0-0.4); Lymphocytes Absolute Auto 1.7 X10*3/uL (1.2-4.9); Lymphocytes Percent Auto 42.5 % (20-40); Mean Corpuscular HGB Conc 31.7 g/dl (31.0-35.0); Mean Corpuscular Hemoglobin 27.9 pg (27.0-33.0); Mean Platelet Volume 12.7 fL (9.4-12.3); Monocytes Absolute Auto 0.4 X10*3/uL (0.1-1.2); Monocytes Percent Auto 10.3 % (2-11); Neutrophils Absolute Auto 1.7 x10*3/uL (2.0-8.3); Neutrophils Percent Auto 42.8 % (45-73); Platelet Count 171 X10*3/uL (160-400); Red Blood Count 4.51 X10*6/uL (4.20-5.50); Red Cell Distribution Width 12.5 % (11.0-16.0)
[2023-12-05 10:55] LABS: Alanine Aminotransferase 17 U/L (0-31); Alkaline Phosphatase 43 U/L (39-117); Anion Gap 12 (12-20); Aspartate Amino Transferase 20 U/L (5-31); Bilirubin Total 0.6 mg/dL (0.0-1.0); Blood Urea Nitrogen 15 mg/dL (9-16); Calcium 9.4 mg/dL (8.4-10.2); Carbon Dioxide 28 mmol/L (22-29); Chloride 105 mmol/L (96-108); Cholesterol 153 mg/dL (<200); Estimated Glomerular Filt Rate > 60; Glucose Fasting 94 mg/dL (60-99); HDL Cholesterol 54 mg/dL (>40); LDL Cholesterol Calculated 81 mg/dL (<100); Potassium 4.2 mmol/L (3.3-5.1); Sodium 141 mmol/L (135-145); Triglycerides 94 mg/dL (<150)
[2023-12-05 11:15] LABS: Vitamin D 25-OH Total 42.1 ng/mL (>30)
== END 2023-12-05 08:58 | disposition home or self-care (01) ==
LOC: HO.HMGCLDS 08:57
PROVIDERS: PCP Internal Medicine; Visit Provider Internal Medicine
DX: E78.5 Hyperlipidemia, unspecified (principal); E55.9 Vitamin D deficiency, unspecified; E03.8 Other specified hypothyroidism; E06.3 Autoimmune thyroiditis
CPT/HCPCS: 36415; 80053; 80061; 82306; 85025

== ENCOUNTER 2023-12-06 08:55 | Outpatient (AMB) | payer MEDICARE, SELFPAY ==
--- NOTE | 2023-12-06 08:59 | A.OFFPC_ITS ---
Vital Signs 12/06/23 09:00 Height 5 ft 2 in Weight 164 lb BMI 30.0 BP 116/58 L Blood Pressure Location Rt brachial Position Sitting Pulse 67 Pulse Source Pulse Oximeter Pulse Oximetry (%) 95 Oxygen Delivery Method Room Air Intake Visit Reasons: Follow up Intake Note: Pt is here today for a follow up visit. Allergies No Known Allergies [No Known Allergies*] Allergy (Verified 12/06/23 09:03) Medication List - Last Reconciled 12/06/23 by Kika Miner MD atorvastatin (Lipitor) 40 mg PO DAILY hydrocortisone 5 mg PO BID levothyroxine 88 mcg PO DAILY ondansetron 4 mg PO Q8H PRN 10 days Tobacco use date assessed: 12/06/23 Fall risk assessment: No Falls in past year Last assessed Fall Risk: 12/06/23 Dental Screening Dental Screen Date: 12/06/23 Did you have a dental visit in the last 12 months?: Yes Did you have a dental problem in the last 6 months where you did not have access to dental care?: No Was dental information given to patient?: Patient has dentist HPI Follow up HPI Details Pt presents for f/u hyperlipid, hypothyroid, osteoporosis, adrenal insu fficiency. Patient is established with endocrinology to manage adrenal insufficiency hypothyroidism and osteoporosis. She was advised to stop alendronate for drug holiday after the last visit with federal judge. [facility] Medical History (Updated 12/06/23 @ 14:40 by Kika Miner MD) Sessile serrated polyp of colon Diverticulosis Pituitary microadenoma Hepatitis B Annual physical exam Tinnitus Vitamin D deficiency Adrenal insufficiency Hyperlipidemia Tick bite Shoulder pain Hepatitis B Osteoporosis Hypothyroidism Adrenal cortex insufficiency Surgical History Hx of colonoscopy History of carpal tunnel surgery Family History Father No problems noted. Mother No problems noted. Brother Hyperparathyroidism Sister Osteoporosis Social History Household Members: Spouse Housing: House Do you presently have visiting nurse or other home services: No Alcohol intake: former Patient Tobacco Use Status: Former Tobacco user Cigarette Packs Per Day: 1 Years Smoked: 25 e-Cigarette/Vaping Use: Never Used Substance Use Type: Marijuana service: No Current occupational status: retired Cognitive needs: No Hearing needs: No Vision needs: Yes Questionnaire PHQ-9 Over the last 2 weeks, how often have you been bothered by any of the following problems? 1. Little interest or pleasure in doing things: not at all 2. Feeling down, depressed, or hopeless: not at all 3. Trouble falling or staying asleep, or sleeping too much: several days 4. Feeling tired or having little energy: not at all 5. Poor appetite or overeating: not at all 6. Feeling bad about yourself - or that you are a failure or have let yourself or your family down: not at all 7. Trouble concentrating on things, such as reading the newspaper or watching television: not at all 8. Moving or speaking so slowly that other people could have noticed. Or the opposite - being so fidgety or restless that you have been moving around a lot more than usual: not at all 9. Thoughts that you would be better off or of hurting yourself in some way: not at all Total score: 1 Depression Screening Interpretation: Negative Depression Screening Done: Yes Source: Developed by Drs. Yobany Johnson, Mery Oconnell, Ishmael Davidson and colleagues, with an educational todd from [employer]. Thrive Questionnaire Date Thrive assessed: 12/06/23 I am a: Patient What is your living situation today?: I have a steady place to live Within the past 12 months, did the food you bought not last and you didn't have the money to get more?: Never true Within the past 12 months, did you worry whether your food would run out before you got money to buy more?: Never true Do you have trouble paying for medicines?: No Do you have trouble getting transportation to medical appointments?: No Do you have trouble paying your heating and electricity bill?: No Do you have trouble taking care of your child, family member or friend?: No Do you have trouble with day-to-day activities such as bathing, preparing meals, shopping, managing finances, etc.?: No Are you currently unemployed and looking for a job?: No Are you interested in more education?: No Please select the resources that you would like help with: None THRIVE Score: 0 AUDIT C Alcohol Use Questionnaire (AUDIT-C) 1. How often do you have a drink containing alcohol?: 2-3 times a week 2. How many drinks containing alcohol do you have on a typical day when you are drinking?: 1 or 2 3. How often do you have six or more drinks on one occasion?: Never Total Score: 3 SINA-7 AMB Questionnaire SINA-7 Date SINA - 7 assessed: 12/06/23 Feeling nervous, anxious, or on edge: 0 = Not at all Not being able to stop or control worryin = Not at all Worrying too much about different things: 0 = Not at all Trouble relaxin = Not at all Being so restless that it is hard to sit still: 0 = Not at all Becoming easily annoyed or irritable: 0 = Not at all Feeling afraid as if something awful might happen: 0 = Not at all Total SINA-7 score (0-4 normal; 5-9 mild; 10-14 moderate; 15-21 severe): 0 Source: Developed by Drs. Yobany Johnson, Mery Oconnell, Ishmael Davidson and colleagues, with an educational todd from [employer]. Review of Systems Const All systems reviewed & are unremarkable except as noted in HPI and below Eyes Reports no additional complaints ENT Reports no additional complaints Card Reports no additional complaints Resp Reports no additional complaints GI Reports no additional complaints Reports no additional complaints Physical exam (Primary Care) Vital Signs: Last Vital Signs Pulse 67 12/06/23 09:00 BP 116/58 L 12/06/23 09:00 Pulse Ox 95 12/06/23 09:00 Oxygen Delivery Method Room Air 12/06/23 09:00 BMI result Body Mass Index 30.0 Tobacco/Smoking Status: Tobacco use Status Tobacco use date assessed 12/06/23 12/06/23 09:05 Patient Tobacco Use Status Former Tobacco user 12/06/23 09:01 e-Cigarette/Vaping Use Never Used 12/06/23 09:01 PHQ-9: PHQ-9 Score PHQ-9: Total score 1 12/06/23 09:50 Depression Screening Interpretation: Negative Thrive Assessment: Date of Thrive Assessment Date Thrive assessed 12/06/23 12/06/23 09:44 Const General: no acute distress HENMT Head: Yes normal to inspection Face and sinus: Yes normal facial exam Eyes General: appearance normal, both eyes and all related structures Neck Neck: Yes supple Resp Effort & Inspection: normal respiratory effort Auscultation: clear to auscultation bilaterally Cardio Rhythm: regular rhythm Heart sounds: S1 normal heart sound present and S2 normal heart sound present GI Inspection: Yes normal to inspection Palpation (GI): Soft to palpation Percussion: Yes normal to percussion Auscultation: normal bowel sounds Assessment and Plan Assessment & Plan (1) Sessile serrated polyp of colon: Comment: Colonoscopy 10/10/2022 Code(s): D12.6 - Benign neoplasm of colon, unspecified Plan: Follow-up with GI for repeat colonoscopy (2) Hyperlipidemia: Code(s): E78.5 - Hyperlipidemia, unspecified Plan: Continue Lipitor (3) Osteoporosis: Comment: alendronate 11/2018 until 09/2023, started drug holiday 10/2023, DEXA 07/2022 T- score lowest -2.4, femoral neck, Code(s): M81.0 - Age-related osteoporosis without current pathological fracture Qualifiers: Osteoporosis type: age-related Presence of current pathological fracture: without current pathological fracture Qualified Code(s): M81.0 - Age- related osteoporosis without current pathological fracture Plan: Continue vitamin-D and calcium supplement regular exercise (4) Hypothyroidism: Comment: Russel's disease on levothyroxine, managed by endocrinology, normal thyroid ultrasound 2022 Code(s): E03.9 - Hypothyroidism, unspecified Qualifiers: Hypothyroidism type: due to Russel's thyroiditis Qualified Code(s): E03.8 - Other specified hypothyroidism; E06.3 - Autoimmune thyroiditis Plan: On levothyroxine (5) Adrenal cortex insufficiency: Comment: On hydrocortisone 5 mg twice a day, follow-up by Endocrinology Code(s): E27.40 - Unspecified adrenocortical insufficiency Plan: Follow-up by Endocrinology Medications: Discontinued alendronate Discontinued Reason: Doctor's Order 70 mg PO QWEEK 12 tabs 12RF E27.40 - Unspecified adrenocortical insufficiency Coding Level of Care Code Est Pt Level 4 (10165) Diagnoses Sessile serrated polyp of colon D12.6 Hyperlipidemia E78.5 Age-related osteoporosis without current pathological fracture M81.0 Osteoporosis type: age-related Presence of current pathological fracture: without current pathological fracture 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; E06.3 Hypothyroidism type: due to Russel's thyroiditis Adrenal cortex insufficiency E27.40
[2023-12-06 09:00] VITALS: BP 116/58; PULSE 67; O2SAT 95
== END 2023-12-06 09:46 | disposition home or self-care (01) ==
LOC: HO.HMGC 08:55
PROVIDERS: PCP Internal Medicine; Visit Provider Internal Medicine
DX: D12.6 Benign neoplasm of colon, unspecified (principal); E78.5 Hyperlipidemia, unspecified; M81.0 Age-related osteoporosis without current pathological fracture; E27.40 Unspecified adrenocortical insufficiency; E03.8 Other specified hypothyroidism; E06.3 Autoimmune thyroiditis
CPT/HCPCS: 99214

== ENCOUNTER 2024-01-03 13:13 | Outpatient (REF) | payer MEDICARE, SELFPAY ==
[2024-01-03 16:35] LABS: Free T4 (Free Thyroxine) 1.05 ng/dL (0.71-1.85); Thyroid Stimulating Hormone 0.44 uIU/mL (0.32-4.0)
== END 2024-01-03 13:14 | disposition home or self-care (01) ==
LOC: HO.HMGCLDS 13:13
PROVIDERS: PCP Internal Medicine; Visit Provider Internal Medicine Endocrinology, Diabetes & Metabolism
DX: E03.8 Other specified hypothyroidism (principal); E06.3 Autoimmune thyroiditis
CPT/HCPCS: 36415; 84439; 84443

== ENCOUNTER 2024-05-14 13:55 | Outpatient (AMB) | payer MEDICARE, SELFPAY ==
--- NOTE | 2024-05-14 13:57 | MHC.OFFVIS ---
Vital Signs 05/14/24 14:00 Height 5 ft 2 in Weight 166 lb 14.239 oz BMI 30.5 BP 126/62 Blood Pressure Location Rt brachial Position Sitting Pulse 74 Pulse Source Pulse Oximeter Intake Visit Reasons: Pituitary microadenoma/Osteoporosis-conf Intake Note: Patient present today for Pituitary microadenoma/Osteoporosis follow up visit. 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 S 1) Osteoporosis: First diagnosed in 2017 with her DEXA revealing Osteoporosis of the Hip. She was started on Alendronate 12/03/2018, but we stopped this after her initial visit in order to complete a full workup for secondary causes of Osteoporosis. She stopped this as of 05/2021. She does have a brother with primary hyperparathyroidism who had a parathyroidectomy. Workup for secondary causes of Osteoporosis was largely WNL, other than Calcium high normal. She does report going through menopause in her early 40's. She used HRT for only 1-2 months after. She remains on alendronate for the time being.On alendronate for >5 yrs No history of pathologic fracture or ONJ. Has 2-3 servings of dietary calcium per day in the form of milk and cheese. Takes Calcium supplement 600 mg daily. Takes 1000 IU of Vitamin D daily. She does have adrenal insufficiency and uses Hydrocortisone 5 mg PO q am and 5 mg PO q pm. Denies ever using PPI, anticoagulant, or antiepileptic medication. Does no scheduled exercise. 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 Menses were always regular. . Did not breastfeed. Menopause was age 51. Denies any HRT. Denies history of Kidney stones: Does have a family history of Osteoporosis in his Brother and his Sister. His Brother had hyperparathyroidism and suffered a hip fracture. UTD on dental cleanings and sees dentist every 6 months. No planned upcoming dental work or extractions. She is currently on a drug holiday. No fx since last visit 2) Adrenal Insufficiency: She was initially diagnosed with adrenal insufficiency in [address] Lui. She was having frequent admissions for hyponatremia. 07/04/2016 she underwent cosyntropin stim testing which was inappropriate. She was diagnosed with adrenal insufficiency and was started on hydrocortisone. She remains on 5 mg PO q am and 5 mg PO q pm. She did have multiple admissions over the past few months for adrenal crisis. These both occurred after febrile illnesses where she did not follow sick day rules. 3) Pituitary Microadenoma. She had a pituitary MRI which revealed a 4 mm pituitary microadenoma. Pituitary panel was WNL.. 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 She remains on levothyroxine 88 mcg PO daily and takes this correctly. Thyroid US was completely WNL. She denies any compressive symptoms. She denies symptoms of hyper or hypothyroidism. She denies a family history of thyroid cancer. DXA: 07/19/2022 FINDINGS: AP SPINE L1-L4: Current: BMD 1.188 g/cm2, Z-score 1.5, T-score 0.1, normal, 3.1% increase from previous, 8.9% increase from baseline (<5% change is not significant). Prior: BMD 1.152 g/cm2. Baseline: BMD 1.091 g/cm2. LEFT FEMUR, NECK: Current: BMD 0.700 g/cm2, Z-score -0.9, T-score -2.4, osteopenia. Prior: BMD 0.716 g/cm2. Baseline: BMD 0.821 g/cm2. LEFT FEMUR, TOTAL: Current: BMD 0.824 g/cm2, Z-score -0.2, T-score -1.5, osteopenia, 0.8% decrease from previous, 11.5% decrease from baseline (<5% change is not significant). Prior: BMD 0.831 g/cm2. Baseline: BMD 0.931 g/cm2. Pituitary MRI: 07/24/2022 FINDINGS: There is an area of decreased differential enhancement the anterior lobe of the pituitary gland in the midline which measures 4.0 x 2.0 x 2.0 mm in AP, transverse and craniocaudal dimensions. This measured 5.0 x 4.0 x 2.0 cm on the prior study. The infundibulum is midline. The cavernous sinuses opacify symmetrically. The internal carotid artery flow-voids are maintained. The optic chiasm is normal. No suprasellar soft tissue abnormality is seen. The sella turcica is normal. No diffusion abnormalities are identified to suggest an acute or subacute infarct. The ventricles and sulci are slightly commensurately prominent consistent with diffuse volume loss. Brain parenchymal signal is unremarkable. No mass effect or midline shift is seen. There is no acute or chronic hemorrhage. No extra-axial fluid collections are noted. The brainstem and cerebellum are normal. On postcontrast imaging, there is no other abnormal parenchymal or leptomeningeal enhancement. The craniovertebral junction, marrow signal, and midline structures are normal. The mastoid air cells are well-aerated. There is a retention cyst in the inferior right maxillary sinus. Thyroid US: 06/28/2021 Right Thyroid Lobe: 3.5 x 1.5 x 1.1 cm, volume 3.0 mL. Parenchyma: The gland echotexture is heterogeneous. Thyroid vascularity is normal. Left Thyroid Lobe: 4.2 x 1.7 x 1.0 cm, volume 3.7 mL. Parenchyma: The gland echotexture is heterogeneous. Thyroid vascularity is normal. Isthmus: 0.4 cm in maximum AP dimension. No focal thyroid nodule is seen. NODES: No lymphadenopathy is seen in the tissue surrounding the thyroid gland. Labs: Laboratory Tests 02/01/23 02/01/23 02/01/23 10:34 10:34 10:34 Sodium 141 Potassium 4.1 Creatinine 0.94 Estimated GFR 59 Osmolality 295 25-OH Vitamin D Total 47.9 TSH 0.96 Free T4 1.25 Total T3 109 Prolactin Undiluted 7.6 Somatomedin-C 59 PTH Intact 74 Calcium (PTH Intact) 9.1 ACTH 02/05/23 09:13 Sodium Potassium Creatinine Estimated GFR Osmolality 25-OH Vitamin D Total TSH Free T4 Total T3 Prolactin Undiluted Somatomedin-C PTH Intact Calcium (PTH Intact) ACTH 30 PFSH Medical History (Updated 12/06/23 @ 14:40 by Kika Miner MD) Sessile serrated polyp of colon Diverticulosis Pituitary microadenoma Hepatitis B Annual physical exam Tinnitus Vitamin D deficiency Adrenal insufficiency Hyperlipidemia Tick bite Shoulder pain Hepatitis B Osteoporosis Hypothyroidism Adrenal cortex insufficiency Surgical History Hx of colonoscopy History of carpal tunnel surgery Family History Father No problems noted. Mother No problems noted. Brother Hyperparathyroidism Sister Osteoporosis Social History Household Members: Spouse Housing: House Do you presently have visiting nurse or other home services: No Alcohol intake: former Patient Tobacco Use Status: Former Tobacco user Cigarette Packs Per Day: 1 Years Smoked: 25 e-Cigarette/Vaping Use: Never Used Substance Use Type: Marijuana service: No Current occupational status: retired Cognitive needs: No Hearing needs: No Vision needs: Yes Physical Exam Const Other: Thyroid gland is normal size weighs about 15 g. There are no thyroid nodules palpated Assessment & Plan Assessment & Plan (1) Adrenal insufficiency: Comment: On hydrocortisone 5 mg twice a day f/u [facility] [place] Code(s): E27.40 - Unspecified adrenocortical insufficiency Category: Medical Plan: This 67-year-old white female with a history of secondary adrenal insufficiency currently replaced on hydrocortisone 5 mg in the a.m. and 5 mg in the p.m.. She appears to be doing clinically well. Plan is to continue the current management (2) Pituitary microadenoma: Comment: 4 mm MR 2023 Code(s): D35.2 - Benign neoplasm of pituitary gland Category: Medical Plan: Incidental finding of micro adenoma pituitary lesion with negative workup. Recent MRI shows no change in the size of the micro adenoma No need for further follow-up (3) Hypothyroidism: Comment: Russel's disease on levothyroxine, managed by endocrinology, normal thyroid ultrasound 2022 Code(s): E03.9 - Hypothyroidism, unspecified Category: Medical Qualifiers: Hypothyroidism type: due to Russel's thyroiditis Qualified Code(s): E03.8 - Other specified hypothyroidism; E06.3 - Autoimmune thyroiditis Plan: History of Russel's thyroiditis and primary hypothyroidism be replaced on 100 mcg levothyroxine. Appears to be clinically euthyroid but has a suppressed TSH. Plan is to recheck TSH and free T4 and adjust levothyroxine (4) Osteoporosis: Comment: alendronate 11/2018 until 09/2023, started drug holiday 10/2023, DEXA 07/2022 T-score lowest -2.4, femoral neck, Code(s): M81.0 - Age-related osteoporosis without current pathological fracture Category: Medical Qualifiers: Osteoporosis type: age-related Presence of current pathological fracture: without current pathological fracture Qualified Code(s): M81.0 - Age-related osteoporosis without current pathological fracture Plan: Currently off alendronate, vitamin-D and calcium supplementation. Will check urine NTX and repeat DEXA in 3 months. Orders: Orders Collagen Crosslinks NTX Today M81.0 - Age-related osteoporosis without current pathological fracture XR DEXA axial skeleton 3 Months M81.0 - Age-related osteoporosis without current pathological fracture Medications: Refilled hydrocortisone 5 mg PO BID 270 tabs 11RF Coding Level of Care Code Est Pt Level 3 (71624) Diagnoses Adrenal insufficiency E27.40 Pituitary microadenoma D35.2 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; E06.3 Hypothyroidism type: due to Russel's thyroiditis Age-related osteoporosis without current pathological fracture M81.0 Osteoporosis type: age-related Presence of current pathological fracture: without current pathological fracture
[2024-05-14 14:00] VITALS: BP 126/62; PULSE 74; BMI 30.5
== END 2024-05-14 14:15 | disposition home or self-care (01) ==
LOC: HO.ENCR 13:56
PROVIDERS: PCP Internal Medicine; Visit Provider Internal Medicine Endocrinology, Diabetes & Metabolism
DX: E27.40 Unspecified adrenocortical insufficiency (principal); D35.2 Benign neoplasm of pituitary gland; E03.8 Other specified hypothyroidism; E06.3 Autoimmune thyroiditis; M81.0 Age-related osteoporosis without current pathological fracture
CPT/HCPCS: 99213

== ENCOUNTER → 2024-05-14 13:55 | Outpatient (BNVA) | payer MEDICARE, SELFPAY | PROVIDERS: PCP Internal Medicine; Visit Provider Internal Medicine Endocrinology, Diabetes & Metabolism | DX: E27.40 Unspecified adrenocortical insufficiency (principal); E03.8 Other specified hypothyroidism; E06.3 Autoimmune thyroiditis; D35.2 Benign neoplasm of pituitary gland; M81.0 Age-related osteoporosis without current pathological fracture | CPT/HCPCS: 99212 ==

== ENCOUNTER 2024-07-11 10:53 | Outpatient (REF) | payer MEDICARE, SELFPAY ==
[2024-07-11 13:20] LABS: Free T4 (Free Thyroxine) 1.32 ng/dL (0.71-1.85); Thyroid Stimulating Hormone 1.15 uIU/mL (0.32-4.0)
[2024-07-18 12:43] LABS: N-Telopeptide 28 (see note); NTXCreaRU 120 mg/dL (20-275)
== END 2024-07-11 10:54 | disposition home or self-care (01) ==
LOC: HO.LAB 10:53
PROVIDERS: PCP Internal Medicine; Visit Provider Internal Medicine Endocrinology, Diabetes & Metabolism
DX: E06.3 Autoimmune thyroiditis (principal); M81.0 Age-related osteoporosis without current pathological fracture
CPT/HCPCS: 36415; 82523; 84439; 84443

== ENCOUNTER 2024-07-22 12:36 | Outpatient (REF) | payer MEDICARE, SELFPAY ==
--- NOTE | ~2024-07-22 | MM_ITS ---
EXAMINATION: MM SCREENING DIGITAL BREAST TOMOSYNTHESIS, BILATERAL CLINICAL INFORMATION: Screening. Asymptomatic. COMPARISON: Mammography: Comparison is made with available priors TECHNIQUE: Digital breast mammography with tomosynthesis is performed in both the craniocaudal and mediolateral oblique views along with computer-aided detection (CAD). FINDINGS: There are scattered areas of fibroglandular density (ACR BI-RADS breast composition Category b). Stable asymmetry in the superior posterior left breast on MLO view and medial left breast posterior depth on CC view unchanged dating back to 2013. There are no significant masses, abnormal calcifications, or other abnormalities. MM/MM tomosynthesis screening BI IMPRESSION: No mammographic evidence of malignancy. ASSESSMENT: BI-RADS BI-RADS 2 - Benign Findings RECOMMENDATION: Routine annual mammography screening. 1 year F/U This examination should not preclude the clinical evaluation of a suspicious palpable abnormality. This patient's information was entered into a reminder system with a target due date for their next mammogram. Electronically signed by: Kamille Felder DO 07/28/2024 04:21 PM [facility]
--- NOTE | ~2024-07-22 | MM_ITS ---
EXAMINATION: Dual-Energy X-ray Absorptiometry - Bone Density Study HISTORY: Estrogen deficiency TECHNIQUE: [employer] Dual energy absorptiometry (DEXA) of the lumbar spine, total left hip, and femoral neck was performed. COMPARISON: Comparison is made with the prior examination dated 07/19/2022. FINDINGS: The bone mineral density of the lumbar spine is 1.157 with a T-score of -0.2, and a Z-score of 1.2. This represents a BMD change of -2.6% compared to the prior exam. This is statistically significant. The bone mineral density of the left total hip is 0.804 with a T-score of -1.6, and a Z-score of -0.3. This represents BMD change of -2.4% compared to the prior exam. This is not statistically significant. The bone mineral density of the left femoral neck is 0.728 with a T-score of -2.2, and a Z-score of -0.7. This represents BMD change of 4.0% compared to the prior exam. FRACTURE RISK: The FRAX index suggests a ten year probability of major osteoporotic fracture of 20.7%, and of hip fracture 5.5%. MM/XR DEXA axial skeleton IMPRESSION: Based on bone mineral density, and according to World Health Organization (WHO) criteria, the diagnosis is consistent with osteopenia. All bone density values are in grams per centimeter squared. At this facility, the least significant change in BMD with 95% confidence is 0.022 at the lumbar spine, 0.027 at the hip, and 0.023 at the distal 1/3 radius. Electronically signed by: Yobany Valero MD 07/23/2024 09:49 AM [facility] [place]
== END 2024-07-22 12:37 | disposition home or self-care (01) ==
LOC: HO.MAMMO 12:36
PROVIDERS: PCP Internal Medicine; Visit Provider Internal Medicine Endocrinology, Diabetes & Metabolism
DX: M81.0 Age-related osteoporosis without current pathological fracture (principal); Z12.31 Encounter for screening mammogram for malignant neoplasm of breast
CPT/HCPCS: 77063; 77067; 77080

== ENCOUNTER → 2024-07-22 13:00 | Outpatient (BNV) | payer MEDICARE, SELFPAY | PROVIDERS: PCP Internal Medicine; Visit Provider Radiology Diagnostic Radiology | DX: Z12.31 Encounter for screening mammogram for malignant neoplasm of breast (principal) | CPT/HCPCS: 77063; 77067 ==

== ENCOUNTER 2024-09-10 10:52 | Outpatient (REF) | payer MEDICARE, SELFPAY ==
[2024-09-10 12:02] LABS: Alanine Aminotransferase 19 U/L (0-31); Aspartate Amino Transferase 24 U/L (5-31); Bilirubin Direct 0.2 mg/dL (0.0-0.5); Bilirubin Total 0.5 mg/dL (0.0-1.0); Total Protein 7.6 g/dL (6.5-8.0)
[2024-09-10 12:19] LABS: Alkaline Phosphatase 49 U/L (39-117)
[2024-09-11 15:13] LABS: Hepatitis B Viral DNA Qn - cp NOT DETECTED Log IU/mL (NOT DETECTED); Hepatitis B Viral DNA Qn-IU/mL NOT DETECTED (NOT DETECTED)
[2024-09-15 16:38] LABS: FIB-ALT 15 U/L (6-29); FIB-Alpha-2-Macroglobulin 170 mg/dL (106-279); FIB-Apolipoprotein A1 175 mg/dL (101-198); FIB-GGT 20 U/L (3-65); FIB-Haptoglobin 136 mg/dL (43-212); FIB-Total Bilirubin 0.4 mg/dL (0.2-1.2); Liver Fibrosis Score 0.12; Liver Fibrosis Stage F0; Nec Inflam Act Grade A0; Nec Inflam Act Score 0.04
== END 2024-09-10 10:53 | disposition home or self-care (01) ==
LOC: HO.LAB 10:52
PROVIDERS: PCP Internal Medicine; Visit Provider Internal Medicine
DX: B19.10 Unspecified viral hepatitis B without hepatic coma (principal)
CPT/HCPCS: 36415; 80076; 81596; 86692; 87517

== ENCOUNTER 2024-09-11 09:26 | Outpatient (REF) | payer MEDICARE, SELFPAY ==
--- NOTE | ~2024-09-11 | US_ITS ---
EXAMINATION: US ABDOMEN LIMITED WITH LIVER ELASTOGRAPHY HISTORY: B19.10 - Unspecified viral hepatitis B without hepatic coma TECHNIQUE: Real-time grayscale ultrasound imaging of the abdomen was performed and images were reviewed. COMPARISON: Comparison is made with the prior examination dated 11/08/2021. FINDINGS: Liver: The right lobe of the liver measures 14.0 cm in size. The left lobe of the liver measures 7.1 cm in size. The liver demonstrates slightly coarsened echotexture. No focal mass or intrahepatic biliary ductal dilatation is identified. There is normal hepatopedal flow in the portal vein. Ultrasound elastography of the liver was performed with 10 separate measurements of the liver parenchyma with the patient in the supine position. Measurements were obtained approximately 2 cm below David's capsule and perpendicular to the capsule. Images are of satisfactory quality. The median shear wave velocity is 1.30 m/s. The interquartile range/median (IQR/median) is 0.19. Gallbladder and biliary tree: The gallbladder is unremarkable, without evidence of calculi, wall thickening, or pericholecystic fluid. There is no sonographic Gutiérrez sign. The common bile duct is normal in caliber measuring 3 mm. Kidneys: The right kidney measures 9.4 cm in length and demonstrates a 7 x 10 x 7 mm cyst in the interpolar region. The right kidney is otherwise unremarkable, without evidence of solid masses, hydronephrosis, or calculi. Pancreas: The pancreatic head, neck, and body are unremarkable. The pancreatic tail is obscured by bowel gas. Abdominal aorta and inferior vena cava: The visualized portions of the abdominal aorta and inferior vena cava are normal in caliber. There is no free fluid in the abdomen. US/US abdomen wu w elastography IMPRESSION: 10 mm right renal cyst. Otherwise unremarkable abdominal ultrasound. The median shear wave velocity is 1.30 m/s, corresponding to a median liver stiffness of 5.19 kPa. The IQR/median value is 0.19. This is indicative of a poor quality data set, and the estimated liver stiffness may be unreliable. Findings are indicative of a low elastography value which rules out advanced chronic liver disease in asymptomatic patients. REFERENCE: Society of Radiologists in Ultrasound Liver Stiffness Thresholds (2020): LIVER STIFFNESS THRESHOLDS: *Shear wave velocity less than 1.3 m/s (Liver Stiffness equal or less than 5 kPa): High probability of being normal. *Shear wave velocity less than 1.7 m/s (Liver Stiffness less than 9 kPa): In the absence of other known clinical signs, rules out compensated advanced chronic liver disease. *Shear wave velocity between 1.7-2.1 m/s (Liver Stiffness 9-13 kPa): Suggestive of compensated advanced chronic liver disease but need further test for confirmation. *Shear wave velocity between 2.1-2.4 m/s (Liver Stiffness 13-17 kPa): Rules in compensated advanced chronic liver disease. *Shear wave velocity greater than 2.4 m/s (Liver Stiffness over 17 kPa): Suggestive of clinically significant portal hypertension. QUALITY OF DATA SET: *IQR/Median value equal or less than 0.15 implies a quality data set. *IQR/Median value over 0.15 implies a poor quality data set. SIGNIFICANT CHANGE FROM PRIOR EXAM: Significant change if liver stiffness measurement is 10% or greater from prior exam. OTHER CONSIDERATIONS: The stage of liver fibrosis may be overestimated in the setting of acute hepatitis, liver inflammation, elevated liver function tests, hepatic vascular congestion, obstructive cholestasis, non-fasting state, and infiltrative diseases such as amyloidosis and lymphoma. In some patients with NAFLD, the liver stiffness thresholds for compensated advanced chronic liver disease may be lower. In causes other than viral hepatitis and NAFLD, liver stiffness thresholds are not well established. Electronically signed by: Yobany Valero MD 09/11/2024 10:22 AM [facility]
== END 2024-09-11 09:27 | disposition home or self-care (01) ==
LOC: HO.US 09:26
PROVIDERS: PCP Internal Medicine; Visit Provider Internal Medicine
DX: B19.10 Unspecified viral hepatitis B without hepatic coma (principal)
CPT/HCPCS: 76705; 76981

== ENCOUNTER → 2024-09-11 09:27 | Outpatient (BNV) | payer MEDICARE, SELFPAY | PROVIDERS: PCP Internal Medicine; Visit Provider Radiology Diagnostic Radiology | DX: B19.10 Unspecified viral hepatitis B without hepatic coma (principal) | CPT/HCPCS: 76705 ==

== ENCOUNTER 2024-09-22 15:10 | Outpatient (AMB) | payer MEDICARE, SELFPAY ==
--- NOTE | 2024-09-22 15:10 | MHC.OFFVIS ---
Vital Signs 09/22/24 15:11 Height 5 ft 2 in Weight 168 lb BMI 30.7 BP 120/72 Blood Pressure Location Lt brachial Position Sitting Pulse 80 Pulse Source Pulse Oximeter Temp 98.2 F Temp Source Oral Pulse Oximetry (%) 98 Oxygen Delivery Method Room Air Intake Visit Reasons: F/U,1 yr. Allergies No Known Allergies [No Known Allergies*] Allergy (Verified 09/22/24 15:14) HPI HPI F/U,1 yr.: Details: She has no problems with Hepatitis B. She doesnt take medication for it. [facility] Medical History Sessile serrated polyp of colon Diverticulosis Pituitary microadenoma Hepatitis B Annual physical exam Tinnitus Vitamin D deficiency Adrenal insufficiency Hyperlipidemia Tick bite Shoulder pain Hepatitis B Osteoporosis Hypothyroidism Adrenal cortex insufficiency Surgical History Hx of colonoscopy History of carpal tunnel surgery Family History Father No problems noted. Mother No problems noted. Brother Hyperparathyroidism Sister Osteoporosis Social History Household Members: Spouse Housing: House Do you presently have visiting nurse or other home services: No Alcohol intake: former Patient Tobacco Use Status: Former Tobacco user Cigarette Packs Per Day: 1 Years Smoked: 25 e-Cigarette/Vaping Use: Never Used Substance Use Type: Marijuana service: No Current occupational status: retired Cognitive needs: No Hearing needs: No Vision needs: Yes Review of Systems Const All systems reviewed & are unremarkable except as noted in HPI and below Physical Exam Vital Signs: Last Vital Signs Temp 98.2 F 09/22/24 15:11 Pulse 80 09/22/24 15:11 BP 120/72 09/22/24 15:11 Pulse Ox 98 09/22/24 15:11 Oxygen Delivery Method Room Air 09/22/24 15:11 BMI result Body Mass Index 30.7 Const General: cooperative HEENT Head: Yes normal to inspection Face and sinus: Yes normal facial exam Mouth: Normal oral and palatal mucosa present Teeth and gingiva: dentition normal Eyes General: appearance normal, both eyes and all related structures Pupils: Equal, round and reactive pupils present Resp Effort & Inspection: normal respiratory effort Cardio Rate: regular rate Rhythm: regular rhythm GI Palpation (GI): Soft to palpation and nontender General: Yes no CVA tenderness Back/Spine/Pelvis Back: no CVA tenderness Skin General skin exam: no rashes or lesions noted Neuro General: moves all extremities Cranial nerves: Yes Equal, round and reactive pupils present Extrem General: Yes normal to inspection Psych Appearance: grossly normal Assessment & Plan Assessment & Plan (1) Hepatitis B: Comment: She has been doing well with no increase in steroids or immunosuppressive medication Code(s): B19.10 - Unspecified viral hepatitis B without hepatic coma Category: Medical Plan: She has viral load undetectable for Hepatitis B and no liver damage seen. Plan Abd u/s with viral load every year. No appt given but will see prn need. Coding Level of Care Code Est Pt Level 3 (67528) Diagnoses Hepatitis B B19.10
[2024-09-22 15:11] VITALS: BP 120/72; PULSE 80; TEMP 36.8; O2SAT 98; BMI 30.7
== END 2024-09-22 15:57 | disposition home or self-care (01) ==
PROVIDERS: PCP Internal Medicine; Visit Provider Internal Medicine
DX: B19.10 Unspecified viral hepatitis B without hepatic coma (principal)
CPT/HCPCS: 99213

== ENCOUNTER → 2024-09-22 15:10 | Outpatient (BNVA) | payer MEDICARE, SELFPAY | PROVIDERS: PCP Internal Medicine; Visit Provider Internal Medicine | DX: B19.10 Unspecified viral hepatitis B without hepatic coma (principal) | CPT/HCPCS: 99212 ==

== ENCOUNTER 2024-10-09 13:18 | Outpatient (AMB) | payer MEDICARE, SELFPAY ==
--- NOTE | 2024-10-09 13:20 | MHC.OFFVIS ---
Vital Signs 10/09/24 13:28 Height 5 ft 2.07 in Weight 165 lb 12.602 oz BMI 30.3 BP 124/60 Blood Pressure Location Rt brachial Position Sitting Pulse 70 Pulse Source Pulse Oximeter Pulse Oximetry (%) 95 Oxygen Delivery Method Room Air Intake Visit Reasons: Pituitary microadenoma/Osteoporosis Intake Note: Patient present today for Pituitary microadenoma/Osteoporosis follow up visit. 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 S 1) Osteoporosis: First diagnosed in 2017 with her DEXA revealing Osteoporosis of the Hip. She was started on Alendronate 12/03/2018, but we stopped this after her initial visit in order to complete a full workup for secondary causes of Osteoporosis. She stopped this as of 05/2021. She does have a brother with primary hyperparathyroidism who had a parathyroidectomy. Workup for secondary causes of Osteoporosis was largely WNL, other than Calcium high normal. She does report going through menopause in her early 40's. She used HRT for only 1-2 months after. She remains on alendronate for the time being.On alendronate for >5 yrs No history of pathologic fracture or ONJ. Has 2-3 servings of dietary calcium per day in the form of milk and cheese. Takes Calcium supplement 600 mg daily. Takes 1000 IU of Vitamin D daily. She does have adrenal insufficiency and uses Hydrocortisone 5 mg PO q am and 2.5 mg PO q pm. Denies ever using PPI, anticoagulant, or antiepileptic medication. Does no scheduled exercise. Fracture history: Denies Height loss: Denies [employer] history: Menarche was age 11. Menses were always regular. . Did not breastfeed. Menopause was age 51. Denies any HRT. Denies history of Kidney stones: Does have a family history of Osteoporosis in his Brother and his Sister. His Brother had hyperparathyroidism and suffered a hip fracture. UTD on dental cleanings and sees dentist every 6 months. No planned upcoming dental work or extractions. She is currently on a drug holiday. No fx since last visit 2) Adrenal Insufficiency: She was initially diagnosed with adrenal insufficiency in [address] Lui. She was having frequent admissions for hyponatremia. 07/04/2016 she underwent cosyntropin stim testing which was inappropriate. She was diagnosed with adrenal insufficiency and was started on hydrocortisone. She remains on 5 mg PO q am and 5 mg PO q pm. 3) Pituitary Microadenoma. She had a pituitary MRI which revealed a 4 mm pituitary microadenoma. Pituitary panel was WNL.. Last MRI showed stability in the size of the adenoma DXA: 07/19/2022 FINDINGS: AP SPINE L1-L4: Current: BMD 1.188 g/cm2, Z-score 1.5, T-score 0.1, normal, 3.1% increase from previous, 8.9% increase from baseline (<5% change is not significant). Prior: BMD 1.152 g/cm2. Baseline: BMD 1.091 g/cm2. LEFT FEMUR, NECK: Current: BMD 0.700 g/cm2, Z-score -0.9, T-score -2.4, osteopenia. Prior: BMD 0.716 g/cm2. Baseline: BMD 0.821 g/cm2. LEFT FEMUR, TOTAL: Current: BMD 0.824 g/cm2, Z-score -0.2, T-score -1.5, osteopenia, 0.8% decrease from previous, 11.5% decrease from baseline (<5% change is not significant). Prior: BMD 0.831 g/cm2. Baseline: BMD 0.931 g/cm2. Pituitary MRI: 07/24/2022 FINDINGS: There is an area of decreased differential enhancement the anterior lobe of the pituitary gland in the midline which measures 4.0 x 2.0 x 2.0 mm in AP, transverse and craniocaudal dimensions. This measured 5.0 x 4.0 x 2.0 cm on the prior study. The infundibulum is midline. The cavernous sinuses opacify symmetrically. The internal carotid artery flow-voids are maintained. The optic chiasm is normal. No suprasellar soft tissue abnormality is seen. The sella turcica is normal. No diffusion abnormalities are identified to suggest an acute or subacute infarct. The ventricles and sulci are slightly commensurately prominent consistent with diffuse volume loss. Brain parenchymal signal is unremarkable. No mass effect or midline shift is seen. There is no acute or chronic hemorrhage. No extra-axial fluid collections are noted. The brainstem and cerebellum are normal. On postcontrast imaging, there is no other abnormal parenchymal or leptomeningeal enhancement. The craniovertebral junction, marrow signal, and midline structures are normal. The mastoid air cells are well-aerated. There is a retention cyst in the inferior right maxillary sinus. Thyroid US: 06/28/2021 Right Thyroid Lobe: 3.5 x 1.5 x 1.1 cm, volume 3.0 mL. Parenchyma: The gland echotexture is heterogeneous. Thyroid vascularity is normal. Left Thyroid Lobe: 4.2 x 1.7 x 1.0 cm, volume 3.7 mL. Parenchyma: The gland echotexture is heterogeneous. Thyroid vascularity is normal. Isthmus: 0.4 cm in maximum AP dimension. No focal thyroid nodule is seen. NODES: No lymphadenopathy is seen in the tissue surrounding the thyroid gland. Labs: Laboratory Tests 02/01/23 02/01/23 02/01/23 10:34 10:34 10:34 Sodium 141 Potassium 4.1 Creatinine 0.94 Estimated GFR 59 Osmolality 295 25-OH Vitamin D Total 47.9 TSH 0.96 Free T4 1.25 Total T3 109 Prolactin Undiluted 7.6 Somatomedin-C 59 PTH Intact 74 Calcium (PTH Intact) 9.1 ACTH 02/05/23 09:13 Sodium Potassium Creatinine Estimated GFR Osmolality 25-OH Vitamin D Total TSH Free T4 Total T3 Prolactin Undiluted Somatomedin-C PTH Intact Calcium (PTH Intact) ACTH 30 The patient is a 69-year-old female presenting for follow-up related to pituitary adrenal insufficiency. She is currently taking hydrocortisone and levothyroxine for adrenal insufficiency and Adam's thyroiditis, respectively. There has been a recent modification in her hydrocortisone dosing with an observed stable pattern. Her health plan includes contemplating a period without hydrocortisone to evaluate adrenal recovery. She has previously experienced an increase in dose requirements during times of stress or after dental procedures. She is also mindful of the impacts of steroids and communicates her experiences effectively, providing insight into her management strategies. Her osteoporosis is documented as stable, and she is advised to continue calcium and vitamin D while not recommencing alendronate therapy. Her thyroid condition remains stable under her current medication regimen. The patient maintains a diet sufficient in calcium and vitamin D to support her treatment for osteoporosis. She continues to follow nutritional guidance aligned with endocrinological and bone health principles. [facility] Medical History Sessile serrated polyp of colon Diverticulosis Pituitary microadenoma Hepatitis B Annual physical exam Tinnitus Vitamin D deficiency Adrenal insufficiency Hyperlipidemia Tick bite Shoulder pain Hepatitis B Osteoporosis Hypothyroidism Adrenal cortex insufficiency Surgical History Hx of colonoscopy History of carpal tunnel surgery Family History Father No problems noted. Mother No problems noted. Brother Hyperparathyroidism Sister Osteoporosis Social History Household Members: Spouse Housing: House Do you presently have visiting nurse or other home services: No Alcohol intake: former Patient Tobacco Use Status: Former Tobacco user Cigarette Packs Per Day: 1 Years Smoked: 25 e-Cigarette/Vaping Use: Never Used Substance Use Type: Marijuana service: No Current occupational status: retired Cognitive needs: No Hearing needs: No Vision needs: Yes Physical Exam Vital Signs: Last Vital Signs Pulse 70 10/09/24 13:28 BP 124/60 10/09/24 13:28 Pulse Ox 95 10/09/24 13:28 Oxygen Delivery Method Room Air 10/09/24 13:28 BMI result Body Mass Index 30.3 Const Other: Thyroid gland is normal size weighs about 15 g. There are no thyroid nodules palpated Assessment & Plan Assessment & Plan (1) Adrenal insufficiency: Comment: On hydrocortisone 5 mg twice a day f/u [facility] Code(s): E27.40 - Unspecified adrenocortical insufficiency Category: Medical Plan: This 67-year-old white female with a history of secondary adrenal insufficiency currently replaced on hydrocortisone 5 mg in the a.m. and 5 mg in the p.m.. She appears to be doing clinically well. Plan is to continue the current management 1. secondary adrenal insufficiency: The condition is being managed with hydrocortisone 5 mg in AM and 2.5 mg in PM ; a strategy to evaluate the recovery of adrenal function through cortisol testing was discussed. An ACTH stimulation test may be performed contingent on test results to determine if steroid tapering is advisable. Went over sick day rules again ensured the patient has rescue hydrocortisone home. Patient was informed and verbally consented to the use of an ambient scribe for clinic note documentation during this visit. I discussed with the patient the current state and approach to managing her pituitary adrenal insufficiency, including the planned 24-hour hydrocortisone cessation to test adrenal function recovery. We reviewed the potential need for an ACTH stimulation test contingent on cortisol results to fine-tune her hydrocortisone regimen. She was advised about the risks associated with high steroid doses, including osteoporosis and metabolic effects, reinforcing the importance of cautious management. Her thyroid management under levothyroxine was confirmed with stability, and we agreed that primary follow-up would ensure adequate monitoring. Osteoporosis management continues with calcium and vitamin D amid stable bone density but will remain monitored without active alendronate therapy. These strategies consider her overall well-being and aim to optimize her stability and health outcomes. - Continue taking hydrocortisone as currently prescribed. - If planning to hold hydrocortisone for testing, ensure 24-hour cessation and arrange for cortisol testing. - Continue levothyroxine at the current dose and consult the primary care physician for thyroid monitoring. - Continue dietary intake with calcium and vitamin D supplements. - Monitor for any symptoms of illness or increased stress, and use rescue hydrocortisone as needed. - Return for follow-up in approximately 6 months, or sooner if cortisol testing results indicate. - Contact the office with any questions or new symptoms. - (2) Hypothyroidism: Comment: Adam's disease on levothyroxine, managed by endocrinology, normal thyroid ultrasound 2022 Code(s): E03.9 - Hypothyroidism, unspecified Category: Medical Qualifiers: Hypothyroidism type: due to Adam's thyroiditis Qualified Code(s): E03.8 - Other specified hypothyroidism; E06.3 - Autoimmune thyroiditis Plan: History of Adam's thyroiditis and primary hypothyroidism be replaced on 100 mcg levothyroxine. Appears to be clinically and biochemically euthyroid Plan is to continue the current management . At this point in terms of the hypothyroidism the patient returned to the care of her primary care provider and returned back to endocrinology as necessary (3) Osteoporosis: Comment: alendronate 11/2018 until 09/2023, started drug holiday 10/2023, DEXA 07/2022 T-score lowest -2.4, femoral neck, Code(s): M81.0 - Age-related osteoporosis without current pathological fracture Category: Medical Qualifiers: Osteoporosis type: age-related Presence of current pathological fracture: without current pathological fracture Qualified Code(s): M81.0 - Age-related osteoporosis without current pathological fracture Plan: Currently off alendronate, vitamin-D and calcium supplementation. Bone density remains stable recently and urine NTX is suppressed Will continue drug holiday with calcium and vitamin-D. 3. Osteoporosis: Continue calcium and vitamin D supplementation with monitoring of bone density, and no need to restart alendronate therapy at this time. Orders: Orders Cortisol Random Today E27.40 - Unspecified adrenocortical insufficiency Coding Level of Care Code Est Pt Level 3 (78411) Diagnoses Adrenal insufficiency E27.40 Hypothyroidism due to Adam's thyroiditis E03.8; E06.3 Hypothyroidism type: due to Adam's thyroiditis Age-related osteoporosis without current pathological fracture M81.0 Osteoporosis type: age-related Presence of current pathological fracture: without current pathological fracture
[2024-10-09 13:28] VITALS: BP 124/60; PULSE 70; O2SAT 95; BMI 30.3
== END 2024-10-09 13:57 | disposition home or self-care (01) ==
LOC: HO.ENCR 13:18
PROVIDERS: PCP Internal Medicine; Visit Provider Internal Medicine Endocrinology, Diabetes & Metabolism
DX: E27.40 Unspecified adrenocortical insufficiency (principal); E03.8 Other specified hypothyroidism; E06.3 Autoimmune thyroiditis; M81.0 Age-related osteoporosis without current pathological fracture
CPT/HCPCS: 99213

== ENCOUNTER → 2024-10-09 13:18 | Outpatient (BNVA) | payer MEDICARE, SELFPAY | PROVIDERS: PCP Internal Medicine; Visit Provider Internal Medicine Endocrinology, Diabetes & Metabolism | DX: M81.0 Age-related osteoporosis without current pathological fracture (principal); E03.8 Other specified hypothyroidism; E06.3 Autoimmune thyroiditis; E27.40 Unspecified adrenocortical insufficiency; Z78.0 Asymptomatic menopausal state | CPT/HCPCS: 99212 ==

== ENCOUNTER 2025-01-08 08:01 | Outpatient (AMB) | payer MEDICARE, SELFPAY ==
[2025-01-08 08:05] VITALS: BP 120/68; PULSE 76; RESP 18; TEMP 36.7; O2SAT 96; BMI 29.3
--- NOTE | 2025-01-08 08:05 | A.OFFPC_ITS ---
Vital Signs 01/08/25 08:05 Height 5 ft 2 in Weight 160 lb BMI 29.3 BP 120/68 Blood Pressure Location Lt brachial Position Sitting Respiration 18 Pulse 76 Pulse Source Pulse Oximeter Temp 98.1 F Temp Source Oral Pulse Oximetry (%) 96 Oxygen Delivery Method Room Air Intake Visit Reasons: Annual PE Intake Note: Pt is here today for PE. Allergies No Known Allergies (No Known Allergies*) Allergy (Verified 01/08/25 08:07) Medication List - Last Reconciled 01/08/25 by Kika Miner MD atorvastatin (Lipitor) 40 mg PO DAILY hydrocortisone 5 mg PO DAILY levothyroxine 88 mcg PO DAILY Tobacco use date assessed: 01/08/25 Fall risk assessment: No Falls in past year Last assessed Fall Risk: 01/08/25 Dental Screening Dental Screen Date: 01/08/25 Did you have a dental visit in the last 12 months?: Yes Did you have a dental problem in the last 6 months where you did not have access to dental care?: No Was dental information given to patient?: Patient has dentist HPI Annual PE HPI Details Patient presents for a physical. She complains of bilateral hip stiffness and discomfort when starting to walk a getting up from sitting position. Patient denies pain while walking but she has not been physically active. Patient noticed increased lower extremities swelling in the summertime and at the end of the day. She denies dyspnea on exertion chest pain palpitations [facility] Medical History (Updated 01/08/25 @ 09:33 by Kika Miner MD) Hip pain, bilateral Sessile serrated polyp of colon Diverticulosis Pituitary microadenoma Hepatitis B Annual physical exam Tinnitus Vitamin D deficiency Adrenal insufficiency Hyperlipidemia Tick bite Shoulder pain Hepatitis B Osteoporosis Hypothyroidism Adrenal cortex insufficiency Surgical History Hx of colonoscopy History of carpal tunnel surgery Family History Father No problems noted. Mother No problems noted. Brother Hyperparathyroidism Sister Osteoporosis Social History Household Members: Spouse Housing: House Do you presently have visiting nurse or other home services: No Alcohol intake: former Patient Tobacco Use Status: Former Tobacco user Cigarette Packs Per Day: 1 Years Smoked: 25 e-Cigarette/Vaping Use: Never Used Substance Use Type: Marijuana service: No Current occupational status: retired Cognitive needs: No Hearing needs: No Vision needs: Yes Questionnaire PHQ-9 Over the last 2 weeks, how often have you been bothered by any of the following problems? 1. Little interest or pleasure in doing things: not at all 2. Feeling down, depressed, or hopeless: not at all 3. Trouble falling or staying asleep, or sleeping too much: several days 4. Feeling tired or having little energy: several days 5. Poor appetite or overeating: not at all 6. Feeling bad about yourself - or that you are a failure or have let yourself or your family down: not at all 7. Trouble concentrating on things, such as reading the newspaper or watching television: not at all 8. Moving or speaking so slowly that other people could have noticed. Or the opposite - being so fidgety or restless that you have been moving around a lot more than usual: not at all 9. Thoughts that you would be better off or of hurting yourself in some way: not at all Total score: 2 Depression Screening Interpretation: Negative Depression Screening Done: Yes 45273 - PHQ-9 Billing: Yes Source: Developed by Drs. Yobany Johnson, Mery Oconnell, Ishmael Davidson and colleagues, with an educational todd from [employer]. Thrive Questionnaire Date Thrive assessed: 01/08/25 I am a: Patient What is your living situation today?: I have a steady place to live Within the past 12 months, did the food you bought not last and you didn't have the money to get more?: Never true Within the past 12 months, did you worry whether your food would run out before you got money to buy more?: Never true Do you have trouble paying for medicines?: No Do you have trouble getting transportation to medical appointments?: No Do you have trouble paying your heating and electricity bill?: No Do you have trouble taking care of your child, family member or friend?: No Do you have trouble with day-to-day activities such as bathing, preparing meals, shopping, managing finances, etc.?: No Are you currently unemployed and looking for a job?: No Are you interested in more education?: No Please select the resources that you would like help with: None Currently or been in a relationship where the following occur: No concerns reported THRIVE Score: 0 AUDIT C Alcohol Use Questionnaire (AUDIT-C) 1. How often do you have a drink containing alcohol?: 2-4 times a month 2. How many drinks containing alcohol do you have on a typical day when you are drinking?: 1 or 2 3. How often do you have six or more drinks on one occasion?: Never Total Score: 2 SINA-7 AMB Questionnaire SINA-7 Date SINA - 7 assessed: 01/08/25 Feeling nervous, anxious, or on edge: 0 = Not at all Not being able to stop or control worryin = Not at all Worrying too much about different things: 0 = Not at all Trouble relaxin = Not at all Being so restless that it is hard to sit still: 0 = Not at all Becoming easily annoyed or irritable: 0 = Not at all Feeling afraid as if something awful might happen: 0 = Not at all Total SINA-7 score (0-4 normal; 5-9 mild; 10-14 moderate; 15-21 severe): 0 Source: Developed by Drs. Yobany Johnson, Mery Oconnell, Ishmael Davidson and colleagues, with an educational todd from [employer]. SINA-7 Assessment Billing SINA-7 Assessment Tool: SINA-7 Assessment 80531 Review of Systems Const All systems reviewed & are unremarkable except as noted in HPI and below Reports no additional complaints Eyes Reports no additional complaints ENT Reports no additional complaints Card Reports no additional complaints Resp Reports no additional complaints GI Reports no additional complaints Reports no additional complaints Physical exam (Primary Care) Vital Signs: Last Vital Signs Temp 98.1 F 01/08/25 08:05 Pulse 76 01/08/25 08:05 Resp 18 01/08/25 08:05 BP 120/68 01/08/25 08:05 Pulse Ox 96 01/08/25 08:05 Oxygen Delivery Method Room Air 01/08/25 08:05 BMI result Body Mass Index 29.3 Tobacco/Smoking Status: Tobacco use Status Tobacco use date assessed 01/08/25 01/08/25 08:12 Patient Tobacco Use Status Former Tobacco user 01/08/25 08:12 e-Cigarette/Vaping Use Never Used 01/08/25 08:12 PHQ-9: PHQ-9 Score PHQ-9: Total score 2 01/08/25 08:12 Depression Screening Interpretation: Negative Thrive Assessment: Date of Thrive Assessment Date Thrive assessed 01/08/25 01/08/25 08:12 Currently or been in a relationship where the following occur: No concerns reported Const General: no acute distress HENMT Head: Yes normal to inspection Face and sinus: Yes normal facial exam Mouth: Normal oral and palatal mucosa present Eyes General: appearance normal, both eyes and all related structures Neck Neck: Yes supple Resp Effort & Inspection: normal respiratory effort Auscultation: clear to auscultation bilaterally Cardio Rhythm: regular rhythm Heart sounds: S1 normal heart sound present and S2 normal heart sound present GI Inspection: Yes normal to inspection Palpation (GI): Soft to palpation Percussion: Yes normal to percussion Auscultation: normal bowel sounds Back/Spine/Pelvis Other: This is a slightly decreased range of motion both hips, no tenderness over greater trochanteric area, Extrem Other: 1+ pitting edema bilaterally Coding Level of Care Code Est Pt Prev Care >65y(97962) Diagnoses Adrenal cortex insufficiency E27.40 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; E06.3 Hypothyroidism type: due to Russel's thyroiditis Dysplastic nevi D23.9 Hyperlipidemia E78.5 Pituitary microadenoma D35.2 Hip pain, bilateral M25.551; M25.552 Age-related osteoporosis without current pathological fracture M81.0 Osteoporosis type: age-related Presence of current pathological fracture: without current pathological fracture Annual physical exam Z00.00 Vitamin D deficiency E55.9 Edema R60.9 Additional Codes SINA-7 Assessment Billing - SINA-7 Assessment Tool: SINA-7 Assessment 04421 ([id number]) PHQ-9 - 56562 - PHQ-9 Billing: Yes ([id number]) Assessment & Plan Assessment & Plan (1) Adrenal cortex insufficiency: Comment: On hydrocortisone 5 mg twice a day, follow-up by Endocrinology Code(s): E27.40 - Unspecified adrenocortical insufficiency Category: Medical Plan: Check cortisol level 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 Qualified Code(s): E03.8 - Other specified hypothyroidism; E06.3 - Autoimmune thyroiditis Plan: Continue levothyroxine check TSH (3) Dysplastic nevi: Code(s): D23.9 - Other benign neoplasm of skin, unspecified Category: Medical Plan: Referred to dermatology (4) Hyperlipidemia: Code(s): E78.5 - Hyperlipidemia, unspecified Category: Medical Plan: Continue atorvastatin (5) Pituitary microadenoma: Comment: 4 mm MR 2023 Code(s): D35.2 - Benign neoplasm of pituitary gland Category: Medical Plan: Follow-up with endocrinology (6) Hip pain, bilateral: Code(s): M25.551 - Pain in right hip; M25.552 - Pain in left hip Category: Medical Plan: Obtain x-rays of both hips and refer to physical therapy (7) Osteoporosis: Comment: alendronate 11/2018 until 09/2023, started drug holiday 10/2023, DEXA 07/2022 T- score lowest -2.4, femoral neck, DEXA 08/09 T score -2.2 Code(s): M81.0 - Age-related osteoporosis without current pathological fracture Category: Medical Qualifiers: Osteoporosis type: age-related Presence of current pathological fracture: without current pathological fracture Qualified Code(s): M81.0 - Age- related osteoporosis without current pathological fracture Plan: Continue vitamin-D supplement weight-bearing exercises discussed with the patient (8) Annual physical exam: Code(s): Z00.00 - Encounter for general adult medical examination without abnormal findi ngs Category: Medical Plan: Well-balanced diet regular physical activity discussed with the patient she is up-to-date with the mammogram and 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 Panel Fast Today Kika Miner MD D35.2 - Benign neoplasm of pituitary gland, E03.8 - Other specified hypothyroidism, E06.3 - Autoimmune thyroiditis, E78.5 - Hyperlipidemia, unspecified Lipid Panel Today Kika Miner MD D35.2 - Benign neoplasm of pituitary gland, E03.8 - Other specified hypothyroidism, E06.3 - Autoimmune thyroiditis, E78.5 - Hyperlipidemia, unspecified TSH reflex Free T4 Today Kika Miner MD D35.2 - Benign neoplasm of pituitary gland, E03.8 - Other specified hypothyroidism, E06.3 - Autoimmune thyroiditis, E78.5 - Hyperlipidemia, unspecified C Reactive Protein Today Kika Miner MD D35.2 - Benign neoplasm of pituitary gland, E03.8 - Other specified hypothyroidism, E06.3 - Autoimmune thyroiditis, E78.5 - Hyperlipidemia, unspecified PT Evaluation and Treatment Today Kika Miner MD M25.551 - Pain in right hip, M25.552 - Pain in left hip Vitamin D 25-OH Total Today Kika Miner MD E55.9 - Vitamin D deficiency, unspecified Comprehensive Lysite. Panel Fast 1 Year Kika Miner MD E03.8 - Other specified hypothyroidism, E06.3 - Autoimmune thyroiditis, E27.40 - Unspecified adrenocortical insufficiency, E55.9 - Vitamin D deficiency, unspecified, E78.5 - Hyperlipidemia, unspecified Cortisol Random 1 Year Kika Miner MD E03.8 - Other specified hypothyroidism, E06.3 - Autoimmune thyroiditis, E27.40 - Unspecified adrenocortical insufficiency, E55.9 - Vitamin D deficiency, unspecified, E78.5 - Hyperlipidemia, unspecified Cortisol Random Today Kika Miner MD D35.2 - Benign neoplasm of pituitary gla nd, E03.8 - Other specified hypothyroidism, E06.3 - Autoimmune thyroiditis, E78.5 - Hyperlipidemia, unspecified Complete Blood Count Auto Diff Today Kika Miner MD D35.2 - Benign neoplasm of pituitary gland, E03.8 - Other specified hypothyroidism, E06.3 - Autoimmune thyroiditis, E78.5 - Hyperlipidemia, unspecified CA echo transthoracic complete Today Kika Miner MD D35.2 - Benign neoplasm of pituitary gland, E03.8 - Other specified hypothyroidism, E06.3 - Autoimmune thyroiditis, E78.5 - Hyperlipidemia, unspecified XR hips CARLIE min 3V Today Kika Miner MD M25.551 - Pain in right hip, M25.552 - Pain in left hip Complete Blood Count Auto Diff 1 Year Kika Miner MD E03.8 - Other specified hypothyroidism, E06.3 - Autoimmune thyroiditis, E27.40 - Unspecified adrenocortical insufficiency, E55.9 - Vitamin D deficiency, unspecified, E78.5 - Hyperlipidemia, unspecified Lipid Panel 1 Year Kika Miner MD E03.8 - Other specified hypothyroidism, E06.3 - Autoimmune thyroiditis, E27.40 - Unspecified adrenocortical insufficiency, E55.9 - Vitamin D deficiency, unspecified, E78.5 - Hyperlipidemia, unspecified TSH reflex Free T4 1 Year Kika Miner MD E03.8 - Other specified hypothyroidism, E06.3 - Autoimmune thyroiditis, E27.40 - Unspecified adrenocortical insufficiency, E55.9 - Vitamin D deficiency, unspecified, E78.5 - Hyperlipidemia, unspecified Vitamin D 25-OH Total 1 Year Kika Miner MD E03.8 - Other specified hypothyroidism, E06.3 - Autoimmune thyroiditis, E27.40 - Unspecified adrenocortical insufficiency, E55.9 - Vitamin D deficiency, unspecified, E78.5 - Hyperlipidemia, unspecified Referrals Dermatology Referral Kika Miner MD D23.9 - Other benign neoplasm of skin, unspecified, E03.8 - Other specified hypothyroidism, E06.3 - Autoimmune thyroiditis, E27.40 - Unspecified adrenocortical insufficiency Medications: Changed From hydrocortisone 5 mg PO BID 270 tabs 11RF To hydrocortisone 5 mg PO DAILY Yobany Moran MD Refilled levothyroxine 88 mcg PO DAILY 90 tabs 3RF Kika Miner MD atorvastatin (Lipitor) 40 mg PO DAILY 90 tabs 3RF Kika Miner MD
--- OUTSIDE RECORDS SUMMARY | 2025-01-08 08:09 | XMS_ITS | Patient Health Record ---
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 [employer] Name Role Phone Donovan Lui Primary Care Provider Yobany Denis [phone] Reason For Referral No Information Medications Medication SIG (Take, Route, Fr equency, Duration) Notes Start Date End Date Status Levothyroxine Sodium 07/16/2024 07/16/99 Active Simvastatin 07/16/2024 07/16/2024 Active MoviPrep 100 GM as directed Orally o nce for 1 dose 05/29/2012 Active Zofran ODT 4 MG 1 tab Orally Q 4-6 h ours prn nausea/vomiting for 1 day 07/23/2012 Active Problems Problem Type SNOMED Code ICD Code Onset Dates Problem Status W/U Status Risk Notes Problem Colon cancer screening (V76.51) Active confirmed Problem History of adenomatous polyp of colon (592432850) History of adenomatous polyp of colon (V12.72) Active confirmed Plan Of Treatment Future Test Test Name Order Date COLONOSCOPY 05/29/2012 Insurance Providers Payer Name Payer Address Payer Phone Subscriber Number Group Number Insured Name Patient Relationship to Insured Coverage Start Date Coverage End Date [facility] [place] [employer] [place]ESSIONAL [place]S [address] [place] [address] [id number] BRYAN COSTELLO Self - patient is the insured Medical (General) History Medical History History ICD Code Denies [place],DM,CVA,Lung disease,renal dise ase Elevated cholesterol Hypothyroid Hospitalized in 2010 for hyponatremia in relation to N/V/Diarrhea Tubular adenoma [place] [address] 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
== END 2025-01-08 08:51 | disposition home or self-care (01) ==
LOC: HO.HMCC 08:02
PROVIDERS: PCP Internal Medicine; Visit Provider Internal Medicine
DX: E78.5 Hyperlipidemia, unspecified (principal); D35.2 Benign neoplasm of pituitary gland; E27.40 Unspecified adrenocortical insufficiency; E03.8 Other specified hypothyroidism; E06.3 Autoimmune thyroiditis; D23.9 Other benign neoplasm of skin, unspecified; M25.551 Pain in right hip; M25.552 Pain in left hip; M81.0 Age-related osteoporosis without current pathological fracture; E55.9 Vitamin D deficiency, unspecified; R60.9 Edema, unspecified

== ENCOUNTER 2025-01-08 08:01 | Outpatient (REF) | payer MEDICARE, SELFPAY ==
--- NOTE | ~2025-01-08 | XR_ITS ---
EXAMINATION: XR BILATERAL HIPS CLINICAL INFORMATION: M25.551 - Pain in right hip COMPARISON: None available. TECHNIQUE: AP view and frog-leg lateral views of each hip were obtained. FINDINGS: RIGHT HIP: No fracture, dislocation, or suspicious bone lesion. Normal alignment. Mild degenerative arthritis in the right hip with superolateral acetabular and tiny subcapital osteophytes. Gross preservation of the joint space. Mild over coverage of the posterior acetabulum noted. There is calcific enthesopathy of the hamstrings insertion. Mild calcific enthesopathy of the greater trochanter. Soft tissues otherwise normal. LEFT HIP: No fracture, dislocation, or suspicious bone lesion. Normal alignment. Mild degenerative arthritis in the right hip with superolateral acetabular and tiny subcapital osteophytes. Gross preservation of the joint space. Mild over coverage of the posterior acetabulum noted. There is calcific enthesopathy of the hamstrings insertion. Mild calcific enthesopathy of the greater trochanter. Soft tissues otherwise normal. XR/XR hips CARLIE min 3V IMPRESSION: 1. No acute bony abnormalities of either hip. 2. Mild degenerative arthritis of both hip joints symmetrically. 3. Bilateral calcific enthesopathy of the greater trochanters and hamstrings insertions. Electronically signed by: Alvarado Cade MD 01/08/2025 10:04 AM EDT
[2025-01-08 10:42] LABS: Cortisol Random < 1.0 ug/dL
== END 2025-01-08 08:02 | disposition home or self-care (01) ==
LOC: HO.HMGCLDS 08:01
PROVIDERS: PCP Internal Medicine; Referring Provider Internal Medicine Endocrinology, Diabetes & Metabolism; Visit Provider Internal Medicine
DX: Z00.00 Encounter for general adult medical examination without abnormal findings (principal); E27.40 Unspecified adrenocortical insufficiency; E03.8 Other specified hypothyroidism; E06.3 Autoimmune thyroiditis; M25.551 Pain in right hip; M25.552 Pain in left hip; D23.9 Other benign neoplasm of skin, unspecified; E78.5 Hyperlipidemia, unspecified; D35.2 Benign neoplasm of pituitary gland; M81.0 Age-related osteoporosis without current pathological fracture; E55.9 Vitamin D deficiency, unspecified; R60.9 Edema, unspecified
CPT/HCPCS: 36415; 73522; 82533; 96127; 99212

== ENCOUNTER → 2025-01-08 09:25 | Outpatient (BNV) | payer MEDICARE, SELFPAY | PROVIDERS: PCP Internal Medicine; Referring Provider Internal Medicine Endocrinology, Diabetes & Metabolism; Visit Provider Radiology Diagnostic Radiology | DX: M16.0 Bilateral primary osteoarthritis of hip (principal) | CPT/HCPCS: 73522 ==

== ENCOUNTER 2025-01-27 09:03 | Outpatient (REF) | payer MEDICARE, SELFPAY ==
--- OUTSIDE RECORDS SUMMARY | 2025-01-27 09:22 | XMS_ITS | Patient Health Record ---
Author Organization [facility] Address [address] [place] [address] Care Team Providers Care Shoer Name Role Phone Donovan Lui Primary Care Provider Yobany Denis [phone] Reason For Referral No Information Medications Medication [...] Problem History of adenomatous polyp of colon ([id number]) History of adenomatous polyp of colon (V12.72) Active confirmed Plan Of Treatment Future Test Test Name Order Date COLONOSCOPY 05/29/2012 Insurance Providers Payer Name Payer Address Payer Phone Subscriber Number Group Number Insured Name Patient Relationship to Insured Coverage Start Date Coverage End Date [facility] [place] [employer] PROFESSIONAL CLAIMS [address] [place] [address] [id number] BRYAN CSOTELLO Self - patient is the insured Medical (General) History Medical History History ICD Code Denies [place],DM,CVA,Lung disease,renal dise ase Elevated cholesterol Hypothyroid Hospitalized in 2010 for hyponatremia in relation to N/V/Diarrhea Tubular [place] [address] 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
[2025-01-27 10:19] LABS: MANUAL DIFF FLAG NO
[2025-01-27 10:43] LABS: Hematocrit 36.4 % (37.0-47.0); Hemoglobin 12.1 g/dl (12.0-16.0); Imm Gran Abs Auto 0.01 X10*3/uL (0.00-0.03); Imm Gran Pct Auto 0.3 % (0.0-0.4); Lymphocytes Absolute Auto 1.5 X10*3/uL (1.2-4.9); Mean Corpuscular HGB Conc 33.2 g/dl (31.0-35.0); Mean Corpuscular Hemoglobin 28.1 pg (27.0-33.0); Mean Corpuscular Volume 84.5 fL (80.0-98.0); NRBC Abs Auto 0.000 X10*3/uL (0.0-0.012); NRBC Pct Auto 0.0 /100WBC (0.0-0.2); Platelet Count 203 X10*3/uL (160-400); Red Blood Count 4.31 X10*6/uL (4.20-5.50); White Blood Count 3.4 X10*3/uL (4.8-10.8)
[2025-01-27 11:15] LABS: Alanine Aminotransferase 43 U/L (0-31); Albumin Level 3.8 g/dL (3.5-5.0); Alkaline Phosphatase 46 U/L (39-117); Anion Gap 11 (12-20); Aspartate Amino Transferase 51 U/L (5-31); Blood Urea Nitrogen 8 mg/dL (9-16); Calcium 9.2 mg/dL (8.4-10.2); Carbon Dioxide 27 mmol/L (22-29); Chloride 105 mmol/L (96-108); Cholesterol 135 mg/dL (<200); Estimated Glomerular Filt Rate > 60; HDL Cholesterol 39 mg/dL (>40); Potassium 4.4 mmol/L (3.3-5.1); Sodium 139 mmol/L (135-145); Total Protein 6.2 g/dL (6.5-8.0); Triglycerides 119 mg/dL (<150)
== END 2025-01-27 09:04 | disposition home or self-care (01) ==
LOC: HO.HMGCLDS 09:03
PROVIDERS: PCP Internal Medicine; Visit Provider Internal Medicine
DX: E06.3 Autoimmune thyroiditis (principal); D35.2 Benign neoplasm of pituitary gland; E03.8 Other specified hypothyroidism; E55.9 Vitamin D deficiency, unspecified; E78.5 Hyperlipidemia, unspecified; E27.40 Unspecified adrenocortical insufficiency
CPT/HCPCS: 36415; 80053; 80061; 82306; 82533; 84443; 85025; 86140

== ENCOUNTER → 2025-02-18 14:30 | Outpatient (REF) | payer MEDICARE, SELFPAY ==
--- NOTE | 2025-02-18 14:46 | CA_ITS ---
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 The calculated ejection fraction is 58% by biplane method. - No obvious valvular pathology seen on this study. Findings Procedure Information Contrast agent, definity, is being given per protocol without apparent complications. Left Ventricle Normal left ventricular cavity size. There is normal left ventricular wall thickness. The left ventricular systolic function is normal. The calculated ejection fraction is 58% by biplane method. There is no evidence of regional wall motion abnormalities. Diastolic function is normal for age. Right Ventricle Normal right ventricular cavity size and systolic function. Atria Both atria are normal in size. Aortic Valve There is a normal trileaflet aortic valve. There is mild calcification of the aortic valve. There is no aortic valve stenosis. There is no aortic valve regurgitation. Mitral Valve The mitral valve appears normal. There is no mitral valve regurgitation. There is no mitral valve stenosis. Pulmonic Valve The pulmonic valve is likely normal. Tricuspid Valve There is mild tricuspid valve regurgitation. There is no evidence of pulmonary hypertension. Great Vessels The asc aorta is normal in size. Venous The inferior vena cava is normal in size and collapses greater than 50% with inspiration. Pericardium/Pleural There is no evidence of pericardial effusion. Prior Study Comparison No significant change compared to prior study dated: 02/10/2019. Recommendations, Care & Conclusions No obvious valvular pathology seen on this study. Measurements 2D Linear Measurements IVSd: 1.00 0.6-0.9/0.6-1.0 cm LVIDd: 3.67 3.9-5.3/4.2-5.9 cm LVIDd Index: 2.15 2.4-3.2/2.2-3.1 cm/m2 LVIDs: 2.61 2.0-3.6 cm LVPWd: 0.83 0.7-1.1 cm LA Diam: 3.10 2.7-3.8/3.0-4.0 cm LAIDs Index: 1.81 1.5-2.3 cm/m2 LV Mass: 121.15 67-162/88-224 g LV Mass Index: 70.85 43-95/49-115 g/m2 LVOT Diam: 2.10 3.0+(-)1.3 cm 2D Systolic Function EF 4C: 56.80 >55% EF 2C: 60.70 >55% EF BiP: 58.30 >55% Mitral Valve MV Pk E: 0.87 MV PK A: 0.74 MV Decel Time: 194.00 E/A: 1.20 E'Lateral: 7.07 E'Medial: 6.31 E/E' Med: 13.70 E/E' Lat: 12.20 PHT: 57.00 MVA PHT: 3.86 Decel Carlton: 4.45 Aortic Valve AoV Pk Thai: 1.15 AoV Mn Thai: 0.82 AoV VTI: 0.28 AoV Pk Grad: 5.00 Aov Mn Grad: 3.00 LASHA Cont.VTI: 3.06 LVOT LVOT Pk Thai: 0.97 LVOT Mn Thai: 0.71 LVOT VTI: 0.25 LVOT Pk Grad: 4.00 LVOT Mn Grad: 2.00 LVOT Diam: 2.10 LVOT Area: 3.46 Diastolic Function MV Pk E: 0.87 MV Pk A: 0.74 E/A: 1.20 E'Medial: 6.31 E/E' Med: 13.70 E' Laterial: 7.07 E/E' Lat: 12.20 Tricuspid Valve TR Pk Thai: 2.35 TR Pk Grad: 22.00 RA Press: 8.00 RVSP: 30.00 Great Vessels Aorta Sinus of Valsalva: 25.40 2.0-3.[address] Ridge: 11.90 1.7-3.4 cm Ao Asc: 3.00 2.1-3.4 cm Ao Arch: 2.90 Updated in Other Vendor System with Status of Final Espinoza Caldwell MD electronically signed on 02/20/2025 2:42:57 PM with status of Final
--- OUTSIDE RECORDS SUMMARY | 2025-02-18 14:58 | XMS_ITS | Patient Health Record ---
Author Organization [facility] Address [address] [place] [address] Care Team Providers Care Outpatient Clerk Name Role Phone Donovan Lui Primary Care Provider Yobany Denis [phone] Reason For Referral No Information Medications Medication [...] Status Risk Notes Problem Colon cancer screening (817246125) Colon cancer screening (V76.51) Active confirmed Problem History of adenomatous polyp of colon (303444735) History of adenomatous polyp of colon (V12.72) Active confirmed Plan Of Treatment Future Test Test Name Order Date COLONOSCOPY 05/29/2012 Insurance Providers Payer Name Payer Address Payer Phone Subscriber Number Group Number Insured Name Patient Relationship to Insured Coverage Start Date Coverage End Date [employer] PROFESSIONAL CLAIMS [address] [place] [address] [id number] BRYAN COSTELLO Self - patient is the insured Medical (General) History Medical History History ICD Code Denies [place],DM,CVA,Lung disease,renal dise ase Elevated cholesterol Hypothyroid Hospitalized in 2010 for hyponatremia in relation to N/V/Diarrhea Tubular [place] [address] 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
== END ==
LOC: HO.CARD 14:30
PROVIDERS: Visit Provider Internal Medicine
DX: E78.5 Hyperlipidemia, unspecified (principal); E03.8 Other specified hypothyroidism; E06.3 Autoimmune thyroiditis
CPT/HCPCS: 93306; Q9957

== ENCOUNTER → 2025-02-18 14:46 | Outpatient (BNV) | payer MEDICARE, SELFPAY | PROVIDERS: Visit Provider Internal Medicine | DX: E78.5 Hyperlipidemia, unspecified (principal); E03.8 Other specified hypothyroidism; E06.3 Autoimmune thyroiditis; D35.2 Benign neoplasm of pituitary gland | CPT/HCPCS: 93306 ==

== ENCOUNTER 2025-04-02 13:33 | Outpatient (REF) | payer MEDICARE, SELFPAY ==
[2025-04-02 16:43] LABS: Alanine Aminotransferase 22 U/L (0-31); Albumin Level 4.2 g/dL (3.5-5.0); Alkaline Phosphatase 47 U/L (39-117); Aspartate Amino Transferase 25 U/L (5-31); Total Protein 6.9 g/dL (6.5-8.0)
== END 2025-04-02 13:34 | disposition home or self-care (01) ==
LOC: HO.HMGCLDS 13:33
PROVIDERS: PCP Internal Medicine; Visit Provider Internal Medicine
DX: R79.89 Other specified abnormal findings of blood chemistry (principal)
CPT/HCPCS: 36415; 80076

== ENCOUNTER 2025-04-13 12:55 | Outpatient (AMB) | payer MEDICARE, SELFPAY ==
--- NOTE | 2025-04-13 12:57 | MHC.OFFVIS ---
Vital Signs 04/13/25 12:59 Height 5 ft 2.31 in Weight 154 lb 1.65 oz BMI 27.9 BP 116/64 Blood Pressure Location Lt brachial Position Sitting Pulse 73 Pulse Source Pulse Oximeter Pulse Oximetry (%) 95 Oxygen Delivery Method Room Air Intake Visit Reasons: Pituitary microadenoma/Osteoporosis Intake Note: Patient present today for Pituitary microadenoma/Osteoporosis follow up visit. Reference Library Assistant Required: No Accompanied by: Self / Same As Patient Allergies No Known Allergies (No Known Allergies*) Allergy (Verified 04/13/25 13:00) Medication List - Last Reconciled 04/13/25 by Yobany Moran MD atorvastatin (Lipitor) 40 mg PO DAILY hydrocortisone 5 mg PO DAILY levothyroxine 88 mcg PO DAILY HPI Comments Details: 69 YO Female with PMHx Osteoporosis, a pituitary microadenoma, secondary adrenal insufficiency and osteoporosis is seen in F/U for the same. S 1) Osteoporosis: First diagnosed in 2017 with her DEXA revealing Osteoporosis of the Hip. She was started on Alendronate 12/03/2018, but we stopped this after her initial visit in order to complete a full workup for secondary causes of Osteoporosis. She stopped this as of 05/2021. She does have a brother with primary hyperparathyroidism who had a parathyroidectomy. Workup for secondary causes of Osteoporosis was largely WNL, other than Calcium high normal. She does report going through menopause in her early 40's. She used HRT for only 1-2 months after. She remains on alendronate for the time being.On alendronate for >5 yrs No history of pathologic fracture or ONJ. Has 2-3 servings of dietary calcium per day in the form of milk and cheese. Takes Calcium supplement 600 mg daily. Takes 1000 IU of Vitamin D daily. She does have adrenal insufficiency and uses Hydrocortisone 5 mg PO q am and 2.5 mg PO q pm. Denies ever using PPI, anticoagulant, or antiepileptic medication. Recent a.m. cortisol showed continued dysfunction of the adrenal axis Does no scheduled exercise. 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 Menses were always regular. . Did not breastfeed. Menopause was age 51. Denies any HRT. Denies history of Kidney stones: Does have a family history of Osteoporosis in his Brother and his Sister. His Brother had hyperparathyroidism and suffered a hip fracture. UTD on dental cleanings and sees dentist every 6 months. No planned upcoming dental work or extractions. She is currently on a drug holiday. No fx since last visit 2) Adrenal Insufficiency: She was initially diagnosed with adrenal insufficiency in [address] Lui. She was having frequent admissions for hyponatremia. 07/04/2016 she underwent cosyntropin stim testing which was inappropriate. She was diagnosed with adrenal insufficiency and was started on hydrocortisone. She remains on 5 mg PO q am 3) Pituitary Microadenoma. She had a pituitary MRI which revealed a 4 mm pituitary microadenoma. Pituitary panel was WNL.. Last MRI showed stability in the size of the adenoma DXA: 07/19/2022 FINDINGS: AP SPINE L1-L4: Current: BMD 1.188 g/cm2, Z-score 1.5, T-score 0.1, normal, 3.1% increase from previous, 8.9% increase from baseline (<5% change is not significant). Prior: BMD 1.152 g/cm2. Baseline: BMD 1.091 g/cm2. LEFT FEMUR, NECK: Current: BMD 0.700 g/cm2, Z-score -0.9, T-score -2.4, osteopenia. Prior: BMD 0.716 g/cm2. Baseline: BMD 0.821 g/cm2. LEFT FEMUR, TOTAL: Current: BMD 0.824 g/cm2, Z-score -0.2, T-score -1.5, osteopenia, 0.8% decrease from previous, 11.5% decrease from baseline (<5% change is not significant). Prior: BMD 0.831 g/cm2. Baseline: BMD 0.931 g/cm2. Pituitary MRI: 07/24/2022 FINDINGS: There is an area of decreased differential enhancement the anterior lobe of the pituitary gland in the midline which measures 4.0 x 2.0 x 2.0 mm in AP, transverse and craniocaudal dimensions. This measured 5.0 x 4.0 x 2.0 cm on the prior study. The infundibulum is midline. The cavernous sinuses opacify symmetrically. The internal carotid artery flow-voids are maintained. The optic chiasm is normal. No suprasellar soft tissue abnormality is seen. The sella turcica is normal. No diffusion abnormalities are identified to suggest an acute or subacute infarct. The ventricles and sulci are slightly commensurately prominent consistent with diffuse volume loss. Brain parenchymal signal is unremarkable. No mass effect or midline shift is seen. There is no acute or chronic hemorrhage. No extra-axial fluid collections are noted. The brainstem and cerebellum are normal. On postcontrast imaging, there is no other abnormal parenchymal or leptomeningeal enhancement. The craniovertebral junction, marrow signal, and midline structures are normal. The mastoid air cells are well-aerated. There is a retention cyst in the inferior right maxillary sinus. Thyroid US: 06/28/2021 Right Thyroid Lobe: 3.5 x 1.5 x 1.1 cm, volume 3.0 mL. Parenchyma: The gland echotexture is heterogeneous. Thyroid vascularity is normal. Left Thyroid Lobe: 4.2 x 1.7 x 1.0 cm, volume 3.7 mL. Parenchyma: The gland echotexture is heterogeneous. Thyroid vascularity is normal. Isthmus: 0.4 cm in maximum AP dimension. No focal thyroid nodule is seen. NODES: No lymphadenopathy is seen in the tissue surrounding the thyroid gland. Labs: Laboratory Tests 02/01/23 02/01/23 02/01/23 10:34 10:34 10:34 Sodium 141 Potassium 4.1 Creatinine 0.94 Estimated GFR 59 Osmolality 295 25-OH Vitamin D Total 47.9 TSH 0.96 Free T4 1.25 Total T3 109 Prolactin Undiluted 7.6 Somatomedin-C 59 PTH Intact 74 Calcium (PTH Intact) 9.1 ACTH 02/05/23 09:13 Sodium Potassium Creatinine Estimated GFR Osmolality 25-OH Vitamin D Total TSH Free T4 Total T3 Prolactin Undiluted Somatomedin-C PTH Intact Calcium (PTH Intact) ACTH 30 The patient is a 69-year-old female presenting for follow-up related to pituitary adrenal insufficiency. She is currently taking hydrocortisone for adrenal insufficiency respectively. There has been a recent modification in her hydrocortisone dosing with an observed stable pattern. Recent. She assessments of her ad axis by a.m. cortisol renal showed she needs continued hydrocortisone has previously experienced an increase in dose requirements during times of stress or after dental procedures. She is also mindful of the impacts of steroids and communicates her experiences effectively, providing insight into her management strategies. Her osteoporosis is documented as stable, and she is advised to continue calcium and vitamin D while not recommencing alendronate therapy. Her thyroid condition remains stable under her current medication regimen. The patient maintains a diet sufficient in calcium and vitamin D to support her treatment for osteoporosis. She continues to follow nutritional guidance aligned with endocrinological and bone health principles. [facility] Medical History (Updated 01/30/25 @ 08:49 by Kika Miner MD) Hip pain, bilateral Sessile serrated polyp of colon Diverticulosis Pituitary microadenoma Hepatitis B Annual physical exam Tinnitus Vitamin D deficiency Adrenal insufficiency Hyperlipidemia Tick bite Shoulder pain Hepatitis B Osteoporosis Hypothyroidism Adrenal cortex insufficiency Surgical History Hx of colonoscopy History of carpal tunnel surgery Family History Father No problems noted. Mother No problems noted. Brother Hyperparathyroidism Sister Osteoporosis Social History Household Members: Spouse Housing: House Do you presently have visiting nurse or other home services: No Alcohol intake: former Patient Tobacco Use Status: Former Tobacco user Cigarette Packs Per Day: 1 Years Smoked: 25 e-Cigarette/Vaping Use: Never Used Substance Use Type: Marijuana service: No Current occupational status: retired Cognitive needs: No Hearing needs: No Vision needs: Yes Assessment & Plan Assessment & Plan (1) Adrenal insufficiency: Comment: On hydrocortisone 5 mg a day f/u [facility] Code(s): E27.40 - Unspecified adrenocortical insufficiency Category: Medical Plan: This 67-year-old white female with a history of secondary adrenal insufficiency currently replaced on hydrocortisone 5 mg in the a.m. .. She appears to be doing clinically well. Plan is to continue the current management 1. secondary adrenal insufficiency: The condition is being managed with hydrocortisone 5 mg in AM . Went over sick day rules again ensured the patient has rescue hydrocortisone home. 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 Qualified Code(s): E03.8 - Other specified hypothyroidism; E06.3 - Autoimmune thyroiditis Plan: Follow up with primary care (3) Osteoporosis: Comment: alendronate 11/2018 until 09/2023, started drug holiday 10/2023, DEXA 07/2022 T-score lowest -2.4, femoral neck, DEXA 08/09 T score -2.2 Code(s): M81.0 - Age-related osteoporosis without current pathological fracture Category: Medical Qualifiers: Osteoporosis type: age-related Presence of current pathological fracture: without current pathological fracture Qualified Code(s): M81.0 - Age-related osteoporosis without current pathological fracture Plan: Currently off alendronate, vitamin-D and calcium supplementation. Bone density remains stable recently 07/2024 and urine NTX is suppressed Will continue drug holiday with calcium and vitamin-D. We will check DEXA bone density in 07/2026 this progresses into the osteoporotic range may consider restarting the alendronate 3. Osteoporosis: Continue calcium and vitamin D supplementation with monitoring of bone density, and no need to restart alendronate therapy at this time. 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
[2025-04-13 12:59] VITALS: BP 116/64; PULSE 73; O2SAT 95; BMI 27.9
--- OUTSIDE RECORDS SUMMARY | 2025-04-13 14:03 | XMS_ITS | Patient Health Record ---
Author Organization [facility] Address [address] [place] [address] Care Team Providers Care Supervisor Multifocal Lens Name Role Phone Donovan Lui Primary Care Provider Yobany Denis [phone] Reason For Referral No Information Medications Medication [...] Status Risk Notes Problem Colon cancer screening (764782624) Colon cancer screening (V76.51) Active confirmed Problem History of adenomatous polyp of colon (902275093) History of adenomatous polyp of colon (V12.72) Active confirmed Plan Of Treatment Future Test Test Name Order Date COLONOSCOPY 05/29/2012 Insurance Providers Payer Name Payer Address Payer Phone Subscriber Number Group Number Insured Name Patient Relationship to Insured Coverage Start Date Coverage End Date O [employer] CLAIMS [address] [place] [address] [id number] BRYAN COSTELLO Self - patient is the insured Medical (General) History Medical History History ICD Code Denies [place],DM,CVA,Lung disease,renal dise ase Elevated cholesterol Hypothyroid Hospitalized in 2010 for hyponatremia in relation to N/V/Diarrhea Tubular adenoma [place] [address] 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
== END 2025-04-13 13:22 | disposition home or self-care (01) ==
LOC: HO.ENCR 12:56
PROVIDERS: PCP Internal Medicine; Visit Provider Internal Medicine Endocrinology, Diabetes & Metabolism
DX: E27.40 Unspecified adrenocortical insufficiency (principal); E03.8 Other specified hypothyroidism; E06.3 Autoimmune thyroiditis; M81.0 Age-related osteoporosis without current pathological fracture; D35.2 Benign neoplasm of pituitary gland
CPT/HCPCS: 99213

== ENCOUNTER → 2025-04-13 12:55 | Outpatient (BNVA) | payer MEDICARE, SELFPAY | PROVIDERS: PCP Internal Medicine; Visit Provider Internal Medicine Endocrinology, Diabetes & Metabolism | DX: E27.40 Unspecified adrenocortical insufficiency (principal); E03.8 Other specified hypothyroidism; E06.3 Autoimmune thyroiditis; M81.0 Age-related osteoporosis without current pathological fracture; D35.2 Benign neoplasm of pituitary gland | CPT/HCPCS: 99212 ==

== ENCOUNTER → 2025-05-28 12:49 | Outpatient (BNV) | payer MEDICARE, SELFPAY | PROVIDERS: PCP Internal Medicine; Visit Provider Radiology Diagnostic Radiology | DX: D35.2 Benign neoplasm of pituitary gland (principal); Q05.9 Spina bifida, unspecified | CPT/HCPCS: 70553 ==

== ENCOUNTER 2025-05-28 12:53 | Outpatient (REF) | payer MEDICARE, SELFPAY ==
--- NOTE | ~2025-05-28 | MR_ITS ---
EXAMINATION: MR BRAIN PITUITARY PROTOCOL WITHOUT AND WITH CONTRAST CLINICAL INFORMATION: D35.2. Benign neoplasm of pituitary gland. COMPARISON: July 24, 2022 TECHNIQUE: Multiplanar, multisequence MRI of the brain pituitary protocol was obtained before and after the intravenous administration of 3.5 mL gadolinium based (Gadavist) without reported immediate complications.. FINDINGS: There is a 3 x 2.6 mm nonenhancing isointense T1 and T2 signal in the right midline intrasellar/pituitary gland. The pituitary stalk is midline measuring 2 mm in maximal thickness. The optic chiasm is intact with normal signal. The prechiasmatic segments of the optic nerves are normal. Flow-void signal within the main vessels in the cavernous sinuses is normal. No restricted diffusion in the brain parenchyma. There is a focal, 5 mm, round, intrinsic hyperintense T1 restricted diffusion signal abnormality in the medial aspect of the extraconal compartment of the anterior medial right orbit just medial to the right eyeball. No acute intracranial hemorrhage, mass effect, midline shift, hydrocephalus or herniation. [place]-white matter differentiation is normal. Flow-void signal within the main cerebral vessels is normal. There is CSF prominence of the Meckel's caves, bilaterally. No gross abnormal enhancement within the intra-axial or the extra-axial compartment of the cranium based upon axial T1 sequence. Mucosal thickening, paranasal sinuses. Craniocervical junction is intact with normal position of the cerebellar tonsils.. MR/MR head/brain wo/w con IMPRESSION: 3 x 2.6 mm microadenoma, right midline adenohypophysis. Stable. Probable 5 mm dermoid cyst, right orbit. Meningocele, Meckel's caves, bilaterally. Electronically signed by: Isidoro Fried MD 05/28/2025 02:00 PM CONNIE
--- OUTSIDE RECORDS SUMMARY | 2025-05-28 16:01 | XMS_ITS | Patient Health Record ---
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 Name Role Phone Donovan Lui Primary Care Provider Yobany Denis [phone] Reason For Referral No Information Medications Medication SIG (Take, Route, Fr equency, Duration) Notes Start Date End Date Status Levothyroxine Sodium 07/16/2024 07/16/99 Active Simvastatin 07/16/2024 07/16/2024 Active MoviPrep 100 GM as directed Orally o nce; Duration: 1 dose 05/29/2012 Active Zofran ODT 4 MG 1 tab Orally Q 4-6 h ours prn nausea/vomiting; Duration: 1 day 07/23/2012 Active Problems Problem Type SNOMED Code ICD Code Onset Dates Problem Status W/U Status Risk Notes Problem Colon cancer screening (623746073) Colon cancer screening (V76.51) Active confirmed Problem History of adenomatous polyp of colon (550811292) History of adenomatous polyp of colon (V12.72) Active confirmed Plan Of Treatment Future Test Test Name Order Date COLONOSCOPY 05/29/2012 Insurance Providers Payer Name Payer Address Payer Phone Subscriber Number Group Number Insured Name Patient Relationship to Insured Coverage Start Date Coverage End Date [employer] CLAIM[employer] [address] [place] [address] [id number] BRYAN COSTELLO Self - patient is the insured Medical (General) History Medical History History ICD Code Denies [place],DM,CVA,Lung disease,renal dise ase Elevated cholesterol Hypothyroid Hospitalized in 2010 for hyponatremia in relation to N/V/Diarrhea Tubular [place] [address] K atzen Surgical History Surgery Date(Month/Year) carpal tunnel on the right
== END 2025-05-28 12:54 | disposition home or self-care (01) ==
LOC: HO.MRI 12:53
PROVIDERS: PCP Internal Medicine; Visit Provider Internal Medicine Endocrinology, Diabetes & Metabolism
DX: D35.2 Benign neoplasm of pituitary gland (principal)
CPT/HCPCS: 70553; A9585